=== PATIENT | male | born 1940 | race Caucasian/White ===

== ENCOUNTER → 2017-04-06 | Outpatient (CLI) | payer BC ==
[~2017-04-06] MED LIST: ACET325T30; CALC1TAB9; CLON1TAB3 PO; DICL1GEL28; FLM4 PO; GLUCTAB7; LANS15CA6 PO; LUTE20CA; PSYL55.43 PO; TRAM-453 PO; VITAMIN B50 PO
[2017-04-06 09:35] LABS: BASO % 0.3 %; BASO ABS # 0.01 K/uL (0-0.2); COMPLETE YES; EOS % 2.7 %; HEMATOCRIT 39.5 % (42-52); IG% 0.3 %; LYMPH % 29.1 %; LYMPH ABS # 1.07 K/uL (1.2-3.4); MEAN CELL VOLUME 90.4 fL (80-100); MEAN CORPUSCULAR HGB CONC 33.2 g/dl (32-36); MEAN PLATELET VOLUME 9.2 fL (7.4-10.4); MONO % 8.4 %; NEUT % 59.2 %; PLATELET COUNT 201 K/uL (130-400); RED BLOOD COUNT 4.37 M/uL (4.7-6.1); WHITE BLOOD COUNT 3.68 K/uL (4.8-10.8)
[2017-04-06 09:56] LABS: ALB/GLOB RATIO 1.4 (0.9-2); ALKALINE PHOSPHATASE 47 U/L (45-117); ALT/SGPT 21 U/L (12-78); AST/SGOT 14 U/L (15-37); BLOOD UREA NITROGEN 16 mg/dl (7-18); BUN/CREATININE RATIO 18.9 (10-20); CALCIUM 8.9 mg/dl (8.5-10.1); CARBON DIOXIDE 27 mmol/L (21-32); CHLORIDE 107 mmol/L (98-107); CHOLESTEROL 200 mg/dl (0-200); CREATININE 0.82 mg/dl (0.60-1.40); GLUCOSE 108 mg/dl (70-99); POTASSIUM 4.3 mmol/L (3.5-5.1); SODIUM 139 mmol/L (136-145); TRIGLYCERIDES 94 mg/dl (0-150); VERY LOW DENSITY LIPOPROT CALC 19 mg/dl
[2017-04-06 10:05] LABS: CHOLESTEROL/HDL RATIO 3.6; HDL CHOLESTEROL 56 mg/dl; LDL CHOLESTEROL CALCULATED 125 mg/dl; PROSTATE SPECIFIC ANTIGEN 0.026 ng/ml (0.000-4.000); TOTAL IRON BINDING CAPACITY 292 mcg/dl (250-450)
[2017-04-06 11:44] LABS: ESTIMATED AVERAGE GLUCOSE 117 mg/dl; HA1C FLAG Normal (Normal)
== END | disposition home or self-care (01) ==
LOC: C.LAB 08:38
PROVIDERS: ATTEND Family Medicine
DX: C61 Malignant neoplasm of prostate (principal); R73.09 Other abnormal glucose; E55.9 Vitamin D deficiency, unspecified; D51.9 Vitamin B12 deficiency anemia, unspecified; E78.9 Disorder of lipoprotein metabolism, unspecified; R53.83 Other fatigue

== ENCOUNTER → 2018-01-17 | Outpatient (CLI) | payer BC ==
[~2018-01-17] MED LIST changes: +ACET-1346; -ACET325T30
[2018-01-17 17:52] LABS: BASO % 0.4 %; BASO ABS # 0.02 K/uL (0-0.2); EOS % 1.3 %; EOS ABS # 0.07 K/uL (0-0.5); HEMOGLOBIN 12.9 g/dL (14.0-18.0); IG# 0.01 K/uL (0.00-0.02); LYMPH % 22.1 %; MEAN CELL VOLUME 89.4 fL (80-100); MEAN CORPUSCULAR HEMOGLOBIN 31.2 pg (25-34); MEAN CORPUSCULAR HGB CONC 34.9 g/dl (32-36); MEAN PLATELET VOLUME 9.3 fL (7.4-10.4); MONO % 6.3 %; MONO ABS # 0.34 K/uL (0.11-0.59); NEUT % 69.7 %; PLATELET COUNT 206 K/uL (130-400); RED CELL DISTRIBUTION WIDTH CV 13.8 % (11.5-14.5); RED CELL DISTRIBUTION WIDTH SD 45.8 fL (36.4-46.3); WHITE BLOOD COUNT 5.44 K/uL (4.8-10.8)
[2018-01-17 18:20] LABS: ALBUMIN 3.9 gm/dl (3.4-5.0); ALT/SGPT 21 U/L (12-78); AST/SGOT 15 U/L (15-37); BLOOD UREA NITROGEN 15 mg/dl (7-18); CALCIUM 8.5 mg/dl (8.5-10.1); CARBON DIOXIDE 27 mmol/L (21-32); CHOLESTEROL 194 mg/dl (0-200); CREATININE 0.86 mg/dl (0.60-1.40); GLUCOSE 134 mg/dl (70-99); POTASSIUM 4.1 mmol/L (3.5-5.1); SODIUM 135 mmol/L (136-145); URIC ACID 3.4 mg/dl (2.6-7.2)
[2018-01-17 18:29] LABS: ALKALINE PHOSPHATASE 58 U/L (45-117); LDL CHOLESTEROL CALCULATED 105 mg/dl; TOTAL PROTEIN 6.7 gm/dl (6.4-8.2); TRANSFERRIN 255 mg/dl (200-360)
[2018-01-18 06:07] LABS: HEMOGLOBIN A1C 5.8 % (4.5-5.6)
== END | disposition home or self-care (01) ==
LOC: C.LAB 16:24
PROVIDERS: ATTEND Family Medicine
DX: R73.09 Other abnormal glucose (principal); E55.9 Vitamin D deficiency, unspecified; D51.9 Vitamin B12 deficiency anemia, unspecified; E78.9 Disorder of lipoprotein metabolism, unspecified; R53.83 Other fatigue

== ENCOUNTER → 2018-01-22 | Outpatient (CLI) | payer BC ==
--- NOTE | 2018-01-22 14:51 | DIAGNOSTIC IMAGING REPORT ---
R KNEE 1 OR 2 VIEWS ROUTINE CLINICAL HISTORY: 77 years-old Male presenting with PAIN IN BOTH HIPS AND KNEES. TECHNIQUE: Frontal and lateral views of the right knee were obtained. COMPARISON: Correlation made to plain radiographs of the left knee performed the same day. FINDINGS: Knee joint spaces preserved. No acute fracture or malalignment. No advanced degenerative change. Atherosclerosis. No knee joint effusion. IMPRESSION: 1. No acute osseous injury. 2. No advanced degenerative change. Electronically signed by: Diomedes Henson M.D. 01/22/2018 2:49 PM Dictated Date/Time: 01/22/2018 2:48 PM
--- NOTE | 2018-01-22 14:52 | DIAGNOSTIC IMAGING REPORT ---
R HIP UNILATERAL 2 VIEWS CLINICAL HISTORY: 77 years-old Male presenting with PAIN IN BOTH HIPS AND KNEES. TECHNIQUE: Frontal and frog-leg lateral views of the right hip were obtained. COMPARISON: Correlation made to plain radiographs of the left hip performed the same day. FINDINGS: Osteophytosis noted at the hip joint. The joint space is grossly preserved. Mild subchondral sclerosis suggested in both the acetabulum and the femoral head. No deformity of the femoral head. The hip joint is congruent. No acute fracture or malalignment. Visualized portion of the bony pelvis intact. Brachytherapy seeds noted in the prostate. IMPRESSION: 1. No acute osseous injury. 2. Degenerative changes of the right hip. Electronically signed by: Diomedes Henson M.D. 01/22/2018 2:51 PM Dictated Date/Time: 01/22/2018 2:50 PM
--- NOTE | 2018-01-22 14:55 | DIAGNOSTIC IMAGING REPORT ---
L KNEE 1 OR 2 VIEWS ROUTINE HISTORY: 77 years-old Male PAIN IN BOTH HIPS AND KNEES chronic bilateral knee pain COMPARISON: Right knee radiographs of same day TECHNIQUE: 2 views of the left knee FINDINGS: There is only minimal joint space narrowing with marginal spurring about the knee. No acute fracture or dislocation. No large joint effusion or intra-articular loose body. IMPRESSION: No acute fracture. The above report was generated using voice recognition software. It may contain grammatical, syntax or spelling errors. Electronically signed by: Al Wyman M.D. 01/22/2018 2:54 PM Dictated Date/Time: 01/22/2018 2:48 PM
--- NOTE | 2018-01-22 15:01 | DIAGNOSTIC IMAGING REPORT ---
L HIP UNILATERAL 2 VIEWS HISTORY: 77 years-old Male PAIN IN BOTH HIPS AND KNEES chronic left hip pain COMPARISON: Right hip radiographs of same day TECHNIQUE: 2 views of the left hip FINDINGS: Moderate joint space narrowing with marginal spurring and subchondral sclerosis involves the left femoral acetabular joint. There is no acute fracture or dislocation. The imaged left hemipelvis appears intact. Phleboliths project over the left hemipelvis. Brachytherapy seeds of the prostate. IMPRESSION: Moderate degenerative changes about the left hip without acute fracture or dislocation. The above report was generated using voice recognition software. It may contain grammatical, syntax or spelling errors. Electronically signed by: Al Wyman M.D. 01/22/2018 2:59 PM Dictated Date/Time: 01/22/2018 2:58 PM
== END | disposition home or self-care (01) ==
LOC: C.RAD 14:28
PROVIDERS: ATTEND Family Medicine
DX: M25.551 Pain in right hip (principal); M25.552 Pain in left hip; M25.561 Pain in right knee; M25.562 Pain in left knee; M16.0 Bilateral primary osteoarthritis of hip; M17.0 Bilateral primary osteoarthritis of knee

== ENCOUNTER → 2018-01-24 | Outpatient (CLI) | payer BC | END | disposition home or self-care (01) | LOC: C.PATHSPEC 10:14 | PROVIDERS: ATTEND Urology | DX: R31.0 Gross hematuria (principal); C61 Malignant neoplasm of prostate ==

== ENCOUNTER 2024-05-29 12:40 | Inpatient (IN) ==
[2024-05-29 13:19] LABS: Basophils # (auto) 0.02 K/uL (0.00-0.20); Basophils % (auto) 0.3 %; Eosinophils # (auto) 0.03 K/uL (0.00-0.50); Eosinophils % (auto) 0.4 %; Hematocrit (blood only) 34.5 % (42.0-52.0); Hemoglobin 12.9 g/dl (14.0-18.0); Immature Granulocytes # (auto) 0.13 K/uL (0.01-0.20); Immature Granulocytes % (auto) 1.7 %; Lymphocytes # (auto) 0.95 K/uL (1.20-3.40); Lymphocytes % (auto) 12.7 %; Mean Corpuscular Hemoglobin 32.6 pg (25.0-34.0); Mean Corpuscular Hgb Conc 37.4 g/dL (32.0-36.0); Mean Corpuscular Volume 87.1 fL (80.0-100.0); Mean Platelet Volume 8.9 fL (9.4-12.4); Monocytes # (auto) 0.71 K/uL (0.11-0.59); Monocytes % (auto) 9.5 %; Neutrophils # (auto) 5.66 K/uL (1.40-6.50); Neutrophils % (auto) 75.4 %; Platelet Count 263 K/uL (130-400); RDW Coefficient of Variation 12.1 % (11.5-14.5); RDW Standard Deviation 39.3 fL (36.4-46.3); Red Blood Count 3.96 M/uL (4.70-6.10)
--- NOTE | 2024-05-29 13:33 | Emergency Department Note ---
Impression & Plan Weakness, Acute hyponatremia, Falling, Acute head trauma, Confusion ED Provider Note NAME: HALEY STORM AGE: 84 SEX: M : 1940 ARRIVES VIA: Walk-In INFORMANT: [Patient][] ED PROVIDER(S): [Jose Ramon Saul MD] CHIEF COMPLAINT: Weakness HISTORY OF PRESENT ILLNESS: The patient is an 84-year-old male who apparently, as per his , has become increasingly weak and confused over the last 3 to 4 days. He actually fell 4 times yesterday suffering some skin tears to the left arm and a small superficial laceration to the left lateral forehead/scalp. Today, the patient is too weak to even stand on his own. There has been no cough or congestion, no respiratory complaints. No vomiting or diarrhea. The patient has not had fever. As per his , his tetanus is current. PMHx/PSHx/Social Hx: See Below PHYSICAL EXAM: GENERAL: Patient is in no acute distress. HEENT: The patient has a small superficial abrasion/laceration to the left lateral forehead/scalp. No surrounding erythema. This wound does not require suturing. NECK: No stridor, no adenopathy, nontender cervical spine, trachea is midline. LUNGS: Clear to auscultation bilaterally when listening anterior, no wheeze, no rhonchi, breath sounds equal. HEART: Without murmurs gallops or rubs, regular rate and rhythm. ABDOMEN: Soft, nontender, no peritonitis. EXTREMITIES: No cyanosis, full range of motion of all the joints without pain or difficulty. Patient does have several skin tears with contusions to the left arm. No suturing required. No pain to move the joints of the left arm. There is an abrasion to the left anterior knee. No pain to move the knee joint. NEUROLOGIC: Awake and alert, poor historian, moves all extremities. No speech slur. SKIN: No jaundice, no diaphoresis. DIFFERENTIAL DIAGNOSIS: Intracranial bleeding, C-spine injury, dehydration, electrolyte imbalance, UTI, stroke, among others. EMERGENCY DEPARTMENT PROCEDURES: MEDICAL DECISION MAKING: There is no leukocytosis. A mild anemia was seen. Looking back at previous testing, the patient carries a history of a mild anemia. There was a normal platelet count. No coagulopathy. Sodium was low at 116, this certainly would explain his weakness and confusion. There was no renal failure. Lactic acid level was not elevated making sepsis less likely. No concerning liver enzyme elevation. ECG shows a sinus bradycardia, no ischemia. Cardiac enzyme testing x 1 is not consistent with acute cardiac injury. Urinalysis showed some ketones, no infection. COVID, influenza and RSV test were negative. Chest x- ray showed a potential infiltrate versus atelectasis in the left lower lung. Of note, the patient has not had respiratory complaints. Brain CT shows no acute bleed or mass effect. C-spine CT shows no acute fracture. Patient's skin tears and contusions did not require anything more than conservative management. The patient was given a 500 cc saline bolus for his hyponatremia. He received IV Zofran for nausea and vomiting that developed while here in the ED. I did speak with the patient and his , I spoke with case management, the on- call hospitalist has been consulted. I do believe the hyponatremia is causing his complaints. At this point, the cause of the hyponatremia is not clear. Prior/Outside records/notes reviewed: None ECG per my interpretation: Indication was weakness. The ECG shows a sinus bradycardia with a rate of 59. There is no acute ST elevation, no PVCs. The QTc is 421. Continuous Cardiac Monitoring per my interpretation: An order was placed for continuous cardiac monitoring. The monitor shows a rate of 60 with normal sinus rhythm. Imaging/x-ray results per my interpretation: Chest x-ray shows a patchy consolidation in the area of the left lower lung, this could be atelectasis or pneumonia. Chronic Medical/Social conditions affecting care: Advanced age. Care/Management discussed with: Case management, the on-call hospitalist. Level of care consideration(s): After review of the information above and other included data: --I believe the patient requires escalation of care to admission Critical Care Note: I have personally spent 41 minutes of critical care time in the direct management of this patient. This includes bedside care, interpretation of diagnostic studies, and testing, discussion with consultants, patient, and family members, and other required patient management activities. This 41 minutes is in excess of all separately billable procedures. DISPOSITION: Admission Past Med/Surg History Problem List (Updated 05/29/24 @ 19:25 by Jose Ramon Saul MD) Confusion (Acute) Acute head trauma (Acute) Falling (Acute) Acute hyponatremia (Acute) Weakness (Acute) Acute hyponatremia Acute foreign body of right ear canal Gait disturbance Tick bite Nocturia Hip pain Situational stress Hip arthritis Multifactorial gait disorder Impacted ear wax Joint pain Weight loss Adult situational stress disorder Stress due to family tension Mild cognitive disorder GERD (gastroesophageal reflux disease) Sensorineural hearing loss (SNHL) of both ears Trochanteric bursitis, right hip Esophageal dysphagia Medical History Greater trochanteric pain syndrome Sinusitis Impacted cerumen, right ear Right hip pain Encounter for pre-operative examination Encounter for pre-operative examination Poor historian Osteoarthritis Stomach ulcer HX OF ULCER GERD (gastroesophageal reflux disease) Cancer PROSTATE (RADIATION [place]) - 2012 Memory problem FORGETFULL WITH NAMES Surgical History History of cataract surgery History of esophagogastroduodenoscopy (EGD) History of colonoscopy History of herniorrhaphy History of tooth extraction Family History Mother Diabetes Uncle Colorectal cancer Aunt Colorectal cancer Father Stroke Denies family history of Ovarian cancer Prostate cancer Myocardial infarction Breast cancer Lung cancer Social History Smoking Status: Never smoker Second Hand Exposure: No; Do You Dip or Chew Tobacco: No; Hx Alcohol Use: Yes Alcohol type: wine Alcohol Intake Frequency: 2-3 x/Week Hx Substance Use: No Preferred Language: Lao Communication Ability: Effective Visual Impairment: Limited Hearing Ability: Use of Hearing Aid Towel [place] Required: No marital status: Current Living Situation: Spouse current occupational status: retired How many Children do You have: 3 Feels Safe at Home: Yes Childhood Exposure to Second-Hand Smoke: No Diet: regular caffeine: Yes Dental Care, Regularly: Yes Physical Activity Frequency: Daily Physical Activity Frequency Comment: walking Seatbelt Use: always Sunscreen Use: Yes Assistive Devices: Glasses and Hearing Aid - Left Allergies Allergies Allergy/AdvReac Type Severity Reaction Status Date / Time No Known Drug Allergies Allergy Verified 05/29/24 14:24 Home Meds Home Medications Medication Instructions Recorded Confirmed calcium citrate 315 mg 1 tab PO 2XWK 10/30/18 05/29/24 calcium-vitamin D3 6.25 mcg (250 unit) tablet (Citracal + Vitamin D Maximum) diclofenac sodium 1 % topical gel 2 g topical QID 08/23/22 05/29/24 Previous Rx's Medication Instructions Recorded sertraline 50 mg tablet 75 mg (1.5 x 50 mg) PO DAILY #45 07/25/23 tabs rivastigmine tartrate 3 mg capsule 3 mg PO BID #60 caps 02/21/24 methylprednisolone 4 mg tablet 4 mg PO DAILY #90 tabs 04/29/24 desmopressin 0.2 mg tablet 0.6 mg (3 x 0.2 mg) PO HS #90 tabs 05/21/24 Results & Data (ED) Vital Signs Vital Signs - 24 hr 05/29/24 12:44 05/29/24 12:48 05/29/24 14:15 Temperature 36.7 C Temperature Source Temporal Artery Scan Pulse Rate 60 54 L 61 Pulse Rate from SpO2 Sensor 61 Pulse Rhythm Regular Respiratory Rate 18 14 20 Respiratory Effort / Characteristics Non-Labored Spontaneous Respiratory Depth Normal Blood Pressure 166/72 H 140/64 Blood Pressure Mean 103 94 Pulse Oximetry 97 98 98 Oxygen Delivery Method Room Air Room Air Sepsis Recent Fever Within 48 Hours No Sepsis New/Unexplained Change in Mental Status No Sepsis Action Taken by Nursing No Action Required 05/29/24 14:17 05/29/24 14:30 Temperature Temperature Source Pulse Rate 61 62 Pulse Rate from SpO2 Sensor 61 Pulse Rhythm Respiratory Rate 12 Respiratory Effort / Characteristics Respiratory Depth Blood Pressure 140/54 L Blood Pressure Mean 82 Pulse Oximetry 98 Oxygen Delivery Method Sepsis Recent Fever Within 48 Hours Sepsis New/Unexplained Change in Mental Status Sepsis Action Taken by [facility] Medications Current Medication List: was personally reviewed by me Laboratory Data Attestation: I reviewed the patient's lab results. 05/29/24 13:00 05/29/24 18:05 Lab Results 05/29/24 05/29/24 05/29/24 Range/Units 13:00 13:38 14:15 WBC 7.50 (4.8-10.8) K/ul RBC 3.96 L (4.70-6.10) M/uL Hgb 12.9 L (14.0-18.0) g/dl Hct 34.5 L (42.0-52.0) % MCV 87.1 (80.0-100.0) fL MCH 32.6 (25.0-34.0) pg MCHC 37.4 H (32.0-36.0) g/dL RDW Std Deviation 39.3 (36.4-46.3) fL RDW Coeff of Elisa 12.1 (11.5-14.5) % Plt Count 263 (130-400) K/uL MPV 8.9 L (9.4-12.4) fL Immature Gran % (Auto) 1.7 % Neut % (Auto) 75.4 % Lymph % (Auto) 12.7 % [place] % (Auto) 9.5 % Eos % (Auto) 0.4 % Baso % (Auto) 0.3 % Neut # (Auto) 5.66 (1.40-6.50) K/uL Lymph # (Auto) 0.95 L (1.20-3.40) K/uL [place] # (Auto) 0.71 H (0.11-0.59) K/uL Eos # (Auto) 0.03 (0.00-0.50) K/uL Baso # (Auto) 0.02 (0.00-0.20) K/uL Immature Gran # (Auto) 0.13 (0.01-0.20) K/uL PT 10.8 (9.0-12.0) Seconds INR 1.0 (0.9-1.1) APTT 29 (21-31) Seconds PTT Ratio 1.1 Sodium 116 L* (136-145) mmol/L Potassium 4.1 (3.5-5.1) mmol/L Chloride 86 L (98-107) mmol/L Carbon Dioxide 24 (21-32) mmol/L Anion Gap 6 (3-11) BUN 14 (6-23) mg/dl Creatinine 0.55 L (0.6-1.4) mg/dl Est Cr Clr Drug Dosing Not Reportable Est GFR ( Amer) 110.1 ml/min Est GFR (Non-Af Amer) 95.0 ml/min BUN/Creatinine Ratio 25.5 H (10-20) Glucose 104 H (70-99(Fasting)) mg/dl Lactate 0.8 (0.4-2.0) mmol/L Calcium 8.8 (8.6-10.3) mg/dl Magnesium 2.0 (1.7-2.4) mg/dl Total Bilirubin 1.2 H (0.2-1.0) mg/dl AST 27 (13-39) U/L ALT 17 (7-52) U/L Alkaline Phosphatase 54 (34-104) U/L Troponin I High Sens 8.0 (0-20) pg/ml Total Protein 6.8 (6.0-8.3) gm/dl Albumin 4.5 (3.4-5.0) gm/dl Globulin 2.3 L (2.5-4.0) gm/dl Albumin/Globulin Ratio 2.0 (0.9-2) Procalcitonin < 0.02 (0-0.5) ng/ml Urine Color Yellow Urine Appearance Clear (Clear) Urine pH 7.5 (4.5-7.5) Ur Specific [place] 1.017 (1.000-1.030) Urine Protein Negative (Negative) Urine Glucose (UA) Negative (Negative) Urine Ketones Trace H (Negative) Urine Blood Negative (Negative) Urine Nitrite Negative (Negative) Urine Bilirubin Negative (Negative) Urine Urobilinogen Negative (Negative) Ur Leukocyte Esterase Negative (Negative) SARS-CoV-2 (PCR) NEGATIVE (Negative) Influenza Type A (PCR) Negative (Neg) Influenza Type B (PCR) Negative (Neg) RSV (RT-PCR) Negative (Neg) Administered Medications Discontinued Medications Sodium Chloride (Nss) 500 mls @ 999 mls/hr IV .Q31M ONE Stop: 05/29/24 13:59 Last Infusion: 05/29/24 14:51 Dose: Infused Documented By: Admin: 05/29/24 13:35 Dose: 999 mls/hr Documented By: MONICA Sodium Chloride (Nss) 500 mls @ 999 mls/hr IV .Q31M ONE Stop: 05/29/24 14:14 Last Admin: 05/29/24 14:51 Dose: Not Given Documented By: MONICA Sodium Chloride (Hypertonic Saline 3%) 50 mls @ 300 mls/hr IV .Q10M ONE; Protocol Stop: 05/29/24 15:39 Last Infusion: 05/29/24 16:11 Dose: Infused Documented By: MONICA Co-signed By: NASIM Admin: 05/29/24 16:00 Dose: 300 mls/hr Documented By: MONICA Co-signed By: SNS Ondansetron HCl (Ondansetron Inj 2 Mg/Ml 2 Ml Vial) Confirm Administered Dose 4 mg .ROUTE .STK-MED ONE Stop: 05/29/24 14:07 Last Admin: 05/29/24 14:08 Dose: 4 mg Documented By: FAYE Imaging Data Radiologist's Impression: Chest X-Ray 05/29/24 12:48 XR chest 1V portable HISTORY: Sepsis COMPARISON: Chest 02/06/2008. FINDINGS: No pneumothorax. No pleural effusions. The heart is normal in size. Mild diffuse interstitial thickening. This may be chronic. No evidence for pulmonary edema. No acute fractures. Patchy left retrocardiac airspace opacities are noted. IMPRESSION: Patchy left retrocardiac airspace opacities. This could represent atelectasis or a mild pneumonitis. ACT 112: Negative or not required by law. Electronically signed by: Tha Zelaya M.D. 05/29/2024 3:[address] 05/29/24 13:[address] DOSE: HISTORY: fall, confusion TECHNIQUE: Multiaxial CT images of the head were performed without the use of intravenous contrast. Automated exposure control was utilized for this study. A dose lowering technique was utilized adhering to the principles of ALARA. Comparison: None. Findings: A few partially opacified ethmoid air cells. The mastoid air cells are clear. No fluid levels within the paranasal sinuses. The calvarium and skull base are intact. There is no mass, hematoma, midline shift, acute infarct. White matter hypodensity is nonspecific but suggestive of microvascular ischemic change. The ventricles and sulci demonstrate mild age-related involutional changes. Impression: No acute intracranial abnormality. Atrophy and microvascular ischemic changes. ACT 112: Negative or not required by law. Electronically signed by: Tha Zelaya M.D. 05/29/2024 2:[address] 05/29/24 13:29 CT cervical spine wo con CLINICAL HISTORY: fall TECHNIQUE: Multidetector row helical CT of the cervical spine was performed without administration of intravenous contrast. Coronal and sagittal reformations were obtained. Automated dose lowering techniques and/or adjustment according to patient size were utilized for this exam. Comparison: None available at the time of this dictation. FINDINGS: No acute fractures or subluxations are identified. Degenerative changes are seen in the visualized spine. The alignment is normal. Soft tissues are unremarkable. IMPRESSION: Degenerative changes without evidence of acute bony injury. ACT 112: Negative or not required by law. Electronically signed by: Gabriel Jain M.D. 05/29/2024 2:03 PM Discharge Plan Visit Data Chief Complaint: Weakness Stated Complaint: 3 FALLS, HIT HEAD, BACK [place]ISE ED Provider: Jose Ramon Saul Discharge Problem: Weakness, Acute hyponatremia, Falling, Acute head trauma, Confusion Patient Disposition: Admitted As Inpatient Condition: Serious Discharge Instructions Interventions: ED Discharge Assessment Last Done: 05/29/24 18:17 Discharge Problem: Acute head trauma Qualifiers: Encounter type: initial encounter Qualified Code(s): S09.90XA - Unspecified injury of head, initial encounter
[2024-05-29] MEDS: SODIUM CHLORIDE 0.9% 500 ML IV ONE ×2 (13:35→14:51)
[2024-05-29 13:40] LABS: Alanine Aminotransferase 17 U/L (7-52); Albumin Level 4.5 gm/dl (3.4-5.0); Alkaline Phosphatase 54 U/L (34-104); Anion Gap 6 (3-11); Aspartate Aminotransferase 27 U/L (13-39); BUN Creatinine Ratio 25.5 (10-20); Bilirubin,Total 1.2 mg/dl (0.2-1.0); Blood Urea Nitrogen 14 mg/dl (6-23); Calcium 8.8 mg/dl (8.6-10.3); Carbon Dioxide 24 mmol/L (21-32); Chloride 86 mmol/L (98-107); Est GFR (African American) 110.1 ml/min; Globulin 2.3 gm/dl (2.5-4.0); Glucose 104 mg/dl (70-99(Fasting)); Potassium 4.1 mmol/L (3.5-5.1); Sodium 116 mmol/L (136-145); Total Protein 6.8 gm/dl (6.0-8.3)
[2024-05-29 13:55] LABS: Partial Thromboplastin Ratio 1.1; Partial Thromboplastin Time 29 Seconds (21-31); Prothrombin Time 10.8 Seconds (9.0-12.0)
--- NOTE | 2024-05-29 14:04 | CT Scan Report ---
CT cervical spine wo con CLINICAL HISTORY: fall TECHNIQUE: Multidetector row helical CT of the cervical spine was performed without administration of intravenous contrast. Coronal and sagittal reformations were obtained. Automated dose lowering techn iques and/or adjustment according to patient size were utilized for this exam. Comparison: None available at the time of this dictation. FINDINGS: No acute fractures or subluxations are identified. Degenerative changes are seen in the visualized sp ine. The alignment is normal. Soft tissues are unremarkable. IMPRESSION: Degenerative changes without evidence of acute bony injury. ACT 112: Negative or not required by law. Electronically signed by: Gabriel Jain M.D. 05/29/2024 2:03 PM
[2024-05-29] MEDS: ONDANSETRON INJ 2 MG/ML 2 ML VIAL ONE (14:08)
--- NOTE | 2024-05-29 14:11 | CT Scan Report ---
HEAD CT NONCONTRAST CT DOSE: HISTORY: fall, confusion TECHNIQUE: Multiaxial CT images of the head were performed without the use of intravenous contrast. A utomated exposure control was utilized for this study. A dose lowering technique was utilized adheri ng to the principles of ALARA. Comparison: None. Findings: A few partially opacified ethmoid air cells. The mastoid air cells are clear. No fluid leve ls within the paranasal sinuses. The calvarium and skull base are intact. There is no mass, hematoma, midline shift, acute infarct. White matter hypodensity is nonspecific but suggestive of microvascula r ischemic change. The ventricles and sulci demonstrate mild age-related involutional changes. Impression: No acute intracranial abnormality. Atrophy and microvascular ischemic changes. ACT 112: Negative or not required by law. Electronically signed by: Tha Zelaya M.D. 05/29/2024 2:10 PM
--- NOTE | 2024-05-29 14:23 | History & Physical Report ---
Date of Service May 29, 2024 Assessment & Plan (1) Acute hyponatremia: Plan: Suspected secondary to recent desmopressin use. Unclear why dose was so high for nocturia (normal dosing is 0.05-0.1mg and patient prescribed 0.6mg). Recommend avoiding desmopressin altogether in future for nocturia especially with corticosteroid use which enhances the hyponatremic effect. Will repeat level now and dose hypertonic saline or D5W as needed for rate increase Low likelihood of developing central pontine myelinolysis as likely happened acutely rather than chronically after he started on desmopressin on 05/21. Irregardless will aim no more than 8 correction over 24 hours (124 mmol/L @ 1pm 05/30), likely to sudden jump up after desmopressin. (2) Hip arthritis: Plan: Per PCP note taking daily or every other day methylprednisolone for this which has improved his hip and lumbar spine pain Adrenal insufficiency possibility although given clear alternative cause of hyponatremia would only workup for this is sodium does not normalize after discontinuation of desmopressin (3) Gait disturbance: Plan: Suspected secondary to hyponatremia PT/OT Plan VTE Prophylaxis - Lovenox 40mg SQ daily Diet - NPO Disposition - admit to PCU Admission and Anticipated Discharge Date Admission Date: May 29, 2024 History of Present Illness Chief Complaint: Generalized weakness, falls Primary Care Provider: Mike Sullivan MD Alvino Ibanez is 84 year old male who presents to the ER with generalized weakness, multiple falls. Unable to get any history from the patient, he is unsure where he is and why he is here. His reports significant decline over the last 4 days and now he cannot get up to walk at all. No significant injury other than skin tears from his falls but fell and hit his head in the bathroom last night. No hip pain. He has baseline dementia and difficulty with the dates but usually ambulatory without aids and goes for walks frequently. No respiratory, urinary, gastrointestinal symptoms. No fever or chills. No one sided weakness, change in speech, hearing or vision. Notably he was recently started on desmopressin for nocturia at 0.6mg PO daily (usual starting dose 0.05-0.1mg) in the setting of chronic steroid use. He started this on 05/21 and no labs since then. Sodium was noted to be 116 in the ER. Therefore he was referred to medicine for admission and ongoing management of hyponatremia. Allergies Allergy/AdvReac Type Severity Reaction Status Date / Time No Known Drug Allergies Allergy Verified 05/29/24 14:24 Home Medications Medication Instructions Recorded Confirmed Type calcium citrate 315 mg 1 tab PO 2XWK 10/30/18 05/29/24 History calcium-vitamin D3 6.25 mcg (250 unit) tablet (Citracal + Vitamin D Maximum) diclofenac sodium 1 % topical gel 2 g topical QID 08/23/22 05/29/24 History sertraline 50 mg tablet 75 mg (1.5 x 50 mg) PO DAILY #45 07/25/23 05/29/24 Rx tabs rivastigmine tartrate 3 mg capsule 3 mg PO BID #60 caps 02/21/24 05/29/24 Rx methylprednisolone 4 mg tablet 4 mg PO DAILY #90 tabs 04/29/24 05/29/24 Rx desmopressin 0.2 mg tablet 0.6 mg (3 x 0.2 mg) PO HS #90 tabs 05/21/24 05/29/24 Rx Past Med/Surg History Problem List (Updated 05/29/24 @ 19:25 by Jose Ramon Saul MD) Confusion (Acute) Acute head trauma (Acute) Falling (Acute) Acute hyponatremia (Acute) Weakness (Acute) Acute hyponatremia Acute foreign body of right ear canal Gait disturbance Tick bite Nocturia Hip pain Situational stress Hip arthritis Multifactorial gait disorder Impacted ear wax Joint pain Weight loss Adult situational stress disorder Stress due to family tension Mild cognitive disorder GERD (gastroesophageal reflux disease) Sensorineural hearing loss (SNHL) of both ears Trochanteric bursitis, right hip Esophageal dysphagia Medical History Greater trochanteric pain syndrome Sinusitis Impacted cerumen, right ear Right hip pain Encounter for pre-operative examination Encounter for pre-operative examination Poor historian Osteoarthritis Stomach ulcer HX OF ULCER GERD (gastroesophageal reflux disease) Cancer PROSTATE (RADIATION [place]) - 2012 Memory problem FORGETFULL WITH NAMES Surgical History History of cataract surgery History of esophagogastroduodenoscopy (EGD) History of colonoscopy History of herniorrhaphy History of tooth extraction Family History Mother Diabetes Uncle Colorectal cancer Aunt Colorectal cancer Father Stroke Denies family history of Ovarian cancer Prostate cancer Myocardial infarction Breast cancer Lung cancer Social History Smoking Status: Never smoker Second Hand Exposure: No; Do You Dip or Chew Tobacco: No; Hx Alcohol Use: Yes Alcohol type: wine Alcohol Intake Frequency: 2-3 x/Week Hx Substance Use: No Preferred Language: Greek Communication Ability: Effective Visual Impairment: Limited Hearing Ability: Use of Hearing Aid Firer Retort Required: No Beliefs That Will Affect Care: None marital status: Current Living Situation: Spouse current occupational status: retired How many Children do You have: 3 Feels Safe at Home: Yes Safety Concerns: Feels Safe At This Time Childhood Exposure to Second-Hand Smoke: No Diet: regular caffeine: Yes Dental Care, Regularly: Yes Physical Activity Frequency: Daily Physical Activity Frequency Comment: walking Seatbelt Use: always Sunscreen Use: Yes Assistive Devices: Glasses Review of Systems Review of Systems: Unobtainable due to cognitive status Physical Exam Constitutional: well developed, well nourished and + frail appearing; no acute distress Eyes: PERRL, conjunctivae normal, anicteric sclerae ENMT: external ear and nose normal, oropharynx normal Respiratory: normal respiratory effort, lungs clear to auscultation Cardiovascular: RRR, no murmur, no edema Gastrointestinal (Abdomen): normal bowel sounds, soft, nontender, no hepatosplenomegaly Skin: multiple skin tears on left arm and one on left forehead without ecchymosis but no surrounding cellulitis Neurologic: moves all extremities, awake and + confused; + abnormal deep tendon reflexes (increased reflexes knee and elbow equal b/l) and no focal motor deficits Motor/Sensory: no tremor and no pronator drift Cranial Nerves: PERRL, EOM intact bilaterally, normal facial strength, tongue midline, able to rotate head bilaterally, able to elevate shoulders bilaterally and symmetric palate elevation Psychiatric: Orientation: alert and oriented to person; + not oriented to place and + not oriented to time Genitourinary: no CVA tenderness Results & Data Results & Data Vital Signs (Past 12 Hours) Vital Signs Temp Pulse Resp BP Pulse Ox O2 Del Method 05/29/24 12:44 36.7 C 60 18 166/72 H 97 Room Air Laboratory Results Abnormal lab results 05/29/24 05/29/24 05/29/24 Range/Units 13:00 14:15 14:46 RBC 3.96 L (4.70-6.10) M/uL Hgb 12.9 L (14.0-18.0) g/dl Hct 34.5 L (42.0-52.0) % MCHC 37.4 H (32.0-36.0) g/dL MPV 8.9 L (9.4-12.4) fL Lymph # (Auto) 0.95 L (1.20-3.40) K/uL [place]ady # (Auto) 0.71 H (0.11-0.59) K/uL Sodium 116 L* 117 L* (136-145) mmol/L Chloride 86 L 88 L (98-107) mmol/L Creatinine 0.55 L 0.48 L (0.6-1.4) mg/dl BUN/Creatinine Ratio 25.5 H 27.1 H (10-20) Glucose 104 H 109 H (70-99(Fasting)) mg/dl Calcium 7.9 L (8.6-10.3) mg/dl Total Bilirubin 1.2 H (0.2-1.0) mg/dl Globulin 2.3 L (2.5-4.0) gm/dl Urine Ketones Trace H (Negative) Diagnostic Findings HEAD CT NONCONTRAST CT DOSE: HISTORY: fall, confusion TECHNIQUE: Multiaxial CT images of the head were performed without the use of intravenous contrast. Automated exposure control was utilized for this study. A dose lowering technique was utilized adhering to the principles of ALARA. Comparison: None. Findings: A few partially opacified ethmoid air cells. The mastoid air cells are clear. No fluid levels within the paranasal sinuses. The calvarium and skull base are intact. There is no mass, hematoma, midline shift, acute infarct. White matter hypodensity is nonspecific but suggestive of microvascular ischemic change. The ventricles and sulci demonstrate mild age-related involutional changes. Impression: No acute intracranial abnormality. Atrophy and microvascular ischemic changes. CT cervical spine wo con CLINICAL HISTORY: fall TECHNIQUE: Multidetector row helical CT of the cervical spine was performed without administration of intravenous contrast. Coronal and sagittal reformations were obtained. Automated dose lowering techniques and/or adjustment according to patient size were utilized for this exam. Comparison: None available at the time of this dictation. FINDINGS: No acute fractures or subluxations are identified. Degenerative changes are seen in the visualized spine. The alignment is normal. Soft tissues are unremarkable. IMPRESSION: Degenerative changes without evidence of acute bony injury. XR chest 1V portable HISTORY: Sepsis COMPARISON: Chest 02/06/2008. FINDINGS: No pneumothorax. No pleural effusions. The heart is normal in size. Mild diffuse interstitial thickening. This may be chronic. No evidence for pulmonary edema. No acute fractures. Patchy left retrocardiac airspace opacities are noted. IMPRESSION: Patchy left retrocardiac airspace opacities. This could represent atelectasis or a mild pneumonitis. Medications Administered ER Medications Given: Normal saline 500ml bolus ECG Rate (beats per minute): 59 Rhythm: normal sinus Findings: + left axis deviation Comparison ECG Date: from (Jul 13, 2013) Change: no significant change Code Status & VTE Plan Code Status Full VTE Prophylaxis Plan VTE Prophylaxis will be ordered: Yes PG Care Time/CCT Total # of Minutes Spent Total Time Spent with Patient: Total time spent is greater than 50% in coordination of care (as documented) at patient's floor/unit and/or counseling patient: Coding Level of Care Code 26584 INT INP/OBS CARE 3/75MIN Diagnoses Acute hyponatremia E87.1 Hip arthritis M16.10 Gait disturbance R26.9
[2024-05-29 14:39] LABS: Influenza A virus by PCR Negative (Neg); Influenza B virus by PCR Negative (Neg); RSV by PCR Negative (Neg); SARS CoV2 RNA(COVID-19) Ceph NEGATIVE (Negative)
[2024-05-29 14:44] LABS: Appearance Urine Clear (Clear); Bilirubin Urine Negative (Negative); Blood Urine Negative (Negative); Color Urine Yellow; Glucose Urine UA Negative (Negative); Ketones Urine Trace (Negative); Leukocyte Esterase Urine Negative (Negative); Nitrite Urine Negative (Negative); Protein Urine Negative (Negative); Specific Gravity Urine 1.017 (1.000-1.030); Urobilinogen Urine Negative (Negative); pH Urine 7.5 (4.5-7.5)
[2024-05-29] MEDS ORDERED: STAT IV/IM STA ×3 (15:20→23:59)
[2024-05-29 15:21] LABS: Anion Gap 5 (3-11); BUN Creatinine Ratio 27.1 (10-20); Blood Urea Nitrogen 13 mg/dl (6-23); Calcium 7.9 mg/dl (8.6-10.3); Carbon Dioxide 24 mmol/L (21-32); Chloride 88 mmol/L (98-107); Est GFR (African American) 116.5 ml/min; Est GFR (Non-African American) 100.5 ml/min; Glucose 109 mg/dl (70-99(Fasting)); Potassium 4.1 mmol/L (3.5-5.1); Sodium 117 mmol/L (136-145)
--- NOTE | 2024-05-29 15:44 | XRay Report ---
XR chest 1V portable HISTORY: Sepsis COMPARISON: Chest 02/06/2008. FINDINGS: No pneumothorax. No pleural effusions. The heart is normal in size. Mild diffuse interstiti al thickening. This may be chronic. No evidence for pulmonary edema. No acute fractures. Patchy left retrocardiac airspace opacities are noted. IMPRESSION: Patchy left retrocardiac airspace opacities. This could represent atelectasis or a mild pneumonitis. ACT 112: Negative or not required by law. Electronically signed by: Tha Zelaya M.D. 05/29/2024 3:42 PM
[2024-05-29] MEDS: SODIUM CHLORIDE 3 % 50 ML IV ONE (16:00)
--- NOTE | 2024-05-29 17:10 | Electrocardiogram Report ---
Test Reason : Blood Pressure : */* mmHG Vent. Rate : 59 BPM Atrial Rate : 59 BPM P-R Int : 126 ms QRS Dur : 82 ms QT Int : 426 ms P-R-T Axes : 68 -39 55 degrees QTcB Int : 421 ms Sinus bradycardia Left axis deviation Abnormal ECG When compared with ECG of 23-Jul-2013 16:00, No significant change Confirmed by Kwesi Livingston ([id number]) on 05/29/2024 5:10:27 PM Referred By: REFERRED SELF Confirmed By: Kwesi Livingston
[2024-05-29] MEDS: SODIUM CHLORIDE 3 % 100 ML IV ONE (19:29)
[2024-05-29] MEDS: ENOXAPARIN INJ 40 MG/0.4 ML SYR SQ SCH (21:26)
[2024-05-29] MEDS: RIVASTIGMINE TARTRATE 1.5 MG CAP PO SCH (21:26)
[2024-05-30] MEDS: SODIUM CHLORIDE 3 % 50 ML IV ONE (00:21)
[2024-05-30] MEDS: OLANZapine 10 MG/2.1 ML SDV IM ONE (07:59)
--- NOTE | 2024-05-30 08:58 | Nephrology Consultation ---
Date of Consultation May 30, 2024 Assessment & Plan (1) Hyponatremia: Chronic. Sodium improving at acceptable rate with therapy. Volume status appears hypovolemic. Dysnatremia attributed to DDAVP use + poor PO intake. The medication has been stopped. Urine osmolality requested + Zakia/UK this AM. Monito r closely as I would anticipate sodium to auto-correct. Symptoms include weakness and mental status changes. If related, these should improve as serum sodium is correcting. Document I/O's as able. Q4 hour serum sodium being monitored. Follow up labs pending. Additional recommendations can be made at that time. If serum sodium is not correcting or correcting too fast, consideration should be given to catheterization for a urine sample/accurate I/O's. (2) Nocturia: Hold desmopressin. 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 Agitation improving. Frequent orientation. History of Present Illness Reason for Consultation: Hyponatremia Requesting Physician: Jelani Justice Attending Physician: Jelani Justice History of Present Illness Mr. Alvino Ibanez is 84 year-old male with dementia, OA/DJD, and a history of prostate cancer treated with XRT in the past who presented to the ER at [facility] yesterday with generalized weakness and multiple falls. Symptoms were reportedly progressive over ~4 days. History was limited to review of the medical record. Mr. Ibanez is only answering questions in 1-2 words and not clearly oriented at this time. I am not clear on his baseline cognitive status. Thankfully, he did not sustain significant injury from his falls. CT of the head was reassuring. Alvino was reportedly eating reasonably well. He did not endorse significant GI symptoms. He does not have significant fluid retention or edema. The patient had been started on desmopressin 0.6 mg QHS for nocturia by his PCP on May 21. He is maintained on methylprednisolone for OA/DJD particularly involving the hip. He is maintained on rivastigmine for dementia. Evaluation in the ER was notable for a serum sodium of 116 mmol/L. Electrolytes otherwise normal. Serum creatinine normal. 0.9% NSS was infused followed by 150 ml of 3% saline. Overnight, serum sodium has increased from 116-120 mmol/L. The patient is non-oliguric. He is incontinent of urine and I/O's are not clearly documented. He is normotensive. He is not eating or drinking since hospital admission. Allergies Allergy/AdvReac Type Severity Reaction Status Date / Time No Known Drug Allergies Allergy Verified 05/29/24 14:24 Home Medications Medication Instructions Recorded Confirmed Type calcium citrate 315 mg 1 tab PO 2XWK 10/30/18 05/29/24 History calcium-vitamin D3 6.25 mcg (250 unit) tablet (Citracal + Vitamin D Maximum) diclofenac sodium 1 % topical gel 2 g topical QID 08/23/22 05/29/24 History sertraline 50 mg tablet 75 mg (1.5 x 50 mg) PO DAILY #45 07/25/23 05/29/24 Rx tabs rivastigmine tartrate 3 mg capsule 3 mg PO BID #60 caps 02/21/24 05/29/24 Rx methylprednisolone 4 mg tablet 4 mg PO DAILY #90 tabs 04/29/24 05/29/24 Rx desmopressin 0.2 mg tablet 0.6 mg (3 x 0.2 mg) PO HS #90 tabs 05/21/24 05/29/24 Rx Patient History Medical History (Updated 05/30/24 @ 09:13 by Tyler Lundberg DO) Greater trochanteric pain syndrome Sinusitis Impacted cerumen, right ear Right hip pain Poor historian Osteoarthritis Stomach ulcer HX OF ULCER GERD (gastroesophageal reflux disease) Cancer PROSTATE (RADIATION [place]) - 2012 Memory problem FORGETFULL WITH NAMES Surgical History History of cataract surgery History of esophagogastroduodenoscopy (EGD) History of colonoscopy History of herniorrhaphy RIGHT History of tooth extraction Family History Mother Diabetes Uncle Colorectal cancer Aunt Colorectal cancer Father Stroke Denies family history of Ovarian cancer Prostate cancer Myocardial infarction Breast cancer Lung cancer Social History Smoking Status: Never smoker Second Hand Exposure: No; Do You Dip or Chew Tobacco: No; Hx Alcohol Use: Yes Alcohol type: wine Alcohol Intake Frequency: 2-3 x/Week Hx Substance Use: No Preferred Language: Citizen Of [place] Communication Ability: Effective Visual Impairment: Limited Hearing Ability: Use of Hearing Aid Asw/Asuw Tactical Air Controller Required: No Beliefs That Will Affect Care: None marital status: Current Living Situation: Spouse current occupational status: retired How many Children do You have: 3 Feels Safe at Home: Yes Safety Concerns: Feels Safe At This Time Childhood Exposure to Second-Hand Smoke: No Diet: regular caffeine: Yes Dental Care, Regularly: Yes Physical Activity Frequency: Daily Physical Activity Frequency Comment: walking Seatbelt Use: always Sunscreen Use: Yes Assistive Devices: Glasses Review of Systems Review of Systems: All systems reviewed & are unremarkable except as noted in HPI & below and Unobtainable due to cognitive status (limited ROS due to mental status) Physical Exam Constitutional: well developed and + frail appearing; no acute distress Eyes: + anicteric sclerae; no corneal abnormal ity ENMT: Mouth: + dry oral mucous membranes Neck: normal visual inspection and trachea midline Respiratory: normal respiratory effort Auscultation: lungs clear to auscultation bilaterally Cardiovascular: Rate/Rhythm: regular rate Heart Sounds: normal S1 and normal S2 Extremities: no edema Musculoskeletal: Extremities: no cyanosis and no clubbing Skin: + turgor decreased, + lesion (multiple s kin tears) and + ecchymosis; no jaundice Neurologic: Motor/Sensory: no tremor and no asterixis Psychiatric: Orientation: alert; + not oriented x 3 Results & Data Vital Signs (Past 12 Hours) Vital Signs Temp Pulse Resp BP Pulse Ox O2 Del Method 05/30/24 08:25 76 16 139/69 100 Room Air 05/29/24 22:59 36.9 C 72 20 161/75 H 97 Room Air Laboratory Results Laboratory Results - last 24 hr 05/29/24 05/29/24 05/29/24 13:00 13:38 14:15 WBC 7.50 RBC 3.96 L Hgb 12.9 L Hct 34.5 L MCV 87.1 MCH 32.6 MCHC 37.4 H RDW Std Deviation 39.3 RDW Coeff of Elisa 12.1 Plt Count 263 MPV 8.9 L Immature Gran % (Auto) 1.7 Neut % (Auto) 75.4 Lymph % (Auto) 12.7 [place] % (Auto) 9.5 Eos % (Auto) 0.4 Baso % (Auto) 0.3 Neut # (Auto) 5.66 Lymph # (Auto) 0.95 L [place] # (Auto) 0.71 H Eos # (Auto) 0.03 Baso # (Auto) 0.02 Immature Gran # (Auto) 0.13 PT 10.8 INR 1.0 APTT 29 PTT Ratio 1.1 Sodium 116 L* Potassium 4.1 Chloride 86 L Carbon Dioxide 24 Anion Gap 6 BUN 14 Creatinine 0.55 L Est Cr Clr Drug Dosing Not Reportable Est GFR ( Amer) 110.1 Est GFR (Non-Af Amer) 95.0 BUN/Creatinine Ratio 25.5 H Glucose 104 H Lactate 0.8 Calcium 8.8 Magnesium 2.0 Total Bilirubin 1.2 H AST 27 ALT 17 Alkaline Phosphatase 54 Troponin I High Sens 8.0 Total Protein 6.8 Albumin 4.5 Globulin 2.3 L Albumin/Globulin Ratio 2.0 Procalcitonin < 0.02 Urine Color Yellow Urine Appearance Clear Urine pH 7.5 Ur Specific Conrad 1.017 Urine Protein Negative Urine Glucose (UA) Negative Urine Ketones Trace H Urine Blood Negative Urine Nitrite Negative Urine Bilirubin Negative Urine Urobilinogen Negative Ur Leukocyte Esterase Negative SARS-CoV-2 (PCR) NEGATIVE Influenza Type A (PCR) Negative Influenza Type B (PCR) Negative RSV (RT-PCR) Negative 05/29/24 05/29/24 05/29/24 14:46 18:05 22:39 WBC RBC Hgb Hct MCV MCH MCHC RDW Std Deviation RDW Coeff of Elisa Plt Count MPV Immature Gran % (Auto) Neut % (Auto) Lymph % (Auto) [place] % (Auto) Eos % (Auto) Baso % (Auto) Neut # (Auto) Lymph # (Auto) [place] # (Auto) Eos # (Auto) Baso # (Auto) Immature Gran # (Auto) PT INR APTT PTT Ratio Sodium 117 L* 117 L* 119 L* Potassium 4.1 Chloride 88 L Carbon Dioxide 24 Anion Gap 5 BUN 13 Creatinine 0.48 L Est Cr Clr Drug Dosing Not Reportable Est GFR ( Amer) 116.5 Est GFR (Non-Af Amer) 100.5 BUN/Creatinine Ratio 27.1 H Glucose 109 H Lactate Calcium 7.9 L Magnesium Total Bilirubin AST ALT Alkaline Phosphatase Troponin I High Sens Total Protein Albumin Globulin Albumin/Globulin Ratio Procalcitonin Urine Color Urine Appearance Urine pH Ur Specific Conrad Urine Protein Urine Glucose (UA) Urine Ketones Urine Blood Urine Nitrite Urine Bilirubin Urine Urobilinogen Ur Leukocyte Esterase SARS-CoV-2 (PCR) Influenza Type A (PCR) Influenza Type B (PCR) RSV (RT-PCR) 05/30/24 01:59 WBC RBC Hgb Hct MCV MCH MCHC RDW Std Deviation RDW Coeff of Elisa Plt Count MPV Immature Gran % (Auto) Neut % (Auto) Lymph % (Auto) [place] % (Auto) Eos % (Auto) Baso % (Auto) Neut # (Auto) Lymph # (Auto) [place] # (Auto) Eos # (Auto) Baso # (Auto) Immature Gran # (Auto) PT INR APTT PTT Ratio Sodium 120 L Potassium Chloride Carbon Dioxide Anion Gap BUN Creatinine Est Cr Clr Drug Dosing Est GFR ( Amer) Est GFR (Non-Af Amer) BUN/Creatinine Ratio Glucose Lactate Calcium Magnesium Total Bilirubin AST ALT Alkaline Phosphatase Troponin I High Sens Total Protein Albumin Globulin Albumin/Globulin Ratio Procalcitonin Urine Color Urine Appearance Urine pH Ur Specific Conrad Urine Protein Urine Glucose (UA) Urine Ketones Urine Blood Urine Nitrite Urine Bilirubin Urine Urobilinogen Ur Leukocyte Esterase SARS-CoV-2 (PCR) Influenza Type A (PCR) Influenza Type B (PCR) RSV (RT-PCR) Diagnostic Findings HEAD CT NONCONTRAST Comparison: None. Findings: A few partially opacified ethmoid air cells. The mastoid air cells are clear. No fluid levels within the paranasal sinuses. The calvarium and skull base are intact. There is no mass, hematoma, midline shift, acute infarct. White matter hypodensity is nonspecific but suggestive of microvascular ischemic change. The ventricles and sulci demonstrate mild age-related involutional changes. Impression: No acute intracranial abnormality. Atrophy and microvascular ischemic changes. XR chest 1V portable FINDINGS: No pneumothorax. No pleural effusions. The heart is normal in size. Mild diffuse interstitial thickening. This may be chronic. No evidence for pulmonary edema. No acute fractures. Patchy left retrocardiac airspace opacities are noted. IMPRESSION: Patchy left retrocardiac airspace opacities. This could represent atelectasis or a mild pneumonitis. PG Care Time/CCT Total # of Minutes Spent Total Time Spent with Patient: Total time spent is greater than 50% in coordination of care (as documented) at patient's floor/unit and/or counseling patient: Coding Level of Care Code 73639 IN/OBS CONSULT LVL 4,60M Diagnoses Hyponatremia E87.1 Nocturia R35.1 Dementia F03.90
[2024-05-30] MEDS: OLANZapine 10 MG/2.1 ML SDV IM STA ×3 (10:36→23:51)
[2024-05-30] MEDS: SERTRALINE HCL 50 MG TABLET PO SCH (10:45)
[2024-05-30 11:41] LABS: Basophils # (auto) 0.02 K/uL (0.00-0.20); Basophils % (auto) 0.3 %; Eosinophils # (auto) 0.01 K/uL (0.00-0.50); Eosinophils % (auto) 0.1 %; Hematocrit (blood only) 35.8 % (42.0-52.0); Hemoglobin 13.2 g/dl (14.0-18.0); Immature Granulocytes % (auto) 1.3 %; Lymphocytes # (auto) 0.71 K/uL (1.20-3.40); Lymphocytes % (auto) 8.9 %; Mean Corpuscular Hemoglobin 32.6 pg (25.0-34.0); Mean Corpuscular Hgb Conc 36.9 g/dL (32.0-36.0); Mean Corpuscular Volume 88.4 fL (80.0-100.0); Monocytes # (auto) 0.71 K/uL (0.11-0.59); Monocytes % (auto) 8.9 %; Neutrophils % (auto) 80.5 %; Platelet Count 250 K/uL (130-400); RDW Coefficient of Variation 12.3 % (11.5-14.5); Red Blood Count 4.05 M/uL (4.70-6.10); White Blood Count 7.95 K/ul (4.8-10.8)
[2024-05-30 11:59] LABS: Albumin Level 4.2 gm/dl (3.4-5.0); Bilirubin,Total 1.2 mg/dl (0.2-1.0); Calcium 8.5 mg/dl (8.6-10.3); Creatinine Clr Calc Pharmacy 77.8 ml/min; Est GFR (African American) 106.3 ml/min; Est GFR (Non-African American) 91.7 ml/min; Globulin 2.1 gm/dl (2.5-4.0); Phosphorus 2.6 mg/dl (2.5-4.9); Potassium 3.4 mmol/L (3.5-5.1); Total Protein 6.3 gm/dl (6.0-8.3)
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
[2024-05-30] MEDS: LORazepam 1 MG in SYRINGE 0.5 ML IV ONE (23:51)
[2024-05-31 05:45] LABS: Appearance Urine Cloudy (Clear); Bilirubin Urine 1+ (Negative); Blood Urine 3+ (Negative); Color Urine Brown; Glucose Urine UA Negative (Negative); Ketones Urine 2+ (Negative); Leukocyte Esterase Urine Negative (Negative); Nitrite Urine Negative (Negative); Protein Urine 2+ (Negative); Specific Gravity Urine >= 1.030 (1.000-1.030); Urobilinogen Urine Negative (Negative)
[2024-05-31 05:52] LABS: Epithelial Cell Urine 0-2 /hpf (0-2); RBC Urine >20 /hpf (0-2)
[2024-05-31 05:53] LABS: Bacteria Urine None Seen (None Seen)
[2024-05-31 07:50] LABS: Albumin Level 4.2 gm/dl (3.4-5.0); Calcium 8.9 mg/dl (8.6-10.3); Potassium 3.9 mmol/L (3.5-5.1)
[2024-05-31 07:56] LABS: BUN Creatinine Ratio 34.4 (10-20); Est GFR (African American) 105.5 ml/min; Est GFR (Non-African American) 91.1 ml/min; Phosphorus 3.5 mg/dl (2.5-4.9)
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
[2024-06-01] MEDS: SODIUM CHLORIDE 0.9% 500 ML IV ONE ×2 (07:30→08:04)
[2024-06-01] MEDS: METOPROLOL TARTRATE 1 MG/ML VIAL IV STA (07:34)
--- NOTE | 2024-06-01 07:35 | Hospitalist Progress Note ---
Date of Service June 01, 2024 Assessment & Plan (1) Acute hyponatremia: (2) Hip arthritis: (3) Gait disturbance: Plan #Acute hyponatremia: - due to desmopressin, currently discontinued - Na improving - nephrology recs appreciated #AFib with RVR - new onset - improved with IVF - will get cardiology input regarding anticoagulation as pt is high risk for complications #Metabolic Encephalopathy - hyponatremia c/b delirium - melatonin nightly - pt has received multiple doses of zyprexa - once pt is more awake, will start low dose seroquel #Urinary retention - likely due to immobility, zyprexa - straight cath prn, avoid wallis due to increased risk of infection and pt pu lling it out #Hip arthritis: Per PCP note taking daily or every other day methylprednisolone for this which has improved his hip and lumbar spine pain Adrenal insufficiency possibility although given clear alternative cause of hyponatremia would only workup for this is sodium does not normalize after discontinuation of desmopressin #Gait disturbance: - Suspected secondary to hyponatremia - PT/OT #Malnutrition #Underweight, BMI < 19 - currently NPO due to poor mentation / 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 No prior hx of AFib Pt still sleeping Physical Exam Physical Exam: Gen: sleepy / drowsy HEENT: cachectic, bitemporal wasting, dry MM CVS: s1s2 nl, irregular / tachycardic Lungs: CTAB anteriorly Abd: soft, nontender, normal bowel sounds Ext: no edema Results & Data Results & Data Vital Signs (Past 12 Hours) Vital Signs Temp Pulse Pulse Resp BP BP Pulse Ox 06/01/24 07:00 36.5 C 153 H 20 121/94 96 06/01/24 04:00 36.8 C 91 H 20 146/83 H 100 06/01/24 01:16 75 05/31/24 22:28 36.6 C 82 18 127/55 L 99 05/31/24 22:26 O2 Del Method 06/01/24 07:00 Room Air 06/01/24 04:00 Room Air 06/01/24 01:16 05/31/24 22:28 Room Air 08/24/24 22:26 Room Air PG Care Time/CCT Total # of Minutes Spent Total Time Spent with Patient: Total time spent is greater than 50% in coordination of care (as documented) at patient's floor/unit and/or counseling patient: Coding Level of Care Code 65056 SUB INP/OBS CARE 2/35MIN Diagnoses Acute hyponatremia E87.1 Hip arthritis M16.10 Gait disturbance R26.9
[2024-06-01 08:17] LABS: Basophils # (auto) 0.02 K/uL (0.00-0.20); Basophils % (auto) 0.2 %; Eosinophils # (auto) 0.03 K/uL (0.00-0.50); Eosinophils % (auto) 0.3 %; Hematocrit (blood only) 36.1 % (42.0-52.0); Hemoglobin 13.1 g/dl (14.0-18.0); Immature Granulocytes # (auto) 0.06 K/uL (0.01-0.20); Immature Granulocytes % (auto) 0.7 %; Lymphocytes # (auto) 0.94 K/uL (1.20-3.40); Lymphocytes % (auto) 10.8 %; Mean Corpuscular Hemoglobin 32.8 pg (25.0-34.0); Mean Corpuscular Hgb Conc 36.3 g/dL (32.0-36.0); Mean Corpuscular Volume 90.3 fL (80.0-100.0); Monocytes # (auto) 0.95 K/uL (0.11-0.59); Monocytes % (auto) 10.9 %; Neutrophils # (auto) 6.68 K/uL (1.40-6.50); Neutrophils % (auto) 77.1 %; Platelet Count 247 K/uL (130-400); RDW Coefficient of Variation 12.9 % (11.5-14.5); RDW Standard Deviation 42.5 fL (36.4-46.3); White Blood Count 8.68 K/ul (4.8-10.8)
[2024-06-01 08:40] LABS: BUN Creatinine Ratio 44.6 (10-20); Calcium 8.7 mg/dl (8.6-10.3); Creatinine Clr Calc Pharmacy 58.7 ml/min; Est GFR (African American) 97.5 ml/min; Est GFR (Non-African American) 84.1 ml/min; Magnesium 2.2 mg/dl (1.7-2.4); Phosphorus 3.2 mg/dl (2.5-4.9); Potassium 3.6 mmol/L (3.5-5.1)
[2024-06-01] MEDS: LACTATED RINGER'S 500 ML IV ONE (09:37)
[2024-06-01] MEDS: SODIUM CHLORIDE 0.9% 1,000 ML IV ONE (10:10)
[2024-06-01] MEDS: D5W AND NSS 1,000 ML IV SCH (11:10)
[2024-06-01] MEDS: MELATONIN 3 MG TAB PO SCH (20:38)
[2024-06-01] MEDS: LORazepam 0.5 MG in SYRINGE 0.25 ML IV STA (22:24)
--- NOTE | 2024-06-01 22:46 | Cardiology Consultation ---
Date of Consultation June 01, 2024 Assessment & Plan (1) Atrial fibrillation with rapid ventricular response: (2) Acute electrocardiogram changes: (3) Acute hyponatremia: Plan Will order ECHO for tomorrow to assess LV size, function and LA size as well as valves. Since he is back in NSR, who hold on AC for now, unless he develops Afib again, who then use SQ Lovenox while in hospital. It was discussed with the family implications of Afib and stroke and that he MAY require NOAC in the future. Will follow on telemetry for now. Would consider LOW dose B payton ie metoprolol succinate 25mg qpm when he is ambulating and we can follow his BPs with activity. Repeat 12 lead ECG to reassess the marked ST changes noted while in Afib as well as check troponin with next routine labs. Given advanced age and recent falls, a more concervative approach would be ASA 81mg daily for now, and a MCOT 30 day monitor to follow Afib burden post discharge. I would like to follow up with him after DC. Thank you for the consultation. Will reassess Sunday after his eCHO is comp leted. History of Present Illness Reason for Consultation: new onset Afib with RVR Requesting Physician: primary PCP Dr. Manzo Attending Physician: Valery Mobley MD History of Present Illness Mr. 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 Most of his history was obtained from his duong and son who were at the bedside. He has had urinary issues and was on Flomax and recently started on desmopressin for nocturia. He developed fairly acute hyponatremia and with this encephalopathy. His sodium at the time of admission was 120 and today is up to 130. According to his on the day of admission he had 5 falls. They are fairly active despite age and have 2-3 outings per week, usually involving some form of exercise. He denies any CP or SOB with their usual activities. He was admitted on 05/30. This am went in to Afib with RVR. There were associated ST-T wave changes while in Afib. Baseline ECG in ER on 05/[address]. He was given IV metoprolol earlier and while doing my eval converted back to NSR on the monitor with PACs Allergies Allergy/AdvReac Type Severity Reaction Status Date / Time No Known Drug Allergies Allergy Verified 05/29/24 14:24 Home Medications Medication Instructions Recorded Confirmed Type calcium citrate 315 mg 1 tab PO 2XWK 10/30/18 05/29/24 History calcium-vitamin D3 6.25 mcg (250 unit) tablet (Citracal + Vitamin D Maximum) diclofenac sodium 1 % topical gel 2 g topical QID 08/23/22 05/29/24 History sertraline 50 mg tablet 75 mg (1.5 x 50 mg) PO DAILY #45 07/25/23 05/29/24 Rx tabs rivastigmine tartrate 3 mg capsule 3 mg PO BID #60 caps 02/21/24 05/29/24 Rx methylprednisolone 4 mg tablet 4 mg PO DAILY #90 tabs 04/29/24 05/29/24 Rx desmopressin 0.2 mg tablet 0.6 mg (3 x 0.2 mg) PO HS #90 tabs 05/21/24 05/29/24 Rx Patient History Medical History Greater trochanteric pain syndrome Sinusitis Impacted cerumen, right ear Right hip pain Poor historian Osteoarthritis Stomach ulcer HX OF ULCER GERD (gastroesophageal reflux disease) Cancer PROSTATE (RADIATION [place]) - 2012 Memory problem FORGETFULL WITH NAMES Surgical History History of cataract surgery History of esophagogastroduodenoscopy (EGD) History of colonoscopy History of herniorrhaphy RIGHT History of tooth extraction Family History Mother Diabetes Uncle Colorectal cancer Aunt Colorectal cancer Father Stroke Denies family history of Ovarian cancer Prostate cancer Myocardial infarction Breast cancer Lung cancer Social History Smoking Status: Never smoker Second Hand Exposure: No; Do You Dip or Chew Tobacco: No; Hx Alcohol Use: Yes Alcohol type: wine Alcohol Intake Frequency: 2-3 x/Week Hx Substance Use: No Preferred Language: Hebrew Communication Ability: Effective Visual Impairment: Limited Hearing Ability: Use of Hearing Aid Electrical Fitter Required: No Beliefs That Will Affect Care: None marital status: Current Living Situation: Spouse current occupational status: retired How many Children do You have: 3 Feels Safe at Home: Yes Safety Concerns: Feels Safe At This Time Childhood Exposure to Second-Hand Smoke: No Diet: regular caffeine: Yes Dental Care, Regularly: Yes Physical Activity Frequency: Daily Physical Activity Frequency Comment: walking Seatbelt Use: always Sunscreen Use: Yes Assistive Devices: Other Review of Systems Review of Systems: All systems reviewed & are unremarkable except as noted in HPI & below history from his -overall she reports that he infrequently sees the docotr and has had very good health Respiratory: as per Subjective / HPI Cardiovascular: as per Subjective / HPI Physical Exam Physical Exam: patient was asleep for most the of the visit. Constitutional: elderly, thin in NAD Neck: no JVD Respiratory: normal respiratory effort, lungs clear to auscultation Cardiovascular: currently HR 80s,systolic murmur at base c/w sclerosis; ? diastolic murmur Gastrointestinal (Abdomen): normal bowel sounds, soft, nontender, no hepatosplenomegaly Skin: multiple bruises on arms, side of face from recent falls Neurologic: somewhat sedated Results & Data Vital Signs (Past 12 Hours) Vital Signs Temp Pulse Pulse Resp BP BP BP 06/01/24 21:01 06/01/24 15:08 37.0 C 80 16 119/53 L 06/01/24 14:33 114 H 22 06/01/24 14:25 109/53 L 06/01/24 14:09 119 H 21 06/01/24 14:00 124 H 21 06/01/24 14:00 102/64 06/01/24 14:00 102/64 06/01/24 14:00 102/64 06/01/24 13:33 123 H 19 06/01/24 13:24 111 H 18 06/01/24 13:02 102/51 L 06/01/24 13:02 102/51 L 06/01/24 13:00 105 H 06/01/24 12:54 105 H 16 06/01/24 12:30 117 H 14 06/01/24 12:09 106 H 13 06/01/24 11:30 102 H 12 06/01/24 11:00 105 H 12 06/01/24 11:00 124/73 06/01/24 11:00 124/73 06/01/24 11:00 124/73 06/01/24 10:49 120/58 L 06/01/24 10:49 36.8 C 102 H 20 120/58 L 06/01/24 10:48 90 13 Pulse Ox O2 Del Method 06/01/24 21:01 Room Air 06/01/24 15:08 96 Room Air 06/01/24 14:33 06/01/24 14:25 06/01/24 14:09 06/01/24 14:00 06/01/24 14:00 06/01/24 14:00 06/01/24 14:00 06/01/24 13:33 06/01/24 13:24 06/01/24 13:02 06/01/24 13:02 06/01/24 13:00 06/01/24 12:54 06/01/24 12:30 06/01/24 12:09 06/01/24 11:30 06/01/24 11:00 97 06/01/24 11:00 06/01/24 11:00 06/01/24 11:00 06/01/24 10:49 06/01/24 10:49 99 Room Air 06/01/24 10:48 Laboratory Results Abnormal lab results 06/01/24 Range/Units 07:56 RBC 4.00 L (4.70-6.10) M/uL Hgb 13.1 L (14.0-18.0) g/dl Hct 36.1 L (42.0-52.0) % MCHC 36.3 H (32.0-36.0) g/dL MPV 9.0 L (9.4-12.4) fL Neut # (Auto) 6.68 H (1.40-6.50) K/uL Lymph # (Auto) 0.94 L (1.20-3.40) K/uL [place] # (Auto) 0.95 H (0.11-0.59) K/uL Sodium 130 L (136-145) mmol/L BUN 33 H (6-23) mg/dl BUN/Creatinine Ratio 44.6 H (10-20) Enoxaparin Sodium (Enoxaparin Inj 40 Mg/0.4 Ml Syr) 40 mg SQ QPM CONSTANZA Stop: 06/28/24 20:59 Last Admin: 08/25/24 20:38 Dose: 40 mg Documented By: Admin: 05/31/24 20:25 Dose: 40 mg Documented By: Admin: 05/30/24 20:40 Dose: 40 mg Documented By: Admin: 05/29/24 21:26 Dose: 40 mg Documented By: LEVI Dextrose/Sodium Chloride (D5w And Nss) 1,000 mls @ 125 mls/hr IV .Q8H CONSTANZA Stop: 07/01/24 10:14 Last Admin: 06/01/24 19:01 Dose: 125 mls/hr Documented By: Infusion: 06/01/24 19:01 Dose: Infused Documented By: Admin: 06/01/24 11:10 Dose: 125 mls/hr Documented By: MARIELA Melatonin (Melatonin 3 Mg Tab) 6 mg PO HS CONSTANZA Stop: 07/01/24 20:59 Last Admin: 06/01/24 20:38 Dose: 6 mg Documented By: DANIELLA Rivastigmine Tartrate (Rivastigmine Tartrate 1.5 Mg Cap) 3 mg PO BID CONSTANZA Stop: 06/28/24 20:59 Last Admin: 06/01/24 20:38 Dose: 3 mg Documented By: Admin: 06/01/24 08:24 Dose: Not Given Documented By: Admin: 05/31/24 20:25 Dose: 3 mg Documented By: Admin: 05/31/24 09:37 Dose: Not Given Documented By: Admin: 05/30/24 20:33 Dose: Not Given Documented By: Admin: 05/30/24 10:44 Dose: Not Given Documented By: Admin: 05/29/24 21:26 Dose: 3 mg Documented By: LEVI Sertraline HCl (Sertraline Hcl 50 Mg Tablet) 75 mg PO DAILY CONSTANZA Stop: 06/29/24 08:59 Last Admin: 06/01/24 08:25 Dose: Not Given Documented By: Admin: 05/31/24 09:38 Dose: Not Given Documented By: Admin: 05/30/24 10:45 Dose: Not Given Documented By: NISHA Diagnostic Findings ECHO ordered for tomorrow am ECG Additional Comments: as noted above
[2024-06-02] MEDS: METOPROLOL TARTRATE 1 MG/ML VIAL IV STA (05:55)
[2024-06-02 06:59] LABS: Basophils # (auto) 0.04 K/uL (0.00-0.20); Basophils % (auto) 0.4 %; Eosinophils # (auto) 0.02 K/uL (0.00-0.50); Eosinophils % (auto) 0.2 %; Hematocrit (blood only) 33.8 % (42.0-52.0); Hemoglobin 12.1 g/dl (14.0-18.0); Immature Granulocytes # (auto) 0.14 K/uL (0.01-0.20); Immature Granulocytes % (auto) 1.3 %; Lymphocytes # (auto) 0.77 K/uL (1.20-3.40); Lymphocytes % (auto) 6.9 %; Mean Corpuscular Hemoglobin 32.4 pg (25.0-34.0); Mean Corpuscular Hgb Conc 35.8 g/dL (32.0-36.0); Mean Corpuscular Volume 90.6 fL (80.0-100.0); Monocytes % (auto) 6.3 %; Neutrophils # (auto) 9.46 K/uL (1.40-6.50); Neutrophils % (auto) 84.9 %; Platelet Count 265 K/uL (130-400); RDW Coefficient of Variation 12.7 % (11.5-14.5); RDW Standard Deviation 41.7 fL (36.4-46.3); Red Blood Count 3.73 M/uL (4.70-6.10); White Blood Count 11.13 K/ul (4.8-10.8)
[2024-06-02 07:20] LABS: BUN Creatinine Ratio 39.7 (10-20); Calcium 8.1 mg/dl (8.6-10.3); Creatinine Clr Calc Pharmacy 74.9 ml/min; Est GFR (African American) 107.8 ml/min; Magnesium 1.8 mg/dl (1.7-2.4); Phosphorus 1.7 mg/dl (2.5-4.9); Potassium 3.5 mmol/L (3.5-5.1)
--- NOTE | 2024-06-02 08:04 | Hospitalist Progress Note ---
Date of Service June 02, 2024 Assessment & Plan (1) Acute hyponatremia: (2) Hip arthritis: (3) Gait disturbance: Plan #AFib with RVR #Elevated troponin - new onset (06/01/24) - Cardiology recs appreciated: ECHO , started on therapeutic Lovenox and low dose metoprolol, aspirin 81mg for now, MCOT 30 day monitor on discharge, f/u with cards after discharge - cont IVF - cont to trend trop, suspect demand #Metabolic Encephalopathy - melatonin nightly - pt has received multiple doses of zyprexa initially - started on seroquel nightly #Urinary retention #UTI - suspect due to straight cath - likely due to immobility, zyprexa - wallis placed - CTX started Day 1 /TBD - UCx pending #Acute hyponatremia: Resolved - due to desmopressin, currently discontinued - Na improving - nephrology recs appreciated #Hip arthritis: Per PCP note taking daily or every other day methylprednisolone for this which has improved his hip and lumbar spine pain Adrenal insufficiency possibility although given clear alternative cause of hyponatremia would only workup for this is sodium does not normalize after discontinuation of desmopressin #Gait disturbance: - Suspected secondary to hyponatremia - PT/OT #Malnutrition #Underweight, BMI < 19 #Aspiration risk - currently NPO due to poor mentation / aspiration risk - 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 Additionally, he went back into AFib with RVR this AM Review of Systems Review of Systems: Unable to do ROS due to mental status Physical Exam Physical Exam: Gen: sleepy / drowsy HEENT: cachectic, bitemporal wasting, dry MM CVS: s1s2 nl, RRR Lungs: CTAB anteriorly Abd: soft, nontender, normal bowel sounds Ext: no edema Psych: agitated when awake Results & Data Results & Data Vital Signs (Past 12 Hours) Vital Signs Temp Pulse Pulse Resp BP BP BP 06/02/24 07:59 36.9 C 78 19 125/61 06/02/24 06:21 89 122/63 06/02/24 05:55 140 H 06/02/24 03:55 36.8 C 107 H 18 186/68 H 06/01/24 23:51 36.8 C 80 18 130/62 06/01/24 23:08 70 06/01/24 21:01 Pulse Ox O2 Del Method 06/02/24 07:59 95 Room Air 06/02/24 06:21 06/02/24 05:55 06/02/24 03:55 92 Room Air 06/01/24 23:51 99 Room Air 06/01/24 23:08 06/01/24 21:01 Room Air PG Care Time/CCT Total # of Minutes Spent Total Time Spent with Patient: Total time spent is greater than 50% in coordination of care (as documented) at patient's floor/unit and/or counseling patient: Coding Level of Care Code 00039 SUB INP/OBS CARE 2/35MIN Diagnoses Acute hyponatremia E87.1 Hip arthritis M16.10 Gait disturbance R26.9
--- NOTE | 2024-06-02 09:01 | Cardiology Progress Note ---
Date of Service June 02, 2024 Assessment & Plan (1) Atrial fibrillation with rapid ventricular response: Plan Echo performed today unchanged since 2011. He will start metoprolol if ok to take po to help control his rate and rhythm. For now given his inconsistent po intake, will order Lovenox but he can be switched to low dose Eliquis when appropriate. We can arrange for an MCOT after discharge to assess afib burden outpatient. Admission and Anticipated Discharge Date Admission Date: May 29, 2024 Subjective Mr. Ibanez is disoriented and unable to provide history. He denies sob or chest pain. He did have an episode of afib rvr on the monitor around 5:30a but is now back in SR. Review of Systems Review of Systems: All systems reviewed & are unremarkable except as noted in HPI & below (unable to give much history ) Physical Exam Constitutional: WD/WN, vitals as above Respiratory: normal respiratory effort, lungs clear to auscultation Cardiovascular: RRR, no murmur, no edema Skin: no rashes, warm and dry Neurologic: + confused Psychiatric: Orientation: alert and oriented to person Results & Data Vital Signs (Past 12 Hours) Vital Signs Temp Pulse Pulse Resp BP BP BP 06/02/24 07:59 36.9 C 78 19 125/61 06/02/24 06:21 89 122/63 06/02/24 05:55 140 H 06/02/24 03:55 36.8 C 107 H 18 186/68 H 06/01/24 23:51 36.8 C 80 18 130/62 06/01/24 23:08 70 06/01/24 21:01 Pulse Ox O2 Del Method 06/02/24 07:59 95 Room Air 06/02/24 06:21 06/02/24 05:55 06/02/24 03:55 92 Room Air 06/01/24 23:51 99 Room Air 06/01/24 23:08 06/01/24 21:01 Room Air
[2024-06-02] MEDS ORDERED: ENOXAPARIN 1 MG/KG SQ SCH (09:30)
[2024-06-02] MEDS: METOPROLOL SUCC 25MG EXT REL TAB PO SCH (10:14)
[2024-06-02] MEDS: ENOXAPARIN INJ 60 MG/0.6 ML SYR SQ SCH (10:16)
[2024-06-02 11:22] LABS: Appearance Urine Cloudy (Clear); Bacteria Urine Automated 4+ (None Seen); Bilirubin Urine Negative (Negative); Blood Urine 3+ (Negative); Cast Urine Automated 0-2 /lpf (0-2); Color Urine Orange; Epithelial Cell Urine Auto 0-2 /hpf (0-2); Glucose Urine UA Negative (Negative); Ketones Urine 1+ (Negative); Leukocyte Esterase Urine 1+ (Negative); Nitrite Urine Negative (Negative); Protein Urine 1+ (Negative); RBC Urine Automated >20 /hpf (0-2); Specific Gravity Urine 1.017 (1.000-1.030); Urobilinogen Urine Negative (Negative); WBC Urine Automated 0-5 /hpf (0-5); pH Urine 5.5 (4.5-7.5)
[2024-06-02] MEDS: LIDOCAINE 2% JELLY 5 ML TUBE EXT ONE (11:52)
[2024-06-02] MEDS: cefTRIAXone SODIUM 1,000 MG/50 ML BAG IV SCH (12:36)
[2024-06-02] MEDS: QUEtiapine FUMARATE 25 MG TABLET PO SCH ×2 (13:00→20:49)
--- NOTE | 2024-06-02 15:04 | XCELERA ---
[id number]
--- NOTE | 2024-06-03 05:47 | Electrocardiogram Report ---
Test Reason : Blood Pressure : */* mmHG Vent. Rate : 77 BPM Atrial Rate : 77 BPM P-R Int : 122 ms QRS Dur : 70 ms QT Int : 388 ms P-R-T Axes : 73 -61 10 degrees QTcB Int : 439 ms Poor data quality, interpretation may be adversely affected Normal sinus rhythm Left axis deviation Nonspecific ST and T wave abnormality Abnormal ECG When compared with ECG of 01-Jun-2024 07:21, Sinus rhythm has replaced Vent. rate has decreased by 71 bpm Confirmed by Jordy Alba ([id number]) on 06/03/2024 5:46:59 AM Referred By: REFERRED SELF Confirmed By: Jordy Alba
--- NOTE | 2024-06-03 08:17 | Hospitalist Progress Note ---
Date of Service June 03, 2024 Assessment & Plan (1) Metabolic encephalopathy: Plan: presented with weakness and falls found to have hyponatremia and enterococcal uti poa, catheter associated as pt has required st cath's switch to ampicillin melatonin nightly - pt has received multiple doses of Zyprexa initially - started on Seroquel nightly PT/OT eval (2) Acute hyponatremia: Plan: Resolved - due to desmopressin, currently discontinued - Na improving - nephrology recs appreciated (3) Atrial fibrillation with rapid ventricular response: Plan: Elevated troponin from demand ischemia - new onset (06/01/24) - Cardiology recs appreciated: ECHO unchanged from past , started on therapeutic Lovenox and low dose metoprolol, aspirin 81mg for now, MCOT 30 day monitor on discharge, f/u with cards after discharge Plan Malnutrition Bedside swallow 06/02, Puree diet, aspiration precautions, alternate solids and liquids Underweight, BMI < 19 DVT ppx - Lovenox subq Admission and Anticipated Discharge Date Admission Date: May 29, 2024 Subjective pt accompanied by caregiver, encephalopathy is clearing no longer in need of restraints is oriented to self only Physical Exam Physical Exam: awake and oriented cardiac is regular lungs are clear but diminished Results & Data Results & Data Vital Signs (Past 12 Hours) Vital Signs Temp Pulse Pulse Resp BP Pulse Ox O2 Del Method 06/03/24 07:30 98.1 F 69 17 149/59 H 99 Room Air 06/03/24 04:00 98.2 F 73 17 137/64 98 Room Air 06/02/24 22:49 101 H 06/02/24 22:34 98.2 F 92 H 19 106/79 95 Room Air 06/02/24 21:15 Room Air Laboratory Results reviewed chemistry, augmented potassium PG Care Time/CCT Total # of Minutes Spent Total Time Spent with Patient: Total time spent is greater than 50% in coordination of care (as documented) at patient's floor/unit and/or counseling patient: Coding Level of Care Code 78812 SUB INP/OBS CARE 2/35MIN Diagnoses Metabolic encephalopathy G93.41 Acute hyponatremia E87.1 Atrial fibrillation with rapid ventricular response I48.91
[2024-06-03 09:07] LABS: BUN Creatinine Ratio 33.3 (10-20); Calcium 7.4 mg/dl (8.6-10.3); Creatinine Clr Calc Pharmacy 128.6 ml/min; Est GFR (African American) 131.1 ml/min; Est GFR (Non-African American) 113.1 ml/min; Magnesium 1.7 mg/dl (1.7-2.4); Potassium 2.7 mmol/L (3.5-5.1); Troponin I High Sensitivity 38.2 pg/ml (0-20)
[2024-06-03] MEDS: AMPICILLIN 2,000 MG in SODIUM CHLOR 0.9% MINI-B 100 ML IV SCH (15:40)
[2024-06-03] MEDS: POTASSIUM CHLORIDE / WTR 10 MEQ/100 ML PLCT IV SCH (18:03)
[2024-06-03] MEDS: MAGNESIUM SULFATE / D5W 1 GM/100 ML BAG IV ONE (18:07)
[2024-06-03] MEDS: POTASSIUM CHLORIDE CRTAB 20 MEQ TABCR PO SCH (20:17)
[2024-06-04 07:46] LABS: BUN Creatinine Ratio 17.1 (10-20); Calcium 7.4 mg/dl (8.6-10.3); Creatinine Clr Calc Pharmacy 120.2 ml/min; Est GFR (African American) 124.3 ml/min; Est GFR (Non-African American) 107.2 ml/min; Magnesium 1.7 mg/dl (1.7-2.4); Potassium 3.2 mmol/L (3.5-5.1)
[2024-06-04] MEDS: POTASSIUM CHLORIDE / WTR 10 MEQ/100 ML PLCT IV SCH (09:22)
[2024-06-04] MEDS: MAGNESIUM SULFATE / D5W 1 GM/100 ML BAG IV ONE (09:22)
--- NOTE | 2024-06-04 15:41 | Electrocardiogram Report ---
Test Reason : Blood Pressure : */* mmHG Vent. Rate : 148 BPM Atrial Rate : 178 BPM P-R Int : * ms QRS Dur : 86 ms QT Int : 310 ms P-R-T Axes : * 37 77 degrees QTcB Int : 486 ms Atrial fibrillation with rapid ventricular response Low voltage QRS ST depression, consider subendocardial injury Abnormal ECG When compared with ECG of 29-May-2024 12:59, Significant changes have occurred Confirmed by Rosa Bearden (Yulia) on 06/01/2024 7:06:27 PM Referred By: REFERRED SELF Confirmed By: Rosa Bearden
--- NOTE | 2024-06-04 19:15 | Cardiology Progress Note ---
Date of Service June 04, 2024 Assessment & Plan (1) Atrial fibrillation with rapid ventricular response: (2) Dementia: (3) Acute electrocardiogram changes: (4) Metabolic encephalopathy: Plan cont low dose BB for Afib prevention. I am reluctant to start NOAC given current mental status issues plan on doing outpatient monitoring for surveillence. Consider NOAC if/when returns to his baseline. Admission and Anticipated Discharge Date Admission Date: May 29, 2024 Subjective no new changes swore at RN early this am asleep currently no further Afib on monitor Review of Systems Review of Systems: Unobtainable due to mental health condition Respiratory: as per Subjective / HPI Cardiovascular: as per Subjective / HPI Physical Exam Physical Exam: patient was asleep for most the of the visit. Respiratory: normal respiratory effort, lungs clear to auscultation Gastrointestinal (Abdomen): normal bowel sounds, soft, nontender, no hepatosplenomegaly Results & Data Vital Signs (Past 12 Hours) Vital Signs Temp Pulse Pulse Resp BP Pulse Ox O2 Del Method 06/04/24 17:33 37.2 C 88 19 158/56 H 93 Room Air 06/04/24 13:00 75 06/04/24 10:37 36.8 C 94 H 19 150/68 H 94 Room Air 06/04/24 08:00 Room Air 06/04/24 08:00 71 06/04/24 07:55 36.8 C 65 18 151/67 H 97 Room Air Laboratory Results Abnormal lab results 06/04/24 Range/Units 06:55 Sodium 135 L (136-145) mmol/L Potassium 3.2 L (3.5-5.1) mmol/L Creatinine 0.41 L (0.6-1.4) mg/dl Glucose 140 H (70-99(Fasting)) mg/dl Calcium 7.4 L (8.6-10.3) mg/dl
--- NOTE | 2024-06-04 19:43 | Hospitalist Progress Note ---
Date of Service June 04, 2024 Assessment & Plan (1) Metabolic encephalopathy: Plan: presented with weakness and falls found to have hyponatremia and enterococcal uti poa, catheter associated as pt has required st cath's switch to ampicillin complete one week course melatonin nightly - pt has received multiple doses of Zyprexa initially - started on Seroquel nightly PT/OT eval 6 clicks score is 10 (2) Acute hyponatremia: Plan: Resolved - due to desmopressin, currently discontinued - Na improving - nephrology recs appreciated (3) Atrial fibrillation with rapid ventricular response: Plan: Elevated troponin from demand ischemia - new onset (06/01/24) - Cardiology recs appreciated: ECHO unchanged from past , started on therapeutic Lovenox and low dose metoprolol, aspirin 81mg for now, MCOT 30 day monitor on discharge, f/u with cards after discharge Plan Malnutrition Bedside swallow 06/02, Puree diet, aspiration precautions, alternate solids and liquids Underweight, BMI < 19 DVT ppx - Lovenox subq Admission and Anticipated Discharge Date Admission Date: May 29, 2024 Subjective pt is more awake and oriented x 2 eating better getting more strength Physical Exam Physical Exam: awake and orientedx2 cardiac is regular lungs are clear but diminished Results & Data Results & Data Vital Signs (Past 12 Hours) Vital Signs Temp Pulse Pulse Resp BP Pulse Ox O2 Del Method 06/04/24 17:33 99.0 F 88 19 158/56 H 93 Room Air 06/04/24 13:00 75 06/04/24 10:37 98.2 F 94 H 19 150/68 H 94 Room Air 06/04/24 08:00 Room Air 06/04/24 08:00 71 06/04/24 07:55 98.2 F 65 18 151/67 H 97 Room Air Laboratory Results reviewed chemistry augmented hypokalemia PG Care Time/CCT Total # of Minutes Spent Total Time Spent with Patient: Total time spent is greater than 50% in coordination of care (as documented) at patient's floor/unit and/or counseling patient: Coding Level of Care Code 72963 SUB INP/OBS CARE 2/35MIN Diagnoses Metabolic encephalopathy G93.41 Acute hyponatremia E87.1 Atrial fibrillation with rapid ventricular response I48.91
--- NOTE | 2024-06-05 10:15 | Cardiology Progress Note ---
Date of Service June 05, 2024 Assessment & Plan (1) Atrial fibrillation with rapid ventricular response: (2) Acute electrocardiogram changes: (3) Metabolic encephalopathy: Plan cont low dose BB for Afib prevention. I am reluctant to start NOAC given current mental status issues plan on doing outpatient monitoring for surveillence. Consider NOAC if/when returns to his baseline. Will sign off for now-please call if any other questions or issues. Will follow up post DC Admission and Anticipated Discharge Date Admission Date: May 29, 2024 Subjective without new complaints no further Afib on monitor Review of Systems Review of Systems: Unobtainable due to cognitive status Respiratory: as per Subjective / HPI Cardiovascular: as per Subjective / HPI Physical Exam Physical Exam: awake Respiratory: normal respiratory effort, lungs clear to auscultation Gastrointestinal (Abdomen): normal bowel sounds, soft, nontender, no hepatosplenomegaly Results & Data Vital Signs (Past 12 Hours) Vital Signs Temp Pulse Resp BP Pulse Ox O2 Del Method 06/05/24 08:20 36.8 C 73 16 132/69 98 Room Air 06/04/24 23:30 Room Air
[2024-06-05] MEDS ORDERED: HALOPERIDOL LACTATE 5 MG/ML 1 ML VIAL IV PRN (12:27)
[2024-06-05 13:16] LABS: Hemoglobin 10.9 g/dl (14.0-18.0); Mean Corpuscular Hemoglobin 32.8 pg (25.0-34.0); Mean Corpuscular Hgb Conc 36.3 g/dL (32.0-36.0); Mean Corpuscular Volume 90.4 fL (80.0-100.0); Platelet Count 236 K/uL (130-400); RDW Coefficient of Variation 12.4 % (11.5-14.5); RDW Standard Deviation 41.2 fL (36.4-46.3); Red Blood Count 3.32 M/uL (4.70-6.10); White Blood Count 8.23 K/ul (4.8-10.8)
[2024-06-05 13:30] LABS: Albumin Globulin Ratio 1.5 (0.9-2); Albumin Level 3.4 gm/dl (3.4-5.0); BUN Creatinine Ratio 21.3 (10-20); Bilirubin,Total 0.8 mg/dl (0.2-1.0); Calcium 8.3 mg/dl (8.6-10.3); Est GFR (African American) 117.5 ml/min; Est GFR (Non-African American) 101.4 ml/min; Globulin 2.2 gm/dl (2.5-4.0); Potassium 3.6 mmol/L (3.5-5.1); Total Protein 5.6 gm/dl (6.0-8.3)
--- NOTE | 2024-06-05 17:10 | Hospitalist Progress Note ---
Date of Service June 05, 2024 Assessment & Plan (1) Metabolic encephalopathy: Plan: presented with weakness and falls metabolic encephalopathy found to have hyponatremia and enterococcal uti poa, catheter associated as pt has required st cath's switch to ampicillin complete one week course with worsened in hospital delirium, check head CT hyponatremia presists fluid restrict po melatonin nightly - prn haldol avialable -increased to seroquel bid, takes eXceleon PT/OT eval 6 clicks score is 10, should not go home may need rehab (2) Acute hyponatremia: Plan: Resolved - due to desmopressin, currently discontinued -fluid restriction - nephrology recs appreciated (3) Atrial fibrillation with rapid ventricular response: Plan: Elevated troponin from demand ischemia - new onset (06/01/24) - Cardiology recs appreciated: ECHO unchanged from past , started on therapeutic Lovenox and low dose metoprolol, aspirin 81mg for now, MCOT 30 day monitor on discharge, f/u with cards after discharge Plan Malnutrition Bedside swallow 06/02, Puree diet, aspiration precautions, alternate solids and liquids Underweight, BMI < 19 DVT ppx - Lovenox subq Admission and Anticipated Discharge Date Admission Date: May 29, 2024 Subjective pt has had dramatic decline after improving for 2 days pt does have baseline behavioral disturbances and take eXcelon at home updated at bedside, did require sedation due to agitation Physical Exam Physical Exam: awake more confused cardiac is regular, no afib lungs are clear abd is soft and non tender Results & Data Results & Data Vital Signs (Past 12 Hours) Vital Signs Temp Pulse Pulse Pulse Resp BP Pulse Ox 06/05/24 15:15 97.9 F 79 20 131/63 97 06/05/24 13:05 73 06/05/24 10:39 98.2 F 103 H 21 186/83 H 93 06/05/24 08:20 98.2 F 73 16 132/69 98 06/05/24 08:00 06/05/24 08:00 68 O2 Del Method 06/05/24 15:15 Room Air 06/05/24 13:05 06/05/24 10:39 Room Air 06/05/24 08:20 Room Air 06/05/24 08:00 Room Air 06/05/24 08:00 Laboratory Results review cbc review chemistry PG Care Time/CCT Total # of Minutes Spent Total Time Spent with Patient: Total time spent is greater than 50% in coordination of care (as documented) at patient's floor/unit and/or counseling patient: Coding Level of Care Code 20882 SUB INP/OBS CARE 350MIN Diagnoses Metabolic encephalopathy G93.41 Acute hyponatremia E87.1 Atrial fibrillation with rapid ventricular response I48.91
[2024-06-05] MEDS: LORazepam 2 MG/1 ML VIAL IV SCH (17:30)
--- NOTE | 2024-06-05 18:08 | CT Scan Report ---
CT OF THE HEAD WITHOUT CONTRAST CLINICAL HISTORY: acute confusion COMPARISON STUDY: Head CT May. CT DOSE: 1406.31 mGy.cm TECHNIQUE: Helical axial images of the head were obtained without IV contrast. Automated exposure con trol was utilized for the study. A dose lowering technique was utilized adhering to the principles o f ALARA. FINDINGS: No acute intracranial hemorrhage, midline shift or mass effect is present. There is moderat e dilatation of the lateral and third ventricles. White matter hypodensity suggests small vessel dise ase. The basal cisterns are patent. No extra-axial collections are present. There are no findings to suggest acute dural sinus thrombosis or acute territorial infarct. No significant calvarial abnormali ties are present. Visualized portions of the sinuses and mastoid air cells are clear. IMPRESSION: 1. No acute intracranial hemorrhage. 2. Moderate dilatation of the lateral and third ventricles, slightly out of proportion to sulcal enla rgement. This is likely due to atrophy although normal pressure hydrocephalus could appear similar. ACT 112: Negative or not required by law. Electronically signed by: Jerome Spence M.D. 06/05/2024 6:06 PM
[2024-06-05] MEDS: QUEtiapine FUMARATE 25 MG TABLET PO SCH (20:58)
--- NOTE | 2024-06-06 07:27 | Hospitalist Progress Note ---
Date of Service June 06, 2024 Assessment & Plan (1) Metabolic encephalopathy: (2) Acute hyponatremia: (3) Atrial fibrillation with rapid ventricular response: Plan #AFib with RVR - resolved #Elevated troponin - new onset (06/01/24) - Cardiology recs appreciated: ECHO unremarkable, started on therapeutic Lovenox and low dose metoprolol, aspirin 81mg for now, MCOT 30 day monitor on discharge, f/u with cards after discharge - cont to trend trop, suspect demand #Metabolic Encephalopathy - combination of hyponatremia, UTI - CT head without any acute ischemic changes, ?NPH - melatonin nightly - pt has received multiple doses of zyprexa initially - seroquel increased to BID #Urinary retention #UTI - UCx growing enterococcus, currently on Ampicillin, last dose on 06/09 - likely due to immobility, zyprexa, straight caths - wallis placed #Acute hyponatremia: Resolved - due to desmopressin, currently discontinued - Na improving - nephrology recs appreciated #Hip arthritis: Per PCP note taking daily or every other day methylprednisolone for this which has improved his hip and lumbar spine pain Adrenal insufficiency possibility although given clear alternative cause of hyponatremia would only workup for this is sodium does not normalize after discontinuation of desmopressin #Gait disturbance: - PT/OT recs rehab #Malnutrition #Underweight, BMI < 19 #Aspiration risk - bedside swallow 06/02: puree diet, aspiration precautions, alternate solids and liquids - 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 Admission and Anticipated Discharge Date Admission Date: May 29, 2024 Subjective No acute overnight events Currently looking much improved, no new complaints Review of Systems Review of Systems: Complaining about wallis Physical Exam Physical Exam: Gen: awake and alert, no acute distress HEENT: cachectic, bitemporal wasting, MMM CVS: s1s2 nl, RRR Lungs: CTAB Abd: soft, nontender, normal bowel sounds : + wallis Ext: no edema Psych: agitated when awake Results & Data Results & Data Vital Signs (Past 12 Hours) Vital Signs Pulse O2 Del Method 06/06/24 06:46 73 06/05/24 22:46 77 06/05/24 22:23 Room Air PG Care Time/CCT Total # of Minutes Spent Total Time Spent with Patient: Total time spent is greater than 50% in coordination of care (as documented) at patient's floor/unit and/or counseling patient: Coding Level of Care Code 34310 SUB INP/OBS CARE 2/35MIN Diagnoses Metabolic encephalopathy G93.41 Acute hyponatremia E87.1 Atrial fibrillation with rapid ventricular response I48.91
[2024-06-06] MEDS: TAMSULOSIN HCL 0.4 MG CAP PO ONE (12:36)
[2024-06-06] MEDS: TAMSULOSIN HCL 0.4 MG CAP PO SCH (19:55)
[2024-06-07 07:17] LABS: BUN Creatinine Ratio 33.9 (10-20); Calcium 7.9 mg/dl (8.6-10.3); Est GFR (Non-African American) 92.3 ml/min; Magnesium 1.9 mg/dl (1.7-2.4); Phosphorus 3.5 mg/dl (2.5-4.9); Potassium 4.1 mmol/L (3.5-5.1)
--- NOTE | 2024-06-07 08:04 | Hospitalist Progress Note ---
Date of Service June 07, 2024 Assessment & Plan (1) Metabolic encephalopathy: (2) Acute hyponatremia: (3) Atrial fibrillation with rapid ventricular response: Plan #AFib with RVR - resolved #Elevated troponin - new onset (06/01/24) - Cardiology recs appreciated: ECHO unremarkable, on low dose metoprolol, aspirin 81mg for now, MCOT 30 day monitor on discharge, f/u with cards after discharge - pt is also on therapeutic lovenox, but per discussion with cardiology, high risk for complications with initiation of DOAC on discharge, thus will not AC on discharge, further decision to be made once evaluated in cards office - cont to trend trop, suspect demand #Metabolic Encephalopathy - combination of hyponatremia, UTI - CT head without any acute ischemic changes, ?NPH - melatonin nightly - pt has received multiple doses of zyprexa initially, currently on seroquel BID #Urinary retention #UTI - UCx growing enterococcus, currently on Ampicillin, last dose on 06/09 - likely due to immobility, zyprexa, straight caths - pt not urinating, will straight cath x1, if still retains, will replace wallis and voiding trial to be done at rehab - cont flomax #Acute hyponatremia: Resolved - due to desmopressin, currently discontinued - Na improving - nephrology recs appreciated #Hip arthritis: Per PCP note taking daily or every other day methylprednisolone for this which has improved his hip and lumbar spine pain Adrenal insufficiency possibility although given clear alternative cause of hyponatremia would only workup for this is sodium does not normalize after discontinuation of desmopressin #Gait disturbance: - PT/OT recs rehab #Malnutrition #Underweight, BMI < 19 #Aspiration risk - bedside swallow 06/02: puree diet, aspiration precautions, alternate solids and liquids - 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 Admission and Anticipated Discharge Date Admission Date: May 29, 2024 Subjective No acute overnight events Currently looking much improved, no new complaints Pt started having urinary retention. Review of Systems Review of Systems: Complaining about wallis Physical Exam Physical Exam: Gen: awake and alert, no acute distress HEENT: cachectic, bitemporal wasting, MMM CVS: s1s2 nl, RRR Lungs: CTAB Abd: soft, nontender, normal bowel sounds : no wallis Ext: no edema Psych: agitated when awake Results & Data Results & Data Vital Signs (Past 12 Hours) Vital Signs Temp Pulse Pulse Resp BP Pulse Ox O2 Del Method 06/07/24 07:03 36.5 C 74 18 129/61 94 Room Air 06/06/24 23:26 73 PG Care Time/CCT Total # of Minutes Spent Total Time Spent with Patient: Total time spent is greater than 50% in coordination of care (as documented) at patient's floor/unit and/or counseling patient: Coding Level of Care Code 08179 SUB INP/OBS CARE 2/35MIN Diagnoses Metabolic encephalopathy G93.41 Acute hyponatremia E87.1 Atrial fibrillation with rapid ventricular response I48.91
[2024-06-07] MEDS: LIDOCAINE 2% JELLY 5 ML TUBE EXT ONE (18:23)
[2024-06-08] MEDS: ERYTHROMYCIN OP OINT 5 MG/GM 3.5 GM TUBE OP SCH (00:12)
--- NOTE | 2024-06-08 07:55 | Hospitalist Progress Note ---
Date of Service June 08, 2024 Assessment & Plan (1) Metabolic encephalopathy: (2) Acute hyponatremia: (3) Atrial fibrillation with rapid ventricular response: Plan #AFib with RVR - resolved #Elevated troponin - new onset (06/01/24) - Cardiology recs appreciated: ECHO unremarkable, on low dose metoprolol, aspirin 81mg for now, MCOT 30 day monitor on discharge, f/u with cards after discharge - pt is also on therapeutic lovenox, but per discussion with cardiology, high risk for complications with initiation of DOAC on discharge, thus will not AC on discharge, further decision to be made once evaluated in cards office - cont to trend trop, suspect demand #Metabolic Encephalopathy - combination of hyponatremia, UTI - CT head without any acute ischemic changes, ?NPH - melatonin nightly - pt has received multiple doses of zyprexa initially, currently on seroquel BID, increased night time dose to 50mg, maintain AM dose at 25mg, prn seroquel 25mg ordered for additional support #Urinary retention #UTI - UCx growing enterococcus, currently on Ampicillin, last dose on 06/09 - likely due to immobility, zyprexa, straight caths - wallis replaced - cont flomax #Acute hyponatremia: Resolved - due to desmopressin, currently discontinued - Na trended down slightly, he is on fluid restriction. trend at this time - nephrology recs appreciated #Hip arthritis: Per PCP note taking daily or every other day methylprednisolone for this which has improved his hip and lumbar spine pain Adrenal insufficiency possibility although given clear alternative cause of hyponatremia would only workup for this is sodium does not normalize after discontinuation of desmopressin #Gait disturbance: - PT/OT recs rehab, however wants to take pt home - CM consulted to assist with d/c planning #Malnutrition #Underweight, BMI < 19 #Aspiration risk - bedside swallow 06/02: puree diet, aspiration precautions, alternate solids and 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 Admission and Anticipated Discharge Date Admission Date: May 29, 2024 Subjective Wallis replaced last night pt was also more agitated last night This morning, pt is in mitts and was upset Review of Systems Review of Systems: Comprehensive ROS completed Physical Exam Physical Exam: Gen: awake and alert, no acute distress HEENT: cachectic, bitemporal wasting, MMM CVS: s1s2 nl, RRR Lungs: CTAB Abd: soft, nontender, normal bowel sounds : + wallis Ext: no edema Psych: agitated when alone, but much better mood with at bedside Results & Data Results & Data Vital Signs (Past 12 Hours) Vital Signs Temp Pulse Pulse Resp BP Pulse Ox O2 Del Method 06/08/24 07:48 36.8 C 69 17 146/55 H 93 Room Air 06/08/24 07:05 75 06/08/24 03:51 36.8 C 78 18 138/65 95 Room Air 06/07/24 22:46 36.7 C 82 18 137/57 L 92 Room Air 06/07/24 22:04 76 PG Care Time/CCT Total # of Minutes Spent Total Time Spent with Patient: Total time spent is greater than 50% in coordination of care (as documented) at patient's floor/unit and/or counseling patient: Coding Level of Care Code 06010 SUB INP/OBS CARE 2/35MIN Diagnoses Metabolic encephalopathy G93.41 Acute hyponatremia E87.1 Atrial fibrillation with rapid ventricular response I48.91
[2024-06-08 08:28] LABS: Basophils # (auto) 0.02 K/uL (0.00-0.20); Basophils % (auto) 0.3 %; Eosinophils # (auto) 0.15 K/uL (0.00-0.50); Eosinophils % (auto) 2.2 %; Hematocrit (blood only) 30.1 % (42.0-52.0); Hemoglobin 10.9 g/dl (14.0-18.0); Immature Granulocytes # (auto) 0.11 K/uL (0.01-0.20); Immature Granulocytes % (auto) 1.6 %; Lymphocytes # (auto) 0.87 K/uL (1.20-3.40); Lymphocytes % (auto) 12.5 %; Mean Corpuscular Hemoglobin 32.9 pg (25.0-34.0); Mean Corpuscular Hgb Conc 36.2 g/dL (32.0-36.0); Mean Corpuscular Volume 90.9 fL (80.0-100.0); Mean Platelet Volume 9.1 fL (9.4-12.4); Monocytes # (auto) 0.77 K/uL (0.11-0.59); Neutrophils # (auto) 5.05 K/uL (1.40-6.50); Neutrophils % (auto) 72.4 %; Platelet Count 260 K/uL (130-400); RDW Coefficient of Variation 12.3 % (11.5-14.5); RDW Standard Deviation 41.1 fL (36.4-46.3); Red Blood Count 3.31 M/uL (4.70-6.10); White Blood Count 6.97 K/ul (4.8-10.8)
[2024-06-08 08:37] LABS: Calcium 8.2 mg/dl (8.6-10.3); Creatinine Clr Calc Pharmacy 90.8 ml/min; Est GFR (African American) 112.7 ml/min; Est GFR (Non-African American) 97.2 ml/min; Potassium 4.2 mmol/L (3.5-5.1)
[2024-06-08] MEDS: QUEtiapine FUMARATE 25 MG TABLET PO PRN (11:27)
[2024-06-08] MEDS: SODIUM CHLORIDE 0.9% 500 ML IV SCH (17:55)
[2024-06-08] MEDS: QUEtiapine FUMARATE 25 MG TABLET PO SCH (21:05)
[2024-06-09 07:30] LABS: Basophils # (auto) 0.02 K/uL (0.00-0.20); Basophils % (auto) 0.3 %; Hematocrit (blood only) 30.1 % (42.0-52.0); Hemoglobin 10.6 g/dl (14.0-18.0); Immature Granulocytes # (auto) 0.11 K/uL (0.01-0.20); Immature Granulocytes % (auto) 1.6 %; Lymphocytes # (auto) 0.87 K/uL (1.20-3.40); Mean Corpuscular Hemoglobin 32.3 pg (25.0-34.0); Mean Corpuscular Hgb Conc 35.2 g/dL (32.0-36.0); Mean Corpuscular Volume 91.8 fL (80.0-100.0); Mean Platelet Volume 9.1 fL (9.4-12.4); Monocytes # (auto) 0.68 K/uL (0.11-0.59); Monocytes % (auto) 10.2 %; Neutrophils % (auto) 71.9 %; Platelet Count 277 K/uL (130-400); RDW Coefficient of Variation 12.4 % (11.5-14.5); RDW Standard Deviation 41.5 fL (36.4-46.3); Red Blood Count 3.28 M/uL (4.70-6.10); White Blood Count 6.68 K/ul (4.8-10.8)
[2024-06-09 07:46] LABS: Calcium 8.1 mg/dl (8.6-10.3); Creatinine Clr Calc Pharmacy 78.9 ml/min; Est GFR (African American) 106.3 ml/min; Est GFR (Non-African American) 91.7 ml/min; Phosphorus 3.1 mg/dl (2.5-4.9); Potassium 4.2 mmol/L (3.5-5.1)
[2024-06-09] MEDS: SODIUM CHLORIDE 0.9% 1,000 ML IV SCH (12:14)
--- NOTE | 2024-06-09 12:36 | Hospitalist Progress Note ---
Date of Service June 09, 2024 Assessment & Plan (1) Metabolic encephalopathy: (2) Acute hyponatremia: (3) Atrial fibrillation with rapid ventricular response: Plan #AFib with RVR - resolved #Elevated troponin - new onset (06/01/24) - Cardiology recs appreciated: ECHO unremarkable, on low dose metoprolol, aspirin 81mg for now, MCOT 30 day monitor on discharge, f/u with cards after discharge - pt is also on therapeutic lovenox, but per discussion with cardiology, high risk for complications with initiation of DOAC on discharge, thus will not AC on discharge, further decision to be made once evaluated in cards office - cont to trend trop, suspect demand HR appears controlled on 06/09 #Metabolic Encephalopathy - combination of hyponatremia, UTI - CT head without any acute ischemic changes, ?NPH - melatonin nightly - pt has received multiple doses of zyprexa initially, currently on seroquel BID, increased night time dose to 50mg, maintain AM dose at 25mg, prn seroquel 25mg ordered for additional support #Urinary retention #UTI - UCx growing enterococcus, currently on Ampicillin, last dose on 06/09 - likely due to immobility, zyprexa, straight caths - wallis replaced - cont flomax #Acute hyponatremia: Resolved - due to desmopressin, currently discontinued - Na trended down slightly, he is on fluid restriction. trend at this time - nephrology recs appreciated -sodium at goal on 06/09 #Hip arthritis: Per PCP note taking daily or every other day methylprednisolone for this which has improved his hip and lumbar spine pain Adrenal insufficiency possibility although given clear alternative cause of hyponatremia would only workup for this is sodium does not normalize after discontinuation of desmopressin #Gait disturbance: - PT/OT recs rehab, however wants to take pt home - CM consulted to assist with d/c planning #Malnutrition #Underweight, BMI < 19 #Aspiration risk - bedside swallow 06/02: puree diet, aspiration precautions, 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 Admission and Anticipated Discharge Date Admission Date: May 29, 2024 Subjective Patient appears calm. Off mitts. Review of Systems Review of Systems: All systems reviewed & are unremarkable except as noted in HPI & below Physical Exam Physical Exam: awake, confused, but no longer agitated. Off mitts cardiac is regular, no afib lungs are clear abd is soft and non tender Results & Data Results & Data Vital Signs (Past 12 Hours) Vital Signs Temp Pulse Pulse Resp BP BP Pulse Ox 06/09/24 11:31 37.1 C 75 16 135/55 L 95 06/09/24 07:55 36.8 C 76 16 118/67 95 06/09/24 07:42 64 06/09/24 04:00 36.9 C 75 18 121/67 100 O2 Del Method 06/09/24 11:31 Room Air 06/09/24 07:55 Room Air 06/09/24 07:42 06/09/24 04:00 Room Air PG Care Time/CCT Total # of Minutes Spent Total Time Spent with Patient: Total time spent is greater than 50% in coordination of care (as documented) at patient's floor/unit and/or counseling patient: Coding Level of Care Code 62758 SUB INP/OBS CARE 2/35MIN Diagnoses Metabolic encephalopathy G93.41 Acute hyponatremia E87.1 Atrial fibrillation with rapid ventricular response I48.91
[2024-06-09 13:18] LABS: BUN Creatinine Ratio 36.4 (10-20); Calcium 7.8 mg/dl (8.6-10.3); Creatinine Clr Calc Pharmacy 86.1 ml/min; Est GFR (African American) 110.1 ml/min; Potassium 4.1 mmol/L (3.5-5.1)
[2024-06-09 18:05] LABS: BUN Creatinine Ratio 32.7 (10-20); Calcium 7.9 mg/dl (8.6-10.3); Creatinine Clr Calc Pharmacy 86.1 ml/min; Est GFR (African American) 110.1 ml/min
[2024-06-09 21:42] LABS: BUN Creatinine Ratio 30.2 (10-20); Calcium 8.1 mg/dl (8.6-10.3); Creatinine Clr Calc Pharmacy 75.2 ml/min; Est GFR (African American) 104.1 ml/min; Est GFR (Non-African American) 89.9 ml/min; Potassium 4.2 mmol/L (3.5-5.1)
[2024-06-10 06:33] LABS: Hematocrit (blood only) 28.6 % (42.0-52.0); Hemoglobin 10.6 g/dl (14.0-18.0); Mean Corpuscular Hemoglobin 33.2 pg (25.0-34.0); Mean Corpuscular Hgb Conc 37.1 g/dL (32.0-36.0); Mean Corpuscular Volume 89.7 fL (80.0-100.0); Platelet Count 301 K/uL (130-400); RDW Coefficient of Variation 11.9 % (11.5-14.5); Red Blood Count 3.19 M/uL (4.70-6.10); White Blood Count 6.39 K/ul (4.8-10.8)
--- NOTE | 2024-06-10 16:52 | Hospitalist Progress Note ---
Date of Service June 10, 2024 Assessment & Plan (1) Metabolic encephalopathy: (2) Acute hyponatremia: (3) Atrial fibrillation with rapid ventricular response: Plan #AFib with RVR - resolved #Elevated troponin - new onset (06/01/24) - Cardiology recs appreciated: ECHO unremarkable, on low dose metoprolol, aspirin 81mg for now, MCOT 30 day monitor on discharge, f/u with cards after discharge - pt is also on therapeutic lovenox, but per discussion with cardiology, high risk for complications with initiation of DOAC on discharge, thus will not AC on discharge, further decision to be made once evaluated in cards office - cont to trend trop, suspect demand HR appears controlled on 06/10 #Metabolic Encephalopathy - combination of hyponatremia, UTI - CT head without any acute ischemic changes, ?NPH - melatonin nightly - pt has received multiple doses of zyprexa initially, currently on seroquel BID, increased night time dose to 50mg, maintain AM dose at 25mg, prn seroquel 25mg ordered for additional support -restraints removed on 06/09 #Urinary retention #UTI - UCx growing enterococcus, currently on Ampicillin, last dose on 06/09 - likely due to immobility, zyprexa, straight caths - wallis replaced - cont flomax #Acute hyponatremia: Resolved - due to desmopressin, currently discontinued - Na trended down slightly, he is on fluid restriction. trend at this time - nephrology recs appreciated -sodium at goal on 06/09 #Hip arthritis: Per PCP note taking daily or every other day methylprednisolone for this which has improved his hip and lumbar spine pain Adrenal insufficiency possibility although given clear alternative cause of hyponatremia would only workup for this is sodium does not normalize after discontinuation of desmopressin #Gait disturbance: - PT/OT recs rehab, however wants to take pt home - CM consulted to assist with d/c planning #Malnutrition #Underweight, BMI < 19 #Aspiration risk - bedside swallow 06/02: puree diet, aspiration precautions, 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 Admission and Anticipated Discharge Date Admission Date: May 29, 2024 Subjective 84 yo male appears comfortable. Review of Systems Review of Systems: All systems reviewed & are unremarkable except as noted in HPI & below Physical Exam Physical Exam: awake, confused, but no longer agitated. Off mitts cardiac is regular, no afib lungs are clear abd is soft and non tender Results & Data Results & Data Vital Signs (Past 12 Hours) Vital Signs Temp Pulse Pulse Resp BP Pulse Ox O2 Del Method 06/10/24 16:39 36.6 C 80 18 163/63 H 100 Room Air 06/10/24 14:36 74 06/10/24 11:46 37 C 69 17 129/57 L 99 Room Air 06/10/24 11:00 Room Air 06/10/24 07:56 36.9 C 73 17 146/61 H 99 Room Air 06/10/24 07:33 82 PG Care Time/CCT Total # of Minutes Spent Total Time Spent with Patient: Total time spent is greater than 50% in coordination of care (as documented) at patient's floor/unit and/or counseling patient: Coding Level of Care Code 81443 SUB INP/OBS CARE 2/35MIN Diagnoses Metabolic encephalopathy G93.41 Acute hyponatremia E87.1 Atrial fibrillation with rapid ventricular response I48.91
[2024-06-11] MEDS: HALOPERIDOL LACTATE 5 MG/ML 1 ML VIAL IM PRN (21:03)
--- NOTE | 2024-06-11 21:04 | Hospitalist Progress Note ---
Date of Service June 11, 2024 Assessment & Plan (1) Metabolic encephalopathy: (2) Acute hyponatremia: (3) Atrial fibrillation with rapid ventricular response: Plan #AFib with RVR - resolved #Elevated troponin - new onset (06/01/24) - Cardiology recs appreciated: ECHO unremarkable, on low dose metoprolol, aspirin 81mg for now, MCOT 30 day monitor on discharge, f/u with cards after discharge - pt is also on therapeutic lovenox, but per discussion with cardiology, high risk for complications with initiation of DOAC on discharge, thus will not AC on discharge, further decision to be made once evaluated in cards office - cont to trend trop, suspect demand HR appears controlled on 06/11 #Metabolic Encephalopathy - combination of hyponatremia, UTI - CT head without any acute ischemic changes, ?NPH - melatonin nightly - pt has received multiple doses of zyprexa initially, currently on seroquel BID, increased night time dose to 50mg, maintain AM dose at 25mg, prn seroquel 25mg ordered for additional support -restraints removed on 06/09 -required restraints on 06/11 #Urinary retention #UTI - UCx growing enterococcus, currently on Ampicillin, last dose on 06/09 - likely due to immobility, zyprexa, straight caths - wallis replaced - cont flomax #Acute hyponatremia: Resolved - due to desmopressin, currently discontinued - Na trended down slightly, he is on fluid restriction. trend at this time - nephrology recs appreciated -sodium at goal on 06/09 #Hip arthritis: Per PCP note taking daily or every other day methylprednisolone for this which has improved his hip and lumbar spine pain Adrenal insufficiency possibility although given clear alternative cause of h yponatremia would only workup for this is sodium does not normalize after discontinuation of desmopressin #Gait disturbance: - PT/OT recs rehab, however wants to take pt home - CM consulted to assist with d/c planning #Malnutrition #Underweight, BMI < 19 #Aspiration risk - bedside swallow 06/02: puree diet, aspiration precautions, 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 Admission and Anticipated Discharge Date Admission Date: May 29, 2024 Subjective Patient continues to be intermittetntly confused. Physical Exam Constitutional: well developed, well nourished and + frail appearing; no acute distress Eyes: PERRL, conjunctivae normal, anicteric sclerae ENMT: external ear and nose normal, oropharynx normal Respiratory: normal respiratory effort, lungs clear to auscultation Cardiovascular: RRR, no murmur, no edema Gastrointestinal (Abdomen): normal bowel sounds, soft, nontender, no hepatosplenomegaly Neurologic: moves all extremities, awake and + confused; no focal motor deficits Motor/Sensory: no tremor and no pronator drift Cranial Nerves: PERRL, EOM intact bilaterally, normal facial strength, tongue midline, able to rotate head bilaterally, able to elevate shoulders bilaterally and symmetric palate elevation Psychiatric: Orientation: alert and oriented to person; + not oriented to place and + not oriented to time Genitourinary: no CVA tenderness Results & Data Results & Data Vital Signs (Past 12 Hours) Vital Signs Temp Pulse Pulse Pulse Resp BP BP 06/11/24 19:24 37 C 91 H 18 168/70 H 06/11/24 16:38 36.3 C L 71 17 127/51 L 06/11/24 15:14 70 06/11/24 11:56 36.5 C 67 17 131/60 Pulse Ox O2 Del Method 06/11/24 19:24 95 Room Air 06/11/24 16:38 93 Room Air 06/11/24 15:14 06/11/24 11:56 99 Room Air PG Care Time/CCT Total # of Minutes Spent Total Time Spent with Patient: Total time spent is greater than 50% in coordination of care (as documented) at patient's floor/unit and/or counseling patient: Coding Level of Care Code 97881 SUB INP/OBS CARE 2/35MIN Diagnoses Metabolic encephalopathy G93.41 Acute hyponatremia E87.1 Atrial fibrillation with rapid ventricular response I48.91
[2024-06-11] MEDS: DOCUSATE SODIUM 100 MG CAP PO ONE ×2 (21:46)
[2024-06-12] MEDS: SOD PHOSPHATE/SOD BIPHOSPHATE ENEMA 132 ML BTL PR STA (17:19)
[2024-06-12] MEDS: POLYETHYLENE (MIRALAX) 17 GM PACK PO SCH (17:22)
[2024-06-12] MEDS: ACETAMINOPHEN 325 MG TAB PO PRN (20:33)
--- NOTE | 2024-06-12 21:56 | Hospitalist Progress Note ---
Date of Service June 12, 2024 Assessment & Plan (1) Metabolic encephalopathy: (2) Acute hyponatremia: (3) Atrial fibrillation with rapid ventricular response: Plan #AFib with RVR - resolved #Elevated troponin - new onset (06/01/24) - Cardiology recs appreciated: ECHO unremarkable, on low dose metoprolol, aspirin 81mg for now, MCOT 30 day monitor on discharge, f/u with cards after discharge - pt is also on therapeutic lovenox, but per discussion with cardiology, high risk for complications with initiation of DOAC on discharge, thus will not AC on discharge, further decision to be made once evaluated in cards office - cont to trend trop, suspect demand HR appears controlled on 06/12 #Metabolic Encephalopathy - combination of hyponatremia, UTI - CT head without any acute ischemic changes, ?NPH - melatonin nightly - pt has received multiple doses of zyprexa initially, currently on seroquel BID, increased night time dose to 50mg, maintain AM dose at 25mg, prn seroquel 25mg ordered for additional support -restraints removed on 06/09 -required restraints on 06/11 -off restraints on 06/12 #Urinary retention #UTI - UCx growing enterococcus, currently on Ampicillin, last dose on 06/09 - likely due to immobility, zyprexa, straight caths - wallis replaced - cont flomax -will consider holding off wallis on 06/13 #Acute hyponatremia: Resolved - due to desmopressin, currently discontinued - Na trended down slightly, he is on fluid restriction. trend at this time - nephrology recs appreciated -sodium at goal on 06/09 #Hip arthritis: Per PCP note taking daily or every other day methylprednisolone for this which has improved his hip and lumbar spine pain Adrenal insufficiency possibility although given clear alternative cause of hyponatremia would only workup for this is sodium does not normalize after discontinuation of desmopressin #Gait disturbance: - PT/OT recs rehab, however wants to take pt home - CM consulted to assist with d/c planning #Malnutrition #Underweight, BMI < 19 #Aspiration risk - bedside swallow 06/02: puree diet, aspiration precautions, 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 Patient had a hard BM on 06/12, required an emema. Admission and Anticipated Discharge Date Admission Date: May 29, 2024 Subjective Patient appears more calm today. Patient asking for an emema. Review of Systems Review of Systems: All systems reviewed & are unremarkable except as noted in HPI & below Physical Exam Physical Exam: awake, confused, but no longer agitated. Off mitts cardiac is regular, no afib lungs are clear abd is soft and non tender Results & Data Results & Data Vital Signs (Past 12 Hours) Vital Signs Temp Pulse Pulse Resp BP BP Pulse Ox 06/12/24 19:51 36.8 C 93 H 18 155/73 H 96 06/12/24 15:13 67 06/12/24 15:10 36.4 C L 74 18 119/51 L 99 06/12/24 12:39 73 06/12/24 11:33 06/12/24 11:20 36.4 C L 69 16 129/61 97 O2 Del Method 06/12/24 19:51 Room Air 06/12/24 15:13 06/12/24 15:10 Room Air 06/12/24 12:39 06/12/24 11:33 Room Air 06/12/24 11:20 Room Air PG Care Time/CCT Total # of Minutes Spent Total Time Spent with Patient: Total time spent is greater than 50% in coordination of care (as documented) at patient's floor/unit and/or counseling patient: Coding Level of Care Code 73770 SUB INP/OBS CARE 2/35MIN Diagnoses Metabolic encephalopathy G93.41 Acute hyponatremia E87.1 Atrial fibrillation with rapid ventricular response I48.91
--- NOTE | 2024-06-14 06:50 | Hospitalist Progress Note ---
Date of Service June 13, 2024 Assessment & Plan (1) Metabolic encephalopathy: (2) Acute hyponatremia: (3) Atrial fibrillation with rapid ventricular response: Plan #AFib with RVR - resolved #Elevated troponin - new onset (06/01/24) - Cardiology recs appreciated: ECHO unremarkable, on low dose metoprolol, aspirin 81mg for now, MCOT 30 day monitor on discharge, f/u with cards after discharge - pt is also on therapeutic lovenox, but per discussion with cardiology, high risk for complications with initiation of DOAC on discharge, thus will not AC on discharge, further decision to be made once evaluated in cards office - cont to trend trop, suspect demand HR appears controlled on 06/13 #Metabolic Encephalopathy - combination of hyponatremia, UTI - CT head without any acute ischemic changes, ?NPH - melatonin nightly - pt has received multiple doses of zyprexa initially, currently on seroquel BID, increased night time dose to 50mg, maintain AM dose at 25mg, prn seroquel 25mg ordered for additional support -restraints removed on 06/09 -required restraints on 06/11 -off restraints on 06/12 #Urinary retention #UTI - UCx growing enterococcus, currently on Ampicillin, last dose on 06/09 - likely due to immobility, zyprexa, straight caths - wallis replaced - cont flomax -will consider holding off wallis on 06/13 -patient removed wallis, had hematuria on 06/13, this quickly subsided. will monitor. #Acute hyponatremia: Resolved - due to desmopressin, currently discontinued - Na trended down slightly, he is on fluid restriction. trend at this time - nephrology recs appreciated -sodium at goal on 06/09 #Hip arthritis: Per PCP note taking daily or every other day methylprednisolone for this which has improved his hip and lumbar spine pain Adrenal insufficiency possibility although given clear alternative cause of hyponatremia would only workup for this is sodium does not normalize after discontinuation of desmopressin #Gait disturbance: - PT/OT recs rehab, however wants to take pt home - CM consulted to assist with d/c planning #Malnutrition #Underweight, BMI < 19 #Aspiration risk - bedside swallow 06/02: puree diet, aspiration precautions, 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 Patient had a hard BM on 06/12, required an emema. Admission and Anticipated Discharge Date Admission Date: May 29, 2024 Subjective Patient appears calm. Review of Systems Review of Systems: All systems reviewed & are unremarkable except as noted in HPI & below Physical Exam Physical Exam: awake, confused, but no longer agitated. Off mitts cardiac is regular, no afib lungs are clear abd is soft and non tender Results & Data Results & Data Vital Signs (Past 12 Hours) Vital Signs Temp Pulse Pulse Resp BP Pulse Ox O2 Del Method 06/14/24 03:59 36.6 C 84 16 129/53 L 96 Room Air 06/13/24 22:38 36.8 C 85 20 145/66 H 97 Room Air 06/13/24 21:45 81 06/13/24 19:42 36.6 C 89 20 167/74 H 96 Room Air 06/13/24 19:00 Room Air PG Care Time/CCT Total # of Minutes Spent Total Time Spent with Patient: Total time spent is greater than 50% in coordination of care (as documented) at patient's floor/unit and/or counseling patient: Coding Level of Care Code 24985 SUB INP/OBS CARE 2/35MIN Diagnoses Metabolic encephalopathy G93.41 Acute hyponatremia E87.1 Atrial fibrillation with rapid ventricular response I48.91
--- NOTE | 2024-06-14 10:30 | Urology Consultation ---
Date of Consultation June 14, 2024 Assessment & Plan (1) Dementia: (2) Prostate cancer: Plan Traumatic Solorzano catheter self removal Prior brachytherapy for prostate cancer Has had some hematuria since catheter removal which would be expected I think would be a mistake to replace a Solorzano catheter given his current restraints and combative dementia I recommend straight cath as needed and try to avoid indwelling catheter since secondary to anticipated repeat traumatic removal if a tube is left in place Please call us if further issues arise during this hospitalization, no intervention indicated History of Present Illness Attending Physician: Jelani Haskins Reshma History of Present Illness 84-year-old gentleman in a somewhat combative state secondary to some dementia Unfortunately, he had a traumatic Solorzano removal yesterday secondary to confusion He had some hematuria but has been voiding somewhat since that time He has required straight cath as well He is in a very peaceful state upon evaluation this morning but his reports that he is become increasingly more combative at different times over the past several days He denies any discomfort and does not have a distended abdomen at present Allergies Allergy/AdvReac Type Severity Reaction Status Date / Time No Known Drug Allergies Allergy Verified 05/29/24 14:24 Home Medications Medication Instructions Recorded Confirmed Type calcium citrate 315 mg 1 tab PO 2XWK 10/30/18 05/29/24 History calcium-vitamin D3 6.25 mcg (250 unit) tablet (Citracal + Vitamin D Maximum) diclofenac sodium 1 % topical gel 2 g topical QID 08/23/22 05/29/24 History sertraline 50 mg tablet 75 mg (1.5 x 50 mg) PO DAILY #45 07/25/23 05/29/24 Rx tabs rivastigmine tartrate 3 mg capsule 3 mg PO BID #60 caps 02/21/24 05/29/24 Rx methylprednisolone 4 mg tablet 4 mg PO DAILY #90 tabs 04/29/24 05/29/24 Rx desmopressin 0.2 mg tablet 0.6 mg (3 x 0.2 mg) PO HS #90 tabs 05/21/24 05/29/24 Rx Patient History Medical History Greater trochanteric pain syndrome Sinusitis Impacted cerumen, right ear Right hip pain Poor historian Osteoarthritis Stomach ulcer HX OF ULCER GERD (gastroesophageal reflux disease) Cancer PROSTATE (RADIATION [place]) - 2012 Memory problem FORGETFULL WITH NAMES Surgical History History of cataract surgery History of esophagogastroduodenoscopy (EGD) History of colonoscopy History of herniorrhaphy RIGHT History of tooth extraction Family History Mother Diabetes Uncle Colorectal cancer Aunt Colorectal cancer Father Stroke Denies family history of Ovarian cancer Prostate cancer Myocardial infarction Breast cancer Lung cancer Social History Smoking Status: Never smoker Second Hand Exposure: No; Do You Dip or Chew Tobacco: No; Hx Alcohol Use: Yes Alcohol type: wine Alcohol Intake Frequency: 2-3 x/Week Hx Substance Use: No Preferred Language: Niuean Communication Ability: Effective Visual Impairment: Limited Hearing Ability: Use of Hearing Aid Eye Dropper Assembler Required: No Beliefs That Will Affect Care: None marital status: Current Living Situation: Spouse current occupational status: retired How many Children do You have: 3 Feels Safe at Home: Yes Safety Concerns: Feels Safe At This Time Childhood Exposure to Second-Hand Smoke: No Diet: regular caffeine: Yes Dental Care, Regularly: Yes Physical Activity Frequency: Daily Physical Activity Frequency Comment: walking Seatbelt Use: always Sunscreen Use: Yes Assistive Devices: Other Review of Systems Review of Systems: All systems reviewed & are unremarkable except as noted in HPI & below Physical Exam Physical Exam: Mild confusion but appropriately interactive Abdomen soft No respiratory distress No significant edema Nondistended bladder No CVA tenderness Results & Data Vital Signs (Past 12 Hours) Vital Signs Temp Pulse Pulse Resp BP BP Pulse Ox 06/14/24 08:26 74 06/14/24 08:23 37.1 C 79 16 129/54 L 97 06/14/24 03:59 36.6 C 84 16 129/53 L 96 06/13/24 22:38 36.8 C 85 20 145/66 H 97 O2 Del Method 06/14/24 08:26 06/14/24 08:23 Room Air 06/14/24 03:59 Room Air 06/13/24 22:38 Room Air PG Care Time/CCT Total # of Minutes Spent Total Time Spent with Patient: Total time spent is greater than 50% in coordination of care (as documented) at patient's floor/unit and/or counseling patient: Coding Level of Care Code 86467 IN/OBS CONSULT LVL 3,45M Diagnoses Dementia F03.90 Prostate cancer C61
[2024-06-14] MEDS: PHENAZOPYRIDINE HCL 200 MG TAB PO SCH (15:07)
[2024-06-14] MEDS: ACETAMINOPHEN 325 MG TAB PO SCH (17:06)
[2024-06-14] MEDS: Nursing to Pharmacy Communication SCH (23:08)
--- NOTE | 2024-06-15 08:21 | Hospitalist Progress Note ---
Date of Service June 14, 2024 Assessment & Plan (1) Metabolic encephalopathy: (2) Acute hyponatremia: (3) Atrial fibrillation with rapid ventricular response: Plan #AFib with RVR - resolved #Elevated troponin - new onset (06/01/24) - Cardiology recs appreciated: ECHO unremarkable, on low dose metoprolol, aspirin 81mg for now, MCOT 30 day monitor on discharge, f/u with cards after discharge - pt is also on therapeutic lovenox, but per discussion with cardiology, high risk for complications with initiation of DOAC on discharge, thus will not AC on discharge, further decision to be made once evaluated in cards office - cont to trend trop, suspect demand HR appears controlled on 06/13 #Metabolic Encephalopathy - combination of hyponatremia, UTI - CT head without any acute ischemic changes, ?NPH - melatonin nightly - pt has received multiple doses of zyprexa initially, currently on seroquel BID, increased night time dose to 50mg, maintain AM dose at 25mg, prn seroquel 25mg ordered for additional support -restraints removed on 06/09 -required restraints on 06/11 -off restraints on 06/12 #Urinary retention #UTI - UCx growing enterococcus, currently on Ampicillin, last dose on 06/09 - likely due to immobility, zyprexa, straight caths - wallis replaced - cont flomax -will consider holding off wallis on 06/13 -patient removed wallis traumatically. will straight cath from now on. consulted urology. #Acute hyponatremia: Resolved - due to desmopressin, currently discontinued - Na trended down slightly, he is on fluid restriction. trend at this time - nephrology recs appreciated -sodium at goal on 06/09 #Hip arthritis: Per PCP note taking daily or every other day methylprednisolone for this which has improved his hip and lumbar spine pain Adrenal insufficiency possibility although given clear alternative cause of hyponatremia would only workup for this is sodium does not normalize after discontinuation of desmopressin #Gait disturbance: - PT/OT recs rehab, however wants to take pt home - CM consulted to assist with d/c planning #Malnutrition #Underweight, BMI < 19 #Aspiration risk - bedside swallow 06/02: puree diet, aspiration precautions, alternate solids and liquids - 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 Patient had a hard BM on 06/12, required an emema. Admission and Anticipated Discharge Date Admission Date: May 29, 2024 [facility]ive [facility] Appears comfortable. Review of Systems Review of Systems: All systems reviewed & are unremarkable except as noted in HPI & below Physical Exam Physical Exam: awake, confused, but no longer agitated. cardiac is regular, no afib lungs are clear abd is soft and non tender Results & Data Results & Data Vital Signs (Past 12 Hours) Vital Signs Temp Pulse Pulse Resp BP Pulse Ox O2 Del Method 06/15/24 07:44 36.6 C 79 16 173/74 H 97 Room Air 06/15/24 07:13 84 06/15/24 03:11 36.3 C L 88 14 127/61 97 Room Air 06/15/24 00:19 84 06/15/24 00:11 84 PG Care Time/CCT Total # of Minutes Spent Total Time Spent with Patient: Total time spent is greater than 50% in coordination of care (as documented) at patient's floor/unit and/or counseling patient: Coding Level of Care Code 30854 SUB INP/OBS CARE 2/35MIN Diagnoses Metabolic encephalopathy G93.41 Acute hyponatremia E87.1 Atrial fibrillation with rapid ventricular response I48.91
--- NOTE | 2024-06-15 21:47 | Hospitalist Progress Note ---
Date of Service June 15, 2024 Assessment & Plan (1) Metabolic encephalopathy: (2) Acute hyponatremia: (3) Atrial fibrillation with rapid ventricular response: Plan #AFib with RVR - resolved #Elevated troponin - new onset (06/01/24) - Cardiology recs appreciated: ECHO unremarkable, on low dose metoprolol, aspirin 81mg for now, MCOT 30 day monitor on discharge, f/u with cards after discharge - pt is also on therapeutic lovenox, but per discussion with cardiology, high risk for complications with initiation of DOAC on discharge, thus will not AC on discharge, further decision to be made once evaluated in cards office - cont to trend trop, suspect demand HR appears controlled since 06/13 #Metabolic Encephalopathy - combination of hyponatremia, UTI - CT head without any acute ischemic changes, ?NPH - melatonin nightly - pt has received multiple doses of zyprexa initially, currently on seroquel BID, increased night time dose to 50mg, maintain AM dose at 25mg, prn seroquel 25mg ordered for additional support -Patient has intermittently required restraints this past week, ordered restraints on 06/14 currently has a one to one #Urinary retention #UTI - UCx growing enterococcus, currently on Ampicillin, last dose on 06/09 - likely due to immobility, zyprexa, straight caths - wallis replaced - cont flomax -patient removed wallis traumatically on 06/13 will straight cath from now on. consulted urology. #Acute hyponatremia: Resolved - due to desmopressin, currently discontinued - Na trended down slightly, he is on fluid restriction. trend at this time - nephrology recs appreciated -sodium at goal on 06/09 #Hip arthritis: Per PCP note taking daily or every other day methylprednisolone for this which has improved his hip and lumbar spine pain Adrenal insufficiency possibility although given clear alternative cause of hyponatremia would only workup for this is sodium does not normalize after discontinuation of desmopressin #Gait disturbance: - PT/OT recs rehab, however wants to take pt home - CM consulted to assist with d/c planning #Malnutrition #Underweight, BMI < 19 #Aspiration risk - bedside swallow 06/02: puree diet, aspiration precautions, alternate solids and liquids - 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 Patient had a hard BM on 06/12, required an emema. Admission and Anticipated Discharge Date Admission Date: May 29, 2024 Subjective Patient is resting comfortably. One to one is with him Physical Exam Physical Exam: awake, confused, but no longer agitated. cardiac is regular, no afib lungs are clear abd is soft and non tender Results & Data Results & Data Vital Signs (Past 12 Hours) Vital Signs Temp Pulse Pulse Resp BP BP Pulse Ox 06/15/24 18:49 36.7 C 94 H 17 161/74 H 95 06/15/24 16:01 65 06/15/24 14:46 36.7 C 82 20 170/69 H 98 06/15/24 11:46 36.3 C L 73 18 153/72 H 98 O2 Del Method 06/15/24 18:49 Room Air 06/15/24 16:01 06/15/24 14:46 Room Air 06/15/24 11:46 Room Air PG Care Time/CCT Total # of Minutes Spent Total Time Spent with Patient: Total time spent is greater than 50% in coordination of care (as documented) at patient's floor/unit and/or counseling patient: Coding Level of Care Code 57283 SUB INP/OBS CARE 2/35MIN Diagnoses Metabolic encephalopathy G93.41 Acute hyponatremia E87.1 Atrial fibrillation with rapid ventricular response I48.91
[2024-06-16 04:49] LABS: Hematocrit (blood only) 31.7 % (42.0-52.0); Mean Corpuscular Hgb Conc 34.7 g/dL (32.0-36.0); Mean Corpuscular Volume 92.2 fL (80.0-100.0); Mean Platelet Volume 8.8 fL (9.4-12.4); Platelet Count 462 K/uL (130-400); RDW Coefficient of Variation 12.5 % (11.5-14.5); RDW Standard Deviation 41.5 fL (36.4-46.3); Red Blood Count 3.44 M/uL (4.70-6.10); White Blood Count 6.89 K/ul (4.8-10.8)
[2024-06-16 04:56] LABS: Calcium 8.4 mg/dl (8.6-10.3); Creatinine Clr Calc Pharmacy 73.4 ml/min; Est GFR (African American) 105.5 ml/min; Est GFR (Non-African American) 91.1 ml/min
--- NOTE | 2024-06-16 08:52 | Hospitalist Progress Note ---
Date of Service June 16, 2024 Assessment & Plan (1) Metabolic encephalopathy: Plan: Metabolic Encephalopathy - combination of hyponatremia, UTI both now treated and not improved - CT head without any acute ischemic changes, ?NPH - melatonin nightly, stop excelon - currently on seroquel BID, -Patient has intermittently required restraints this past week, ordered restraints on 06/14 currently has a one to one (2) Acute hyponatremia: Plan: Acute hyponatremia: Resolved - due to desmopressin, currently discontinued - Na trended down slightly, he is on fluid restriction. trend at this time - nephrology recs appreciated -sodium at goal on 06/09 (3) Atrial fibrillation with rapid ventricular response: Plan: AFib with RVR - new onset (06/01/24) - HR appears controlled since 06/13 Elevated troponin suspected from demand ischemia - Cardiology recs appreciated: ECHO unremarkable, on low dose metoprolol, aspirin 81mg for now, MCOT 30 day monitor on discharge, f/u with cards after discharge - pt is also on therapeutic lovenox, but per discussion with cardiology, high risk for complications with initiation of DOAC on discharge, thus will not AC on discharge, further decision to be made once evaluated in cards office (4) UTI (urinary tract infection): Plan: Present on admission, associated with urinary retention UCx growing enterococcus, completed Ampicillin, last dose on 06/09 - likely due to immobility, zyprexa, straight caths - cont flomax -patient removed wallis traumatically on 06/13 will straight cath from now on. consulted urology. Plan Gait disturbance: impacted by hip arthritis, ( also ? 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 / nutrition recs appreciated DVT ppx - lovenox subq disposition to snf once 1:1 is resolved Admission and Anticipated Discharge Date Admission Date: May 29, 2024 Subjective pt is confused and fidgety, son is at bedside, pre hospital notes did have a positive minicog screen 05/21, family feels has had a rapid decline no focal deficits, will attempt to minimize medications to help clear mental state as much as possible Physical Exam Physical Exam: aware, oriented x 1, cardiac is regular neuro, follows exam, folding sheet while talking, reaching out to me Results & Data Results & Data Vital Signs (Past 12 Hours) Vital Signs Temp Pulse Pulse Resp BP Pulse Ox O2 Del Method 06/16/24 06:57 97.3 F L 81 16 142/68 H 96 Room Air 06/16/24 01:27 97.3 F L 78 16 155/65 H 94 Room Air 06/15/24 22:03 70 Laboratory Results review cbc review chemistry PG Care Time/CCT Total # of Minutes Spent Total Time Spent with Patient: Total time spent is greater than 50% in coordination of care (as documented) at patient's floor/unit and/or counseling patient: Coding Level of Care Code 29437 SUB INP/OBS CARE 3/50MIN Diagnoses Metabolic encephalopathy G93.41 Acute hyponatremia E87.1 Atrial fibrillation with rapid ventricular response I48.91 UTI (urinary tract infection) N39.0
--- NOTE | 2024-06-17 16:09 | Hospitalist Progress Note ---
Date of Service June 17, 2024 Assessment & Plan (1) Metabolic encephalopathy: Plan: Metabolic Encephalopathy - combination of hyponatremia, UTI both now treated and not improved - CT head without any acute ischemic changes, ?NPH - melatonin nightly, stop excelon - currently on seroquel BID, did have prn dose, consider increase night time dose -currently has a one to one (2) Acute hyponatremia: Plan: Acute hyponatremia: Resolved - due to desmopressin, currently discontinued - Na trended down slightly, he is on fluid restriction. trend at this time - nephrology recs appreciated -sodium at goal on 06/09 (3) Atrial fibrillation with rapid ventricular response: Plan: AFib with RVR - new onset (06/01/24) - HR appears controlled since 06/13 Elevated troponin suspected from demand ischemia - Cardiology recs appreciated: ECHO unremarkable, on low dose metoprolol, aspirin 81mg for now, MCOT 30 day monitor on discharge, f/u with cards after discharge - pt is also on therapeutic lovenox, but per discussion with cardiology, high risk for complications with initiation of DOAC on discharge, thus will not AC on discharge, further decision to be made once evaluated in cards office (4) UTI (urinary tract infection): Plan: Present on admission, associated with urinary retention UCx growing enterococcus, completed Ampicillin, last dose on 06/09 - likely due to immobility, zyprexa, straight caths - cont flomax -patient removed wallis traumatically on 06/13 pt with retention will resume wallis, ordered repeat urine Plan Gait disturbance: impacted by hip arthritis, ( also ? 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 / nutrition recs appreciated DVT ppx - lovenox subq disposition to snf once 1:1 is resolved Admission and Anticipated Discharge Date Admission Date: May 29, 2024 Subjective pt is confused and fidgety,CHIEF INFORMATION SECURITY OFFICER 1:1 is at bedside, did require additional seroquel last pm pre hospital notes did have a positive minicog screen 05/21, family feels has had a rapid decline no focal deficits, will attempt to minimize medications to help clear mental state as much as possible urinary retention did have wallis reinserted and urine culture re sent Physical Exam Physical Exam: aware, oriented x 1, cardiac is regular neuro, follows exam, folding sheet while talking, reaching out to me Results & Data Results & Data Vital Signs (Past 12 Hours) Vital Signs Temp Pulse Pulse Resp BP Pulse Ox O2 Del Method 06/17/24 14:59 97.5 F L 73 17 127/62 98 Room Air 06/17/24 14:20 69 06/17/24 11:16 98.1 F 84 19 127/62 98 Room Air 06/17/24 07:20 70 06/17/24 06:53 97.9 F 91 H 17 129/79 96 Room Air PG Care Time/CCT Total # of Minutes Spent Total Time Spent with Patient: Total time spent is greater than 50% in coordination of care (as documented) at patient's floor/unit and/or counseling patient: Coding Level of Care Code 92633 SUB INP/OBS CARE 2/35MIN Diagnoses Metabolic encephalopathy G93.41 Acute hyponatremia E87.1 Atrial fibrillation with rapid ventricular response I48.91 UTI (urinary tract infection) N39.0
[2024-06-17] MEDS: QUEtiapine FUMARATE 100 MG TABLET PO SCH (20:10)
[2024-06-18 10:22] LABS: Hematocrit (blood only) 30.7 % (42.0-52.0); Hemoglobin 10.7 g/dl (14.0-18.0); Mean Corpuscular Hemoglobin 32.5 pg (25.0-34.0); Mean Corpuscular Hgb Conc 34.9 g/dL (32.0-36.0); Mean Corpuscular Volume 93.3 fL (80.0-100.0); Mean Platelet Volume 8.8 fL (9.4-12.4); Platelet Count 376 K/uL (130-400); RDW Coefficient of Variation 12.7 % (11.5-14.5); RDW Standard Deviation 43.2 fL (36.4-46.3); Red Blood Count 3.29 M/uL (4.70-6.10); White Blood Count 7.33 K/ul (4.8-10.8)
[2024-06-18] MEDS: THIAMINE HCL 500 MG in SODIUM CHLORIDE 0.9% 50 ML IV ONE (10:42)
[2024-06-18 10:43] LABS: Albumin Globulin Ratio 1.5 (0.9-2); Albumin Level 3.5 gm/dl (3.4-5.0); BUN Creatinine Ratio 33.9 (10-20); Bilirubin,Total 0.4 mg/dl (0.2-1.0); Calcium 8.3 mg/dl (8.6-10.3); Creatinine Clr Calc Pharmacy 75.4 ml/min; Est GFR (African American) 109.3 ml/min; Est GFR (Non-African American) 94.3 ml/min; Globulin 2.3 gm/dl (2.5-4.0); Total Protein 5.8 gm/dl (6.0-8.3)
[2024-06-18] MEDS: cefTRIAXone SODIUM 2,000 MG/50 ML BAG IV SCH (16:43)
[2024-06-18] MEDS ORDERED: STAT IV/IM STA (18:10)
--- NOTE | 2024-06-18 18:13 | Hospitalist Progress Note ---
Date of Service June 18, 2024 Assessment & Plan (1) Metabolic encephalopathy: Plan: Metabolic Encephalopathy - combination of hyponatremia, UTI now treated and not improved Remains with persistent hyponatremia in the 130 range we will try dose of 3% hypertonic saline in the evening rechecking in the morning. - CT head without any acute ischemic changes, - melatonin nightly, stop excelon -Increase at bedtime dose of Seroquel reducing daytime dose did improve sleep. Did institute thiamine therapy without much help Given the urinary retention patient put on short course of ceftriaxone at this time urine cultures polymicrobial -currently has a one to one (2) Acute hyponatremia: Plan: Acute hyponatremia: Chronically low will try 1 dose of hypertonic saline - due to desmopressin, currently discontinued - Na trended down slightly, he is on fluid restriction. - nephrology recs appreciated -sodium at goal on 06/09 of 132 without much clinical improvement he is now slipp ing back down to 130 (3) Atrial fibrillation with rapid ventricular response: Plan: AFib with RVR - new onset (06/01/24) - HR appears controlled since 06/13 Elevated troponin suspected from demand ischemia - Cardiology recs appreciated: ECHO unremarkable, on low dose metoprolol, aspirin 81mg for now, MCOT 30 day monitor on discharge, f/u with cards after discharge - pt is also on therapeutic lovenox, but per discussion with cardiology, high risk for complications with initiation of DOAC on discharge, thus will not AC on discharge, further decision to be made once evaluated in cards office (4) UTI (urinary tract infection): Plan: Present on admission, associated with urinary retention UCx growing enterococcus, completed Ampicillin, last dose on 06/09 - likely due to immobility, zyprexa, straight caths - cont flomax -patient removed wallis traumatically on 06/13 pt with retention will resume wallis, ordered repeat urine polymicrobial results on ceftriaxone Plan Gait disturbance: impacted by hip arthritis, ( also ? NPH) Per PCP note taking daily or every other day methylprednisolone for this which has improved his hip and lumbar spine pain - PT/OT recs rehab, however wants to take pt home - CM consulted to assist with d/c planning Malnutrition, Underweight, BMI < 19 Aspiration risk - bedside swallow 06/02: puree diet, aspiration precautions, alternate solids and liquids - ARCHITECT INTERNSHIP / nutrition recs appreciated DVT ppx - lovenox subq Disposition and question family may consider taking home likely would be a difficult patient to care for at home Admission and Anticipated Discharge Date Admission Date: May 29, 2024 Subjective Patient had dose of Seroquel increased on the evening of 06 17- 11. Patient is improved today had less sundowning issues overnight. He is slightly sedate and will decrease the morning dose of Seroquel subsequent to this He was having some urinary retention additional urine was sent however it is polymicrobial he was started on prophylactic antibiotics at this point in time He remains on thiamine to try to improve any thiamine deficiency that could be causing his confusion Family is continue to be interested in taking the patient home he will be a extremely difficult patient to care for as he has a limited ambulatory abilities and needs redirected quite frequently Physical Exam Physical Exam: aware, oriented x 1, cardiac is regular neuro, follows exam, seems less fidgety at this time Results & Data Results & Data Vital Signs (Past 12 Hours) Vital Signs Temp Pulse Pulse Resp BP Pulse Ox O2 Del Method 06/18/24 12:39 98.4 F 75 18 122/71 98 Room Air 06/18/24 08:57 97.5 F L 97 H 18 134/67 97 Room Air 06/18/24 08:22 97 H Laboratory Results Reviewed CBC reviewed chemistry PG Care Time/CCT Total # of Minutes Spent Total Time Spent with Patient: Total time spent is greater than 50% in coordination of care (as documented) at patient's floor/unit and/or counseling patient: Coding Level of Care Code 56456 SUB INP/OBS CARE 3/50MIN Diagnoses Metabolic encephalopathy G93.41 Acute hyponatremia E87.1 Atrial fibrillation with rapid ventricular response I48.91 UTI (urinary tract infection) N39.0
[2024-06-18] MEDS: SODIUM CHLORIDE 3 % 100 ML IV ONE (18:41)
[2024-06-19 06:28] LABS: BUN Creatinine Ratio 30.6 (10-20); Calcium 8.7 mg/dl (8.6-10.3); Creatinine Clr Calc Pharmacy 69.4 ml/min; Est GFR (African American) 104.8 ml/min; Est GFR (Non-African American) 90.5 ml/min; Potassium 4.1 mmol/L (3.5-5.1)
[2024-06-19] MEDS: SODIUM CHLORIDE 1 GM TABLET PO SCH (09:30)
--- NOTE | 2024-06-19 16:49 | Hospitalist Progress Note ---
Date of Service June 19, 2024 Assessment & Plan (1) Metabolic encephalopathy: Plan: Metabolic Encephalopathy - combination of hyponatremia, UTI now treated and not improved Remains with persistent hyponatremia in the 130 range we will try dose of 3% hypertonic saline in the evening rechecking in the morning. - CT head without any acute ischemic changes, - melatonin nightly, stopped excelon -Increase at bedtime dose of Seroquel reducing daytime dose did improve sleep. Did institute thiamine therapy without much help Given the urinary retention patient put on short course of ceftriaxone at this time urine cultures polymicrobial -currently has a one to one (2) Acute hyponatremia: Plan: Acute hyponatremia: Chronically low will try 1 dose of hypertonic saline - due to desmopressin, currently discontinued - Na trended down slightly, he is on fluid restriction. - nephrology recs appreciated -sodium was again improved with hypertonic saline instituting oral salt tablets 1 g twice daily (3) Atrial fibrillation with rapid ventricular response: Plan: AFib with RVR - new onset (06/01/24) - HR appears controlled since 06/13 Elevated troponin suspected from demand ischemia - Cardiology recs appreciated: ECHO unremarkable, on low dose metoprolol, aspirin 81mg for now, MCOT 30 day monitor on discharge, f/u with cards after discharge - pt is also on therapeutic lovenox, but per discussion with cardiology, high risk for complications with initiation of DOAC on discharge, thus will not AC on discharge, further decision to be made once evaluated in cards office (4) UTI (urinary tract infection): Plan: Present on admission, associated with urinary retention UCx growing enterococcus, completed Ampicillin, last dose on 06/09 - likely due to immobility, zyprexa, straight caths - cont flomax -patient removed wallis traumatically on 06/13 pt with retention will resume wallis, ordered repeat urine polymicrobial results on ceftriaxone Plan Gait disturbance: impacted by hip arthritis, ( also ? NPH) Per PCP note taking daily or every other day methylprednisolone for this which has improved his hip and lumbar spine pain - PT/OT recs rehab, however wants to take pt home - CM consulted to assist with d/c planning considering home with home health services in the short-term future Malnutrition, Underweight, BMI < 19 Aspiration risk - bedside swallow 06/02: puree diet, aspiration precautions, alternate solids and liquids - BOXCAR WEIGHER / nutrition recs appreciated DVT ppx - lovenox subq Disposition and question family may consider taking home likely would be a difficult patient to care for at home Admission and Anticipated Discharge Date Admission Date: May 29, 2024 Subjective Patient slightly improved today sentiment come up with hypertonic saline instituting oral salt tablets. Family meeting with the son and care case management will try to determine disposition hopefully next few days. Family still interested in taking home are weighing the benefits of home health versus hospice therapy at this time Patient continues to but did not have any significant angry outbursts Physical Exam Physical Exam: aware, oriented x 1, cardiac is regular neuro, follows exam, has not had any issues not having daytime Seroquel therapy Results & Data Results & Data Vital Signs (Past 12 Hours) Vital Signs Temp Pulse Resp BP BP Pulse Ox O2 Del Method 06/19/24 11:26 97.7 F 72 16 123/71 96 Room Air 06/19/24 09:29 97.7 F 72 18 148/69 H 96 Room Air Laboratory Results Reviewed chemistry PG Care Time/CCT Total # of Minutes Spent Total Time Spent with Patient: Total time spent is greater than 50% in coordination of care (as documented) at patient's floor/unit and/or counseling patient: Coding Level of Care Code 02381 SUB INP/OBS CARE 3/50MIN Diagnoses Metabolic encephalopathy G93.41 Acute hyponatremia E87.1 Atrial fibrillation with rapid ventricular response I48.91 UTI (urinary tract infection) N39.0
[2024-06-20 06:20] LABS: BUN Creatinine Ratio 28.8 (10-20); Calcium 8.9 mg/dl (8.6-10.3); Creatinine Clr Calc Pharmacy 70.6 ml/min; Est GFR (Non-African American) 92.3 ml/min; Potassium 4.2 mmol/L (3.5-5.1)
[2024-06-20] MEDS ORDERED: STAT IV/IM STA ×2 (08:07→18:14)
[2024-06-20] MEDS: SODIUM CHLORIDE 3 % 100 ML IV ONE ×2 (08:54→19:10)
--- NOTE | 2024-06-20 12:43 | Hospitalist Progress Note ---
Date of Service June 20, 2024 Assessment & Plan (1) Metabolic encephalopathy: Plan: Metabolic Encephalopathy - combination of hyponatremia, UTI now treated and not improved Remains with persistent hyponatremia in the 130 range we will try dose of 3% hypertonic saline in the evening rechecking in the morning. - CT head without any acute ischemic changes, - melatonin nightly, stopped excelon -Increase at bedtime dose of Seroquel reducing daytime dose did improve sleep. Did institute thiamine therapy without much help Given the urinary retention patient put on short course of ceftriaxone at this time urine cultures polymicrobial -removed one to one 06/20/24 (2) Acute hyponatremia: Plan: Acute hyponatremia: Chronically low, 1 dose of hypertonic saline 06/20/24 - desmopressin discontinued - Na trended down slightly, he is on fluid restriction. - nephrology recs appreciated - instituting oral salt tablets 1 g twice daily (3) Atrial fibrillation with rapid ventricular response: Plan: AFib with RVR - new onset (06/01/24) - HR appears controlled since 06/13 Elevated troponin suspected from demand ischemia - Cardiology recs appreciated: ECHO unremarkable, on low dose metoprolol, aspirin 81mg for now, MCOT 30 day monitor on discharge, f/u with cards after discharge - pt is also on therapeutic lovenox, but per discussion with cardiology, high risk for complications with initiation of DOAC on discharge, thus will not AC on discharge, further decision to be made once evaluated in cards office (4) UTI (urinary tract infection): Plan: Present on admission, associated with urinary retention UCx growing enterococcus, completed Ampicillin, last dose on 06/09 - likely due to immobility, zyprexa, straight caths - cont flomax -patient removed wallis traumatically on 06/13 pt with retention will resume wallis, ordered repeat urine polymicrobial results on ceftriaxone Plan Gait disturbance: impacted by hip arthritis, ( also ? 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 Family still interested in taking home are weighing the benefits of home health versus hospice therapy at this time Patient continues to but did not have any significant angry outbursts Physical Exam Physical Exam: aware, oriented x 1, cardiac is regular neuro, follows exam, has not had any issues not having daytime Seroquel therapy Results & Data Results & Data Vital Signs (Past 12 Hours) Vital Signs Temp Pulse Resp BP Pulse Ox O2 Del Method 06/20/24 10:24 Room Air 06/20/24 07:55 97.5 F L 75 18 117/67 99 Room Air Laboratory Results review chemistry ordered repeat PG Care Time/CCT Total # of Minutes Spent Total Time Spent with Patient: Total time spent is greater than 50% in coordination of care (as documented) at patient's floor/unit and/or counseling patient: Coding Level of Care Code 91394 SUB INP/OBS CARE 2/35MIN Diagnoses Metabolic encephalopathy G93.41 Acute hyponatremia E87.1 Atrial fibrillation with rapid ventricular response I48.91 UTI (urinary tract infection) N39.0
[2024-06-20 13:26] LABS: BUN Creatinine Ratio 35.1 (10-20); Calcium 8.7 mg/dl (8.6-10.3); Est GFR (African American) 108.5 ml/min; Est GFR (Non-African American) 93.6 ml/min; Potassium 4.5 mmol/L (3.5-5.1)
[2024-06-21 08:38] LABS: Calcium 8.7 mg/dl (8.6-10.3); Potassium 4.4 mmol/L (3.5-5.1)
[2024-06-21 08:43] LABS: BUN Creatinine Ratio 35.7 (10-20); Creatinine Clr Calc Pharmacy 75.8 ml/min; Est GFR (African American) 109.3 ml/min; Est GFR (Non-African American) 94.3 ml/min
--- NOTE | 2024-06-21 13:11 | Hospitalist Progress Note ---
Date of Service June 21, 2024 Assessment & Plan (1) Metabolic encephalopathy: Plan: Metabolic Encephalopathy - combination of hyponatremia, UTI now treated and not improved Remains with persistent hyponatremia in the 130 range continue to use 3% hypertonic saline with po salt tablets - CT head without any acute ischemic changes, - melatonin nightly, stopped excelon -Increase at bedtime dose of Seroquel reducing daytime dose did improve sleep. Did institute thiamine therapy without much help Given the urinary retention patient put on short course of ceftriaxone at this time urine cultures polymicrobial -removed one to one 06/20/24 (2) Acute hyponatremia: Plan: Acute hyponatremia: Chronically low, - desmopressin discontinued - Na trended down slightly, he is on fluid restriction. - nephrology recs appreciated - instituting oral salt tablets 1 g twice daily (3) Atrial fibrillation with rapid ventricular response: Plan: AFib with RVR - new onset (06/01/24) - HR appears controlled since 06/13 Elevated troponin suspected from demand ischemia - Cardiology recs appreciated: ECHO unremarkable, on low dose metoprolol, aspirin 81mg for now, MCOT 30 day monitor on discharge, f/u with cards after discharge - pt is also on therapeutic lovenox, but per discussion with cardiology, high risk for complications with initiation of DOAC on discharge, thus will not AC on discharge, further decision to be made once evaluated in cards office (4) UTI (urinary tract infection): Plan: Present on admission, associated with urinary retention UCx growing enterococcus, completed Ampicillin, last dose on 06/09 - likely due to immobility, zyprexa, straight caths - cont flomax -patient removed wallis traumatically on 06/13 pt with retention will resume wallis, ordered repeat urine polymicrobial results on ceftriaxone Plan Gait disturbance: impacted by hip arthritis, ( also ? 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 Family still interested in taking home are weighing the benefits of home health versus hospice therapy at this time Patient continues to but did not have any significant angry outbursts Physical Exam Physical Exam: aware, oriented x 1, cardiac is regular neuro, follows exam, has not had any issues not having daytime Seroquel therapy Results & Data Results & Data Vital Signs (Past 12 Hours) Vital Signs Temp Pulse Resp BP BP Pulse Ox O2 Del Method 06/21/24 10:43 98.2 F 85 16 147/57 H 100 Room Air 06/21/24 09:30 Room Air 06/21/24 06:14 97.7 F 80 18 149/70 H 99 Room Air PG Care Time/CCT Total # of Minutes Spent Total Time Spent with Patient: Total time spent is greater than 50% in coordination of care (as documented) at patient's floor/unit and/or counseling patient: Coding Level of Care Code 98732 SUB INP/OBS CARE 1/25MIN Diagnoses Metabolic encephalopathy G93.41 Acute hyponatremia E87.1 Atrial fibrillation with rapid ventricular response I48.91 UTI (urinary tract infection) N39.0
[2024-06-22 09:51] LABS: BUN Creatinine Ratio 30.2 (10-20); Calcium 8.4 mg/dl (8.6-10.3); Creatinine Clr Calc Pharmacy 68.9 ml/min; Est GFR (African American) 104.1 ml/min; Est GFR (Non-African American) 89.9 ml/min; Potassium 4.4 mmol/L (3.5-5.1)
--- NOTE | 2024-06-22 16:34 | Hospitalist Progress Note ---
Date of Service June 22, 2024 Assessment & Plan (1) Metabolic encephalopathy: Plan: Metabolic Encephalopathy - combination of hyponatremia, UTI now treated and not improved Remains with persistent hyponatremia in the 130 range, not much improvement with 3% saline or bid salt tablets - CT head without any acute ischemic changes, - melatonin nightly, stopped excelon -Increase at bedtime dose of Seroquel reducing daytime dose did improve sleep. Did institute thiamine therapy Given the urinary retention patient put on short course (3d)of ceftriaxone at this time urine cultures polymicrobial -removed one to one 06/20/24 (2) Acute hyponatremia: Plan: Acute hyponatremia: Chronically low, - desmopressin discontinued - nephrology recs appreciated - instituting oral salt tablets 1 g twice daily (3) Atrial fibrillation with rapid ventricular response: Plan: AFib with RVR - new onset (06/01/24) - HR appears controlled since 06/13 Elevated troponin suspected from demand ischemia - Cardiology recs appreciated: ECHO unremarkable, on low dose metoprolol, aspirin 81mg for now, MCOT 30 day monitor on discharge, f/u with cards after discharge - pt is also on therapeutic lovenox, but per discussion with cardiology, high risk for complications with initiation of DOAC on discharge, thus will not AC on discharge, further decision to be made once evaluated in cards office (4) UTI (urinary tract infection): Plan: Present on admission, associated with urinary retention UCx growing enterococcus, completed Ampicillin, last dose on 06/09 - likely due to immobility, zyprexa, straight caths - cont flomax -patient removed wallis traumatically on 06/13 pt with retention will resume wallis, ordered repeat urine polymicrobial results on ceftriaxone x 3 d Plan Gait disturbance: impacted by hip arthritis, ( also ? NPH) Per PCP note taking daily or every other day methylprednisolone for this which has improved his hip and lumbar spine pain - PT/OT recs rehab, however wants to take pt home - CM consulted to assist with d/c planning considering home with home health services in the short-term future Malnutrition, Underweight, BMI < 19 Aspiration risk - bedside swallow 06/02: puree diet, aspiration precautions, alternate solids and liquids - BUTTONHOLE MAKER HAND / nutrition recs appreciated DVT ppx - lovenox subq Disposition and question family trying to arrange home transition may consider hospice Admission and Anticipated Discharge Date Admission Date: May 29, 2024 Subjective Patient about the same, significant baseline memory loss and behavior in need of redirection Family meeting with the son and care case management will try to determine disposition hopefully next few days. Family still interested in taking home are weighing the benefits of home health versus hospice therapy at this time Patient continues to but did not have any significant angry outbursts Physical Exam Physical Exam: aware, oriented x 1, cardiac is regular neuro, follows exam, has not had any issues without having daytime Seroquel therapy Results & Data Results & Data Vital Signs (Past 12 Hours) Vital Signs Temp Pulse Resp BP Pulse Ox O2 Del Method 06/22/24 12:03 Room Air 06/22/24 11:21 98.2 F 85 18 120/69 98 Room Air Laboratory Results review chemistry PG Care Time/CCT Total # of Minutes Spent Total Time Spent with Patient: Total time spent is greater than 50% in coordination of care (as documented) at patient's floor/unit and/or counseling patient: Coding Level of Care Code 22072 SUB INP/OBS CARE 2/35MIN Diagnoses Metabolic encephalopathy G93.41 Acute hyponatremia E87.1 Atrial fibrillation with rapid ventricular response I48.91 UTI (urinary tract infection) N39.0
[2024-06-23 04:49] LABS: BUN Creatinine Ratio 33.3 (10-20); Creatinine Clr Calc Pharmacy 76.1 ml/min; Est GFR (African American) 108.5 ml/min; Est GFR (Non-African American) 93.6 ml/min; Potassium 3.9 mmol/L (3.5-5.1)
--- NOTE | 2024-06-23 15:32 | Hospitalist Progress Note ---
Date of Service June 23, 2024 Assessment & Plan (1) Metabolic encephalopathy: Plan: Metabolic Encephalopathy - combination of hyponatremia, UTI now treated and not improved Remains with persistent hyponatremia in the 130 range, not much improvement with 3% saline or bid salt tablets - CT head without any acute ischemic changes, - melatonin nightly, stopped excelon -Increase at bedtime dose of Seroquel reducing daytime dose did improve sleep. Did institute thiamine therapy Given the urinary retention patient put on short course (3d)of ceftriaxone at this time urine cultures polymicrobial -removed one to one 06/20/24 (2) Acute hyponatremia: Plan: Acute hyponatremia: Chronically low, - desmopressin discontinued - nephrology recs appreciated - instituting oral salt tablets 1 g twice daily (3) Atrial fibrillation with rapid ventricular response: Plan: AFib with RVR - new onset (06/01/24) - HR appears controlled since 06/13 Elevated troponin suspected from demand ischemia - Cardiology recs appreciated: ECHO unremarkable, on low dose metoprolol, aspirin 81mg for now, MCOT 30 day monitor on discharge, f/u with cards after discharge - pt is also on therapeutic lovenox, but per discussion with cardiology, high risk for complications with initiation of DOAC on discharge, thus will not AC on discharge, further decision to be made once evaluated in cards office (4) UTI (urinary tract infection): Plan: Present on admission, associated with urinary retention UCx growing enterococcus, completed Ampicillin, last dose on 06/09 - likely due to immobility, zyprexa, straight caths - cont flomax -patient removed wallis traumatically on 06/13 pt with retention will resume wallis, ordered repeat urine polymicrobial results on ceftriaxone x 3 d Plan Gait disturbance: impacted by hip arthritis, ( also ? 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 Family still interested in taking home are weighing the benefits of home health versus hospice therapy at this time Patient continues to but did not have any significant angry outbursts Physical Exam Physical Exam: aware, oriented x 1, cardiac is regular neuro, follows exam, has not had any issues without having daytime Seroquel therapy Results & Data Results & Data Vital Signs (Past 12 Hours) Vital Signs Temp Pulse Resp BP Pulse Ox O2 Del Method 06/23/24 09:36 Room Air 06/23/24 07:54 97.3 F L 77 16 132/74 99 Room Air Laboratory Results review chemistry PG Care Time/CCT Total # of Minutes Spent Total Time Spent with Patient: Total time spent is greater than 50% in coordination of care (as documented) at patient's floor/unit and/or counseling patient: Coding Level of Care Code 10821 SUB INP/OBS CARE 2/35MIN Diagnoses Metabolic encephalopathy G93.41 Acute hyponatremia E87.1 Atrial fibrillation with rapid ventricular response I48.91 UTI (urinary tract infection) N39.0
--- NOTE | 2024-06-24 13:21 | Hospitalist Progress Note ---
Date of Service June 24, 2024 Assessment & Plan (1) Metabolic encephalopathy: Plan: Metabolic Encephalopathy - combination of hyponatremia, UTI now treated and not improved Remains with persistent hyponatremia in the 130 range, not much improvement with 3% saline or bid salt tablets and fluid restriction - CT head without any acute ischemic changes, - melatonin nightly, stopped excelon -Increase at bedtime dose of Seroquel reducing daytime dose did improve sleep. Did institute thiamine therapy Patient has been off one-to-one since 06/20/2024 (2) Acute hyponatremia: Plan: Acute hyponatremia: Chronically low, - desmopressin discontinued - nephrology recs appreciated - instituting oral salt tablets 1 g twice daily (3) Atrial fibrillation with rapid ventricular response: Plan: AFib with RVR - new onset (06/01/24) - HR appears controlled since 06/13 Elevated troponin suspected from demand ischemia - Cardiology recs appreciated: ECHO unremarkable, on low dose metoprolol, aspirin 81mg for now, MCOT 30 day monitor on discharge, f/u with cards after discharge - pt is also on therapeutic lovenox, but per discussion with cardiology, high risk for complications with initiation of DOAC on discharge, thus will not AC on discharge, further decision to be made once evaluated in cards office (4) UTI (urinary tract infection): Plan: Present on admission, associated with urinary retention UCx growing enterococcus, completed Ampicillin, last dose on 06/09 - likely due to immobility, zyprexa, straight caths - cont flomax Patient pulled out his Solorzano catheter on 06/13/2024 Urology has advised against reinserting Solorzano catheters Remove Solorzano catheter Patient has been treated with short course of IV ceftriaxone for 3 days from 06/18/2024 to 06/20/2024 As per urology, if needed patient should get straight cath for urinary retention Plan Gait disturbance: impacted by hip arthritis, ( also ? 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 He is trying to tug at his Solorzano catheter. As per nursing staff, he needs assistance with feeding He is currently not on one-to-one Patient appears confused and unable to get a full review of systems. Review of Systems Review of Systems: As per HPI Physical Exam Physical Exam: General: No acute distress Psych: Awake and oriented to self HEENT: Anicteric sclera, moist oral mucosa CVS: Regular rate and rhythm Lungs: Bilateral air entry, no wheezing noted Abdomen: Soft, nontender, no rebound, no guarding Ext: No lower extremity edema, no calf tenderness : Solorzano catheter in place Results & Data Results & Data Vital Signs (Past 12 Hours) Vital Signs Temp Pulse Resp BP Pulse Ox O2 Del Method 06/24/24 12:20 Room Air 06/24/24 07:50 36.5 C 75 18 138/72 100 Room Air PG Care Time/CCT Total # of Minutes Spent Total Time Spent with Patient: Total time spent is greater than 50% in coordination of care (as documented) at patient's floor/unit and/or counseling patient: Coding Level of Care Code 07522 SUB INP/OBS CARE 2/35MIN Diagnoses Metabolic encephalopathy G93.41 Acute hyponatremia E87.1 Atrial fibrillation with rapid ventricular response I48.91 UTI (urinary tract infection) N39.0 Time Spent (min) 36
[2024-06-25 08:35] LABS: Basophils # (auto) 0.02 K/uL (0.00-0.20); Basophils % (auto) 0.4 %; Eosinophils % (auto) 1.9 %; Hematocrit (blood only) 33.2 % (42.0-52.0); Hemoglobin 11.6 g/dl (14.0-18.0); Immature Granulocytes # (auto) 0.06 K/uL (0.01-0.20); Immature Granulocytes % (auto) 1.1 %; Lymphocytes # (auto) 1.21 K/uL (1.20-3.40); Lymphocytes % (auto) 22.7 %; Mean Corpuscular Hemoglobin 32.3 pg (25.0-34.0); Mean Corpuscular Hgb Conc 34.9 g/dL (32.0-36.0); Mean Corpuscular Volume 92.5 fL (80.0-100.0); Mean Platelet Volume 8.9 fL (9.4-12.4); Monocytes # (auto) 0.47 K/uL (0.11-0.59); Monocytes % (auto) 8.8 %; Neutrophils # (auto) 3.48 K/uL (1.40-6.50); Neutrophils % (auto) 65.1 %; Platelet Count 369 K/uL (130-400); RDW Coefficient of Variation 12.9 % (11.5-14.5); RDW Standard Deviation 43.4 fL (36.4-46.3); Red Blood Count 3.59 M/uL (4.70-6.10); White Blood Count 5.34 K/ul (4.8-10.8)
[2024-06-25 08:50] LABS: BUN Creatinine Ratio 49.2 (10-20); Creatinine Clr Calc Pharmacy 66.2 ml/min; Est GFR (African American) 104.1 ml/min; Est GFR (Non-African American) 89.9 ml/min; Magnesium 2.1 mg/dl (1.7-2.4); Potassium 4.8 mmol/L (3.5-5.1)
[2024-06-25 09:00] LABS: Thyroid Stimulating Hormone 1.423 uIu/ml (0.300-4.500)
--- NOTE | 2024-06-25 11:01 | Hospitalist Progress Note ---
Date of Service June 25, 2024 Assessment & Plan (1) Metabolic encephalopathy: (2) Dementia: (3) Atrial fibrillation with rapid ventricular response: Plan: Patient was seen by cardiology (4) UTI (urinary tract infection): (5) Hyponatremia: (6) Multifactorial gait disorder: Plan 84-year-old male with past medical history of chronic hyponatremia, osteoarthritis presented to the ED with generalized weakness, multiple falls and inability to walk. He was recently started on desmopressin for nocturia at 0.6 mg daily on 05/21/2024 and was noted to have a sodium of 116 in the emergency room. #Metabolic encephalopathy #Dementia Encephalopathy likely multifactorial given underlying dementia, hyponatremia and UTI Patient appears to be at his baseline mentation He has been treated for UTI with no major change in his mentation B12 is 765 TSH is 1.[address] without any acute ischemic changes - melatonin nightly, stopped excelon -Increase at bedtime dose of Seroquel reducing daytime dose did improve sleep. Continue thiamine therapy Patient has been off one-to-one since 06/20/2024 #Hyponatremia Patient does have chronic hyponatremia with a sodium around 130s He was treated with 3% saline and also salt tabs and fluid restriction Nephrology saw the patient during hospital stay Continue salt tabs 1 g twice daily Desmopressin has been discontinued Sodium levels are stable #Urinary tract infection with urinary retention, present on admission Urine culture initially grew Enterococcus and he was initially treated with IV ampicillin with last dose on 06/09/2024 Patient had a Solorzano catheter which he pulled out initially on 06/13/2024 and a new Solorzano catheter was placed Urology has advised against inserting Solorzano catheters Solorzano catheter was removed on 06/24/2024 Patient was also treated with short course of IV ceftriaxone for 3 days from 06/18/2024 to 06/20/2024 Continue Flomax As per urology, if needed patient should get straight cath for urinary retention Patient had some hematuria post Solorzano catheter removal Patient is on Lovenox and will stop therapeutic Lovenox at this point Urine analysis is pending Patient is afebrile and white count is normal #Atrial fibrillation with RVR #Elevated troponin New onset on 06/01/2024 Heart rate appears to be controlled since 06/13/2024 Elevated troponin suspected from demand ischemia Cardiology saw the patient (Dr. Rosa Bearden) Echo showed Continue Toprol-XL 25 mg p.o. daily Cardiology recommended continuing beta-payton for A-fib prevention and cardio logist stated that they are reluctant to start NOAC given current mental status issues and cardiology plans on doing outpatient monitoring for surveillance. Will have patient follow-up with cardiology as outpatient for evaluation for NOAC Given hematuria issues at this point, will stop Lovenox therapeutic dose #Gait disturbance #Frequent falls #Hip arthritis PT/OT saw the patient recommended rehab however wants to take him home with home health The patient has a medical condition which requires positioning of the body in ways not feasible with ordinary bed, given his frequent falls with hip arthritis and gait disturbance, patient will benefit from a hospital bed which will also help alleviate arthritic pain. Patient is also high risk for aspiration given his mentation issues and would benefit from hospital bed CODE STATUS: Full code DVT prophylaxis: Switch from therapeutic Lovenox to Lovenox 40 mg subcutaneous daily for DVT prophylaxis Discharge planning Home with home health likely in the next 24 hours when hospital bed available Admission and Anticipated Discharge Date Admission Date: May 29, 2024 Subjective Patient appears comfortable, Solorzano catheter was removed yesterday Nursing staff noted some blood overnight Physical Exam Physical Exam: General: No acute distress Psych: Awake and oriented to self HEENT: Anicteric sclera, moist oral mucosa CVS: Regular rate and rhythm Lungs: Bilateral air entry, no wheezing noted Abdomen: Soft, nontender, no rebound, no guarding Ext: No lower extremity edema, no calf tenderness Results & Data Results & Data Vital Signs (Past 12 Hours) Vital Signs Temp Pulse Resp BP Pulse Ox O2 Del Method 06/25/24 07:55 36.4 C 79 16 123/63 98 Room Air 06/25/24 07:23 Room Air 06/25/24 05:00 36.7 C 81 16 133/64 98 Room Air Laboratory Results Laboratory Results - last 24 hr 06/25/24 06/25/24 08:11 14:50 WBC 5.34 RBC 3.59 L Hgb 11.6 L Hct 33.2 L MCV 92.5 MCH 32.3 MCHC 34.9 RDW Std Deviation 43.4 RDW Coeff of Elisa 12.9 Plt Count 369 MPV 8.9 L Immature Gran % (Auto) 1.1 Neut % (Auto) 65.1 Lymph % (Auto) 22.7 Hardy % (Auto) 8.8 Eos % (Auto) 1.9 Baso % (Auto) 0.4 Neut # (Auto) 3.48 Lymph # (Auto) 1.21 Hardy # (Auto) 0.47 Eos # (Auto) 0.10 Baso # (Auto) 0.02 Immature Gran # (Auto) 0.06 Sodium 134 L Potassium 4.8 Chloride 100 Carbon Dioxide 30 Anion Gap 4 BUN 31 H Creatinine 0.63 Est Cr Clr Drug Dosing 66.2 Est GFR ( Amer) 104.1 Est GFR (Non-Af Amer) 89.9 BUN/Creatinine Ratio 49.2 H Glucose 119 H Calcium 9.0 Magnesium 2.1 Vitamin B12 765 TSH 1.423 Urine Color Pending Urine Appearance Pending Urine pH Pending Ur Specific [place] Pending Urine Protein Pending Urine Glucose (UA) Pending Urine Ketones Pending Urine Blood Pending Urine Nitrite Pending Urine Bilirubin Pending Urine Urobilinogen Pending Ur Leukocyte Esterase Pending PG Care Time/CCT Total # of Minutes Spent Total Time Spent with Patient: Total time spent is greater than 50% in coordination of care (as documented) at patient's floor/unit and/or counseling patient: Coding Level of Care Code 71308 SUB INP/OBS CARE 2/35MIN Diagnoses Metabolic encephalopathy G93.41 Dementia F03.90 Atrial fibrillation with rapid ventricular response I48.91 UTI (urinary tract infection) N39.0 Hyponatremia E87.1 Multifactorial gait disorder R26.89
[2024-06-25 16:33] LABS: Appearance Urine Cloudy (Clear); Bilirubin Urine Negative (Negative); Blood Urine 3+ (Negative); Color Urine Red; Glucose Urine UA Negative (Negative); Ketones Urine Negative (Negative); Leukocyte Esterase Urine Negative (Negative); Nitrite Urine Negative (Negative); Protein Urine 2+ (Negative); Specific Gravity Urine >= 1.030 (1.000-1.030); Urobilinogen Urine Negative (Negative)
[2024-06-25 17:12] LABS: Bacteria Urine None Seen (None Seen); Epithelial Cell Urine 0-2 /hpf (0-2); RBC Urine >20 /hpf (0-2); WBC Urine 0-5 /hpf (0-5)
[2024-06-26] MEDS: ENOXAPARIN INJ 40 MG/0.4 ML SYR SQ SCH (10:33)
--- NOTE | 2024-06-26 12:14 | Hospitalist Progress Note ---
Date of Service June 26, 2024 Assessment & Plan (1) Metabolic encephalopathy: (2) Dementia: (3) Atrial fibrillation with rapid ventricular response: Plan: Patient was seen by cardiology (4) UTI (urinary tract infection): (5) Hyponatremia: (6) Multifactorial gait disorder: Plan 84-year-old male with past medical history of chronic hyponatremia, osteoarthritis presented to the ED with generalized weakness, multiple falls and inability to walk. He was recently started on desmopressin for nocturia at 0.6 mg daily on 05/21/2024 and was noted to have a sodium of 116 in the emergency room. #Metabolic encephalopathy #Dementia Encephalopathy likely multifactorial given underlying dementia, hyponatremia and UTI Patient appears to be at his baseline mentation He has been treated for UTI with no major change in his mentation B12 is 765 TSH is 1.[address] without any acute ischemic changes - melatonin nightly, stopped excelon -Increase at bedtime dose of Seroquel reducing daytime dose did improve sleep. Continue thiamine therapy Patient has been off one-to-one since 06/20/2024 #Hyponatremia Patient does have chronic hyponatremia with a sodium around 130s He was treated with 3% saline and also salt tabs and fluid restriction Nephrology saw the patient during hospital stay Continue salt tabs 1 g twice daily Desmopressin has been discontinued Sodium levels are stable #Urinary tract infection with urinary retention, present on admission Urine culture initially grew Enterococcus and he was initially treated with IV ampicillin with last dose on 06/09/2024 Patient had a Solorzano catheter which he pulled out initially on 06/13/2024 and a new Solorzano catheter was placed Urology has advised against inserting Solorzano catheters Solorzano catheter was removed on 06/24/2024 Patient was also treated with short course of IV ceftriaxone for 3 days from 06/18/2024 to 06/20/2024 Continue Flomax As per urology, if needed patient should get straight cath for urinary retention Patient is afebrile and white count is normal #Atrial fibrillation with RVR #Elevated troponin New onset on 06/01/2024 Heart rate appears to be controlled since 06/13/2024 Elevated troponin suspected from demand ischemia Cardiology saw the patient (Dr. Rosa Bearden) Echo showed Continue Toprol-XL 25 mg p.o. daily Cardiology recommended continuing beta-payton for A-fib prevention and director trust stated that they are reluctant to start NOAC given current mental status issues and cardiology plans on doing outpatient monitoring for surveill ance. Will have patient follow-up with cardiology as outpatient for evaluation for NOAC #Gait disturbance #Frequent falls #Hip arthritis PT/OT saw the patient recommended rehab however wants to take him home with home health The patient has a medical condition which requires positioning of the body in ways not feasible with ordinary bed, given his frequent falls with hip arthritis and gait disturbance, patient will benefit from a hospital bed which will also help alleviate arthritic pain. Patient is also high risk for aspiration given his mentation issues and would benefit from hospital bed CODE STATUS: Full code DVT prophylaxis: Lovenox 40 mg subcutaneous daily Discharge planning Home with home health likely in the next 24 hours when hospital bed available: Patient is medically stable for discharge Admission and Anticipated Discharge Date Admission Date: May 29, 2024 Subjective Patient appears comfortable, patient is oriented to self only and unable to get a full review of systems No overnight events noted Review of Systems Review of Systems: As per HPI Physical Exam Physical Exam: General: No acute distress Psych: Awake and oriented to self HEENT: Anicteric sclera, moist oral mucosa CVS: Regular rate and rhythm Lungs: Bilateral air entry, no wheezing noted Abdomen: Soft, nontender, no rebound, no guarding Ext: No lower extremity edema, no calf tenderness Results & Data Results & Data Vital Signs (Past 12 Hours) Vital Signs Temp Pulse Resp BP Pulse Ox O2 Del Method 06/26/24 07:57 36.4 C L 80 16 132/69 100 Room Air 06/26/24 07:35 Room Air PG Care Time/CCT Total # of Minutes Spent Total Time Spent with Patient: Total time spent is greater than 50% in coordination of care (as documented) at patient's floor/unit and/or counseling patient: Coding Level of Care Code 22908 SUB INP/OBS CARE 2/35MIN Diagnoses Metabolic encephalopathy G93.41 Dementia F03.90 Atrial fibrillation with rapid ventricular response I48.91 UTI (urinary tract infection) N39.0 Hyponatremia E87.1 Multifactorial gait disorder R26.89
[2024-06-26 21:07] VITALS: PULSE 84; RESP 20; TEMP 97.7; O2SAT 96
[2024-06-27 09:36] VITALS: BP 120/69
--- NOTE | 2024-06-27 12:11 | Discharge Summary ---
Discharge Summary Date of Service June 27, 2024 Principal Dx & Hospital Course #1 = Principal Diagnosis (1) Metabolic encephalopathy: (2) Dementia: (3) Atrial fibrillation with rapid ventricular response: (4) UTI (urinary tract infection): (5) Hyponatremia: (6) Multifactorial gait disorder: Plan 84-year-old male with past medical history of chronic hyponatremia, osteoarthritis presented to the ED with generalized weakness, multiple falls and inability to walk. He was recently started on desmopressin for nocturia at 0.6 mg daily on 05/21/2024 and was noted to have a sodium of 116 in the emergency room. #Metabolic encephalopathy #Dementia Encephalopathy likely multifactorial given underlying dementia, hyponatremia and UTI Patient appears to be at his baseline mentation He has been treated for UTI with no major change in his mentation B12 is 765 TSH is 1.[address] without any acute ischemic changes but with dilated ventricles Continue Seroquel 100 mg p.o. nightly Continue sertraline 75 mg p.o. daily Patient has been off one-to-one since 06/20/2024 Patient is going home with home health and will follow-up with his PCP Patient will benefit from outpatient neurology referral through PCP for evaluation given his dementia and gait disturbance for possible NPH #Hyponatremia Patient does have chronic hyponatremia with a sodium around 130s He was treated with 3% saline and also salt tabs and fluid restriction Nephrology saw the patient during hospital stay Continue salt tabs 1 g twice daily with fluid restriction of 1800 mL daily Desmopressin has been discontinued Sodium levels are stable Patient will need repeat labs in 1 week's time either through nephrology or through his PCP and to follow-up with them for further advice regarding continuing salt tabs #Urinary tract infection with urinary retention, present on admission Urine culture initially grew Enterococcus and he was initially treated with IV ampicillin with last dose on 06/09/2024 Patient had a Solorzano catheter which he pulled out initially on 06/13/2024 and a new Solorzano catheter was placed Urology has advised against inserting Solorzano catheters Solorzano catheter was removed on 06/24/2024 Patient was also treated with short course of IV ceftriaxone for 3 days from 06/18/2024 to 06/20/2024 Continue Flomax As per urology, if needed patient should get straight cath for urinary retention Patient is afebrile and white count is normal Outpatient follow-up with PCP #Atrial fibrillation with RVR #Elevated troponin New onset on 06/01/2024 Heart rate appears to be controlled since 06/13/2024 Elevated troponin suspected from demand ischemia Cardiology saw the patient (Dr. Rosa Bearden) Echo showed Continue Toprol-XL 25 mg p.o. daily Cardiology recommended continuing beta-payton for A-fib prevention and farmworker [employer] stated that they are reluctant to start NOAC given current mental status issues and cardiology plans on doing outpatient monitoring for surveillance. Will have patient follow-up with cardiology as outpatient for evaluation for NOAC #Gait disturbance #Frequent falls #Hip arthritis PT/OT saw the patient recommended rehab however wants to take him home with home health The patient has a medical condition which requires positioning of the body in ways not feasible with ordinary bed, given his frequent falls with hip arthritis and gait disturbance, patient will benefit from a hospital bed which will also help alleviate arthritic pain. Patient is also high risk for aspiration given his mentation issues and would benefit from hospital bed Patient seen and examined today. He appears comfortable. Hospital bed has been delivered to his house. I have gone over the discharge care plan with patient's Lesa on the phone including medications, discharge instructions and follow- up in great detail and answered her questions. This discharge took greater than 30 minutes to coordinate Admission HPI Per Admitting Provider Alvino Ibanez is 84 year old male who presents to the ER with generalized weakness, multiple falls. Unable to get any history from the patient, he is unsure where he is and why he is here. His reports significant decline over the last 4 days and now he cannot get up to walk at all. No significant injury other than skin tears from his falls but fell and hit his head in the bathroom last night. No hip pain. He has baseline dementia and difficulty with the dates but usually ambulatory without aids and goes for walks frequently. No respiratory, urinary, gastrointestinal symptoms. No fever or chills. No one sided weakness, change in speech, hearing or vision. Notably he was recently started on desmopressin for nocturia at 0.6mg PO daily (usual starting dose 0.05-0.1mg) in the setting of chronic steroid use. He started this on 05/21 and no labs since then. Sodium was noted to be 116 in the ER. Therefore he was referred to medicine for admission and ongoing management of hyponatremia. Discharge Exam General: No acute distress Psych: Awake and oriented to self HEENT: Anicteric sclera, moist oral mucosa CVS: Regular rate and rhythm Lungs: Bilateral air entry, no wheezing noted Abdomen: Soft, nontender, no rebound, no guarding Ext: No lower extremity edema, no calf tenderness Discharge Plan Discharge Items Patient Disposition: Home - Home Health Services Reason For Visit: HYPONATREMIA Discharge Diagnosis: #Metabolic encephalopathy #Dementia #Hyponatremia #Atrial fibrillation with RVR #Gait disturbance #Frequent falls #Hip arthritis Condition on Discharge: Fair Activity: As commented below Activity Comment: as tolerated with assistance only Non-emergency contact: Primary Care Provider Call non-emergency contact if: you have any medication questions, your symptoms worsen, your pain is not controlled and you have a fever Follow-up/Referrals: Mike Fierro MD [Physician] - Mike Sullivan MD [Primary Care Provider] - Rosa Bearden DO [Physician] - Diet: Regular Fluids: 1800ml (7 cups) Diet Texture: Mechanical soft (ground) Addtl Attending Provider Instructions: DISCHARGE INSTRUCTION TO PATIENT/FAMILY: Follow-up with your primary care provider within 1 week regarding: Posthospital discharge, medication review, medication refills and follow-up on all your medical problems Please take all your discharge medications, discharge information and discharge instructions to all your doctors appointments. Avoid all NSAIDs including ibuprofen, Motrin, Advil, Aleve, naproxen, meloxicam, Toradol, diclofenac Labs through PCP in 1 week: CBC, CMP, MG You have been prescribed salt tabs 1 g twice daily for low sodium (hyponatremia): Please follow-up with either your PCP or area operations manager to review this medication after rechecking sodium levels in 1 week You have been diagnosed with atrial fibrillation. You were seen by farmworker [employer] during hospital stay. Cardiology has recommended that you follow-up with them as an outpatient to discuss starting on anticoagulation (blood thinner) Please follow-up with your PCP for referral to neurology as an outpatient for evaluation of dementia with gait disturbance Pending Studies at Discharge: No Stand-Alone Forms: [employer], Smoking Cessation Medications and DC Order Prescriptions: New metoprolol succinate 25 mg Tablet Extended Release 24 Hr 25 mg PO QAM Qty: 30 0RF tamsulosin 0.4 mg Capsule 0.4 mg PO HS Qty: 30 0RF sodium chloride 1,000 mg Tablet,Soluble 1,000 mg PO BID Qty: 30 0RF Rx Instructions: FOLLOW UP WITH MANUFACTURING TEAM LEADER OR PCP IN 1 WEEK TO REVIEW MEDICATION quetiapine 100 mg Tablet 100 mg PO QPM Qty: 30 0RF polyethylene glycol 3350 [Miralax] 17 gram Powder In Packet 17 g PO DAILY PRN (Reason: constipation) Qty: 14 0RF Rx Instructions: AVAILABLE OVER THE COUNTER Continued diclofenac sodium 1 % gel 2 g topical QID Rx Instructions: apply to single elbow, wrist or hand; for hand includes palm/fingers/back of hand sertraline 50 mg tablet 75 mg PO DAILY Qty: 45 11RF calcium citrate-vitamin D3 [Citracal + D Maximum] 315-250 mg-unit Tablet 1 tab PO 2XWK Discontinued methylprednisolone 4 mg tablet 4 mg PO DAILY Qty: 90 3RF rivastigmine tartrate 3 mg capsule 3 mg PO BID Qty: 60 3RF desmopressin 0.2 mg tablet 0.6 mg PO HS Qty: 90 11RF Discharge Orders: Discharge Order (Routine); Ordered 06/27/24 Ordered By: Rikki Quiroz/Other Patient Handouts: Dementia Safety Tips for Caregivers, Dementia Daily Care, Dementia Caregiver Tips, Dementia Caregiver Communication Admission Data Admit Date/Time: 05/29/24 14:46 Attending Provider: Rikki Olguin Admit Provider: Naveen Leiva Primary Care Provider: Mike Sullivan Other Providers: [facility]; [facility]; Naveen Leiva; Mike Fierro; Rick Sullivan Kevin C.; Leah Rodriguez; Rosa Bearden; Marcello Cardenas; Nakul Park; Bradford Hickman; Gwen Martinez; Mike Flor; Gracie Juárez; Concha Gama; Neftali Burroughs; Ann-Marie Boles; Rishabh Yeung; Svetlana Jimenez; Devon Charles; [facility]; [facility] Hospital Stay Data Consultations 05/29/24 14:22 ED Decision to Admit Stat 05/30/24 07:49 Consult Nephrology Routine 06/01/24 13:28 Consult Cardiology Routine 06/14/24 08:12 Consult Urology Routine Diagnostic Imagining Performed 05/29/24 13:10 CT head/brain wo con Stat 05/29/24 13:29 CT cervical spine wo con Stat 06/05/24 17:[address] [CT head/brain wo con] Routine Laboratory Results - last 72 hr 06/18/24 06/25/24 06/25/24 10:03 08:11 14:50 WBC 5.34 RBC 3.59 L Hgb 11.6 L Hct 33.2 L MCV 92.5 MCH 32.3 MCHC 34.9 RDW Std Deviation 43.4 RDW Coeff of Elisa 12.9 Plt Count 369 MPV 8.9 L Immature Gran % (Auto) 1.1 Neut % (Auto) 65.1 Lymph % (Auto) 22.7 Wetzel % (Auto) 8.8 Eos % (Auto) 1.9 Baso % (Auto) 0.4 Neut # (Auto) 3.48 Lymph # (Auto) 1.21 Wetzel # (Auto) 0.47 Eos # (Auto) 0.10 Baso # (Auto) 0.02 Immature Gran # (Auto) 0.06 Sodium 134 L Potassium 4.8 Chloride 100 Carbon Dioxide 30 Anion Gap 4 BUN 31 H Creatinine 0.63 Est Cr Clr Drug Dosing 66.2 Est GFR ( Amer) 104.1 Est GFR (Non-Af Amer) 89.9 BUN/Creatinine Ratio 49.2 H Glucose 119 H Calcium 9.0 Magnesium 2.1 Whole Bld Vitamin B1 109 Vitamin B12 765 TSH 1.423 Urine Color Red Urine Appearance Cloudy A Urine pH 6.0 Ur Specific [place] >= 1.030 Urine Protein 2+ H Urine Glucose (UA) Negative Urine Ketones Negative Urine Blood 3+ H Urine Nitrite Negative Urine Bilirubin Negative Urine Urobilinogen Negative Ur Leukocyte Esterase Negative Urine RBC >20 H Urine WBC 0-5 Ur Epithelial Cells 0-2 Urine Bacteria None Seen Chest X-Ray 05/29/24 12:48 XR chest 1V portable HISTORY: Sepsis COMPARISON: Chest 02/06/2008. FINDINGS: No pneumothorax. No pleural effusions. The heart is normal in size. Mild diffuse interstitial thickening. This may be chronic. No evidence for pulmonary edema. No acute fractures. Patchy left retrocardiac airspace opacities are noted. IMPRESSION: Patchy left retrocardiac airspace opacities. This could represent atelectasis or a mild pneumonitis. ACT 112: Negative or not required by law. Electronically signed by: Tha Zelaya M.D. 05/29/2024 3:[address] 05/29/24 13:[address] DOSE: HISTORY: fall, confusion TECHNIQUE: Multiaxial CT images of the head were performed without the use of intravenous contrast. Automated exposure control was utilized for this study. A dose lowering technique was utilized adhering to the principles of ALARA. Comparison: None. Findings: A few partially opacified ethmoid air cells. The mastoid air cells are clear. No fluid levels within the paranasal sinuses. The calvarium and skull bas e are intact. There is no mass, hematoma, midline shift, acute infarct. White matter hypodensity is nonspecific but suggestive of microvascular ischemic change. The ventricles and sulci demonstrate mild age-related involutional changes. Impression: No acute intracranial abnormality. Atrophy and microvascular ischemic changes. ACT 112: Negative or not required by law. Electronically signed by: Tha Zelaya M.D. 05/29/2024 2:[address] 05/29/24 13:29 CT cervical spine wo con CLINICAL HISTORY: fall TECHNIQUE: Multidetector row helical CT of the cervical spine was performed without administration of intravenous contrast. Coronal and sagittal reformations were obtained. Automated dose lowering techniques and/or adjustment according to patient size were utilized for this exam. Comparison: None available at the time of this dictation. FINDINGS: No acute fractures or subluxations are identified. Degenerative changes are seen in the visualized spine. The alignment is normal. Soft tissues are unremarkable. IMPRESSION: Degenerative changes without evidence of acute bony injury. ACT 112: Negative or not required by law. Electronically signed by: Gabriel Jain M.D. 05/29/2024 2:[address] 06/05/24 17:04 CT OF THE HEAD WITHOUT CONTRAST CLINICAL HISTORY: acute confusion COMPARISON STUDY: Head CT May. CT DOSE: 1406.31 mGy.cm TECHNIQUE: Helical axial images of the head were obtained without IV contrast. Automated exposure control was utilized for the study. A dose lowering technique was utilized adhering to the principles of ALARA. FINDINGS: No acute intracranial hemorrhage, midline shift or mass effect is present. There is moderate dilatation of the lateral and third ventricles. White matter hypodensity suggests small vessel disease. The basal cisterns are patent. No extra-axial collections are present. There are no findings to suggest acute dural sinus thrombosis or acute territorial infarct. No significant calvarial abnormalities are present. Visualized portions of the sinuses and mastoid air cells are clear. IMPRESSION: 1. No acute intracranial hemorrhage. 2. Moderate dilatation of the lateral and third ventricles, slightly out of proportion to sulcal enlargement. This is likely due to atrophy although normal pressure hydrocephalus could appear similar. ACT 112: Negative or not required by law. Electronically signed by: Jerome Spence M.D. 06/05/2024 6:06 PM Pending Results Patient Have Any Pending Studies at Discharge: No Discharge Instructions Given to Patient (Per Discharging Provider) DISCHARGE INSTRUCTION TO PATIENT/FAMILY: Follow-up with your primary care provider within 1 week regarding: Posthospital discharge, medication review, medication refills and follow-up on all your medical problems Please take all your discharge medications, discharge information and discharge instructions to all your doctors appointments. Avoid all NSAIDs including ibuprofen, Motrin, Advil, Aleve, naproxen, meloxicam, Toradol, diclofenac Labs through PCP in 1 week: CBC, CMP, MG You have been prescribed salt tabs 1 g twice daily for low sodium (hyponatremia): Please follow-up with either your PCP or area operations manager to review this medication after rechecking sodium levels in 1 week You have been diagnosed with atrial fibrillation. You were seen by farmworker [employer] during hospital stay. Cardiology has recommended that you follow-up with them as an outpatient to discuss starting on anticoagulation (blood thinner) Please follow-up with your PCP for referral to neurology as an outpatient for evaluation of dementia with gait disturbance Total Time Total Time Spent Total Time Spent (In Minutes): 35 Coding Level of Care Code 54782 INP/OBS DISCH >30 MIN Diagnoses Metabolic encephalopathy G93.41 Dementia F03.90 Atrial fibrillation with rapid ventricular response I48.91 UTI (urinary tract infection) N39.0 Hyponatremia E87.1 Multifactorial gait disorder R26.89
--- NOTE | 2024-06-29 15:07 | Coding Query ---
ANSWER: I am unable to determine. I did not take over the care of this patient until 06/24/2024: Can you please send this to providers who took care of him prior to that as they are better able to answer this question. Thank you CODING QUERY To promote full compliance with coding requirements relating to patient care, provider participation is requested in all cases of director of nuclear medicine uncertainty. Please assist us with the question(s) below: Pt admitted on 05/29 for hyponatremia. UA on 05/29-->neg for leuks UA on 06/02-->Leuks+1 06/01 pn-Urinary retention - likely due to immobility, zyprexa - straight cath prn 06/02 pn-UTI - suspect due to straight cath - likely due to immobility, zyprexa - wallis placed 06/03 pn-found to have hyponatremia and enterococcal uti poa, catheter associated DS-Urinary tract infection with urinary retention, present on admission Urine culture initially grew Enterococcus and he was initially treated with IV ampicillin (06/03) with last dose on 06/09/2024 Coding Question(s): Can you please further clarify if the patient's CAUTI was present on admission by providing the clinical criteria on admission (05/29)? Physician's Response(s): Thank you Haydee Coughlin Principal Diagnosis: "that condition established after study, to be chiefly responsible for occasioning the admission of the patient to the hospital for care." Co-Existing Principal Diagnosis: "when two or more diagnoses equally meet the criteria for principal diagnosis as determined by the circumstances of admission, diagnostic work up, and/or therapy provided, and the Alphabetic Index, Tabular List, or another coding guideline does not provide sequencing direction, any one of the diagnoses may be sequenced first." "When the physician has documented what appears to be a current diagnosis in the body of the record, but has not included the diagnosis in the final diagnostic statement, the physician should be asked whether the diagnosis should be added." (Source [facility]oding [facility] 2 QTR90. p3-4) BRITANY
--- NOTE | 2024-06-30 15:03 | Coding Query ---
CODING QUERY To promote full compliance with coding requirements relating to patient care, provider participation is requested in all cases of coder operator uncertainty. Please assist us with the question(s) below: Pt admitted on 05/29 for hyponatremia. UA on 05/29-->neg for leuks UA on 06/02-->Leuks+1 06/01 pn-Urinary retention - likely due to immobility, zyprexa - straight cath prn 06/02 pn-UTI - suspect due to straight cath - likely due to immobility, zyprexa - wallis placed 06/03 pn-found to have hyponatremia and enterococcal uti poa, catheter associated DS-Urinary tract infection with urinary retention, present on admission Urine culture initially grew Enterococcus and he was initially treated with IV ampicillin (06/03) with last dose on 06/09/2024 Coding Question(s): Can you please further clarify if the patient's CAUTI was present on admission by providing the clinical criteria on admission (05/29)? Physician's Response(s): I believe the UTI was poa, however he did not have a cath poa, so it cannot be a CAUTI but just uti poa Thank you Haydee Coughlin, CDIP, CCS Principal Diagnosis: "that condition established after study, to be chiefly responsible for occasioning the admission of the patient to the hospital for care." Co-Existing Principal Diagnosis: "when two or more diagnoses equally meet the criteria for principal diagnosis as determined by the circumstances of admission, diagnostic work up, and/or therapy provided, and the Alphabetic Index, Tabular List, or another coding guideline does not provide sequencing direction, any one of the diagnoses may be sequenced first." "When the physician has documented what appears to be a current diagnosis in the body of the record, but has not included the diagnosis in the final diagnostic statement, the physician should be asked whether the diagnosis should be added." (Source [facility]oding [facility] 2 QTR90. p3-4) BRITANY
== END 2024-06-27 14:00 | disposition home health service (06) | DRG 640 ==
LOC: ED 12:40 → EDINP 14:46 → SUATTDRO 14:46 → 2E 18:17 → 2W 06-07 17:35